=== PATIENT | male | born 1940 | race Hispanic/Latino ===

== ENCOUNTER 2018-04-16 18:17 | Observation (INO) | payer MEDICARE ==
[2018-04-16 18:17] VITALS: BMI 25.5
[2018-04-16 18:28] VITALS: BP 127/85; TEMP 98.6
--- NOTE | 2018-04-16 19:18 | ED PDOC ---
HPI: General Adult Time Seen by Provider: 04/16/18 18:31 Chief Complaint (Nursing): Shortness Of Breath Chief Complaint (Provider): Anxiety History Per: Patient, Family History/Exam Limitations: no limitations Onset/Duration Of Symptoms: Days Have you had recent travel within the past 21 days to any of the following countries: [place], [place], [place] or [place]?: No Current Symptoms Are (Timing): Still Present Additional Complaint(s): 77yo male, comes to ER accompanied by his daughter for evaluation of possible anxiety. Patient reports to having difficulty sleeping x 3 months and has not slept at all for the past 3 days. Patient states over the course of the past 3 days, he feels weak and today he felt anxious associated with intermittent palpitations, dizziness, and shortness of breath. He was evaluated by his PMD for difficulty sleeping and was prescribed Gabapentin which he takes before bed with no relief. Per daughter, patient has multiple stressors at home and "needs to get out of home environment." She states the patient's nephew lives "rent free" and comes and goes all hrs at night time, is increasingly noisy which stresses out the patient. Daughter states patient has refused to seek help for this; patient denies any suicidal or homicidal ideation. He also denies any headache, chest pain, nausea, vomiting, abdominal pain, vision changes or numbness. Patient has an appointment with Dr. Sr on 04/18/18. PMD: Dr. Sr Past Medical History Reviewed: Historical Data, Nursing Documentation, Vital Signs Vital Signs: Last Vital Signs Temp 98.6 F 04/17/18 04:27 Pulse 89 04/17/18 04:27 Resp 16 04/17/18 04:27 BP 127/85 04/17/18 04:27 Pulse Ox 97 04/19/18 14:24 - Medical History PMH: Benign Prostatic Hyperplasia, HTN - Surgical History Surgical History: Endoscopy, Hernia Repair - Family History Family History: States: Hypertension - Living Arrangements Living Arrangements: With Family - Social History Current smoker - smoking cessation education provided: No Alcohol: None Drugs: Cannabis (daily) - Home Medications Home Medications: Ambulatory Orders Medication Instructions Recorded Metoprolol Succinate XL [Toprol XL] 25 mg PO BID #0 tab 03/17/15 Tamsulosin [Flomax] 0.4 mg PO DAILY #0 cap 03/17/15 Polyethylene Glycol 3350 [Miralax] 17 gm PO DAILY #48 ml 03/21/15 - Allergies Allergies/Adverse Reactions: Allergies Allergy/AdvReac Type Severity Reaction Status Date / Time No Known Allergies Allergy Verified 03/21/15 12:26 Review of Systems ROS Statement: Except As Marked, All Systems Reviewed And Found Negative Constitutional: Negative for: Fever, Chills Eyes: Negative for: Vision Change Cardiovascular: Positive for: Palpitations. Negative for: Chest Pain Respiratory: Positive for: Shortness of Breath Neurological: Positive for: Dizziness Psych: Positive for: Anxiety, Other (trouble sleeping). Negative for: Suicidal ideation Physical Exam - Reviewed Nursing Documentation Reviewed: Yes Vital Signs Reviewed: Yes - Physical Exam Comments: GENERAL APPEARANCE: Patient is awake, alert, oriented x 3, in no acute distress. (+) agitated SKIN: Warm, dry; (-) cyanosis HEAD: (-) scalp swelling, (-) scalp tenderness. EYES: (-) conjunctival pallor, (-) scleral icterus, (-) nystagmus. ENMT: Mucous membranes moist. Airway patent: (-) stridor. NECK: Supple, FROM HEART AND CARDIOVASCULAR: (-) irregularity CHEST AND RESPIRATORY: (-) rales, (-) rhonchi, (-) wheezes; breath sounds diminished bilaterally. Respirations even and nonlabored. ABDOMEN: Soft, (-) distention, (-) tenderness, (-) guarding. NEURO AND PSYCH: Mental status as above. Affect: Emotional and tearful business lawyer: Intact. Pupils equal and reactive; EOMI; (-) facial asymmetry; tongue and uvula midline. Gait steady, speech clear. - Laboratory Results Result Diagrams: 04/16/18 19:38 04/16/18 19:38 - ECG O2 Sat by Pulse Oximetry: 97 (RA) Pulse Ox Interpretation: Normal Medical Decision Making Medical Decision Making: Impression: Fatigue, SOB, possible anxiety Plan: -- Labs -- EKG -- Chest x-ray -- Xanax 0.25mg PO -- IV access Initial triage EKG: Afib @ 92bpm, isolated ST elevation in V1 and V2 with no reciprocal changes as read by ED MD Conner 1934 Afib @ 80bpm, QTc 410, isolated ST elevation in V1 and V2 with no reciprocal changes as read by ED MD Conner [address] Izquierdo, family practice resident who is agreeable to evaluation in ED for new onset Afib. 1999 Case endorsed to Antoni Royal PA-C at 1999. Patient pending lab results, further disposition. Scribe Attestation: Documented by Griselda Mathis, acting as a scribe for HERB Redman Provider Scribe Attestation: All medical record entries made by the Scribe were at my direction and personally dictated by me. I have reviewed the chart and agree that the record accurately reflects my personal performance of the history, physical exam, medical decision making, and the department course for this patient. I have also personally directed, reviewed, and agree with the discharge instructions and disposition. Disposition - Clinical Impression Clinical Impression: New onset a-fib - Patient ED Disposition Is Patient to be Admitted: Transfer of Care (Case endorsed to Antoni Royal PA-C at 1999. Patient pending lab results, further disposition.) - Disposition Disposition: Transfer of Care (Case endorsed to Antoni Royal PA-C at 1999. Patient pending lab results, further disposition.) Disposition Time: 20:00 Condition: FAIR - POA Present On Arrival: None
[2018-04-16 19:48] LABS: PROTHROMBIN TIME 11.6 Seconds (9.8-13.1)
[2018-04-16 19:50] LABS: PARTIAL THROMBOPLASTIN TIME 32.9 Seconds (25.6-37.1)
[2018-04-16 19:55] LABS: BASO % 0.4 % (0.0-2.0); EOS # 0.2 K/uL (0.0-0.7); EOS % 2.5 % (0.0-4.0); HEMOGLOBIN 13.8 g/dL (12.0-18.0); LYMPH # 1.5 K/uL (1.0-4.3); LYMPH % 21.6 % (20.0-40.0); MEAN CELL VOLUME 86.2 fl (80.0-94.0); MEAN CORPUSCULAR HEMOGLOBIN 28.4 pg (27.0-31.0); MEAN CORPUSCULAR HGB CONC 32.9 g/dL (33.0-37.0); MEAN PLATELET VOLUME 8.3 fl (7.2-11.7); MONO # 0.7 K/uL (0.0-0.8); MONO % 10.9 % (0.0-10.0); NEUT # 4.4 K/uL (1.8-7.0); NEUT % 64.6 % (50.0-75.0); NRBC % 0.1 % (0.0-0.0); RBC 4.86 Mil/uL (4.40-5.90); RED CELL DISTRIBUTION WIDTH 13.4 % (11.5-14.5); WHITE BLOOD COUNT 6.8 K/uL (4.8-10.8)
[2018-04-16 20:09] LABS: ALB/GLOB RATIO 1.4 (1.0-2.1); ALBUMIN 4.3 g/dL (3.5-5.0); ALT/SGPT 25 U/L (21-72); AST/SGOT 23 U/L (17-59); BLOOD UREA NITROGEN 12 mg/dl (9-20); CALCIUM 9.3 mg/dL (8.4-10.2); GFR NON-AFRICAN AMERICAN > 60
[2018-04-16 20:21] LABS: B-TYPE NATRIURETIC PEPTIDE 2170 pg/ml (0-900)
--- NOTE | 2018-04-16 20:28 | ED PDOC ---
- Laboratory Results Result Diagrams: 04/16/18 19:38 04/16/18 19:38 - ECG O2 Sat by Pulse Oximetry: 97 (RA) - Radiology X-Ray: Viewed By Me X-Ray Interpretation: Cardiomegaly - Progress ED Course And Treament: Case endorsed to check writer salesperson from [facility] pending labs Patient with elevated D-Dimer; explained need to CT angio chest to r/out PE but patient refusing; states he has no chest pain, shortness of breath currently and does not want more radiation exposure. Patient made aware of risks of refusing test, including blood clot which can lead to respiratory distress, cardiac arrest. Patient demonstrates full understanding, still wishes to decline test at this time. Vitals stable Case discussed with FP resident on-call for admission Disposition - Clinical Impression Clinical Impression: New onset a-fib, CHF (congestive heart failure) - POA Present On Arrival: None - Disposition Disposition: Admitted as In-Patient Disposition Time: 21:29 Condition: FAIR
--- NOTE | 2018-04-16 22:42 | CP.PCM.PCO ---
Addendum Addendum: 04/16/18 22:38 Patient seen and examined bedside in ED. AAO x3. no delirium. Patient initially refused to be admitted and after counseling about risk of leaving from hospital patient decided to stay. When patient reevaluated in ED to get admitted he states that he wont stay in ER whole night waiting for a room in telemetry( nurse presents as witness) and he wants to go home. He states he only came to ED to get prescription meds to sleep. Patient signed AMA and will leave Patient was asking for sleep medications prescription. Patient explained that if he goes AMA no prescription will be given. Patient agree and states he will have appt in clinic this 04/18/18 Patient was ordered Xanax while in ED and refused. Cased discussed with Attending in ED Elliot Tejeda 04/16/18 22:43
[2018-04-17 04:30] VITALS: PULSE 89; RESP 16
--- NOTE | 2018-04-17 09:02 | RAD ---
Date of service: 04/16/2018 PROCEDURE: CHEST RADIOGRAPH, 1 VIEW HISTORY: SOB COMPARISON: Chest x-ray 03/16/[address] chest 02/07/2016 FINDINGS: LUNGS: Vague increased opacity right medial lung base -coalescent pulmonary edema and/or interval patchy infiltrate here are considerations. This slightly more accentuated on the current chest x-ray compared the 2015. In part this may relate to some coalescing atelectatic changes as a focal right small fat containing Bochdalek's hernia was noted on the after mentioned CT exam here. PLEURA: No pneumothorax or pleural fluid seen. CARDIOVASCULAR: Cardiomegaly. Interval increased pulmonary venous congestion. OSSEOUS STRUCTURES: No significant abnormalities. VISUALIZED UPPER ABDOMEN: Normal. OTHER FINDINGS: None. IMPRESSION: Cardiomegaly and pulmonary venous congestion -the latter increased since prior exam. Ill-defined opacity medial right lung base possible infiltrate -another consideration would be contiguous atelectatic changes bordering the focal right fat containing Bochdalek's hernia here. Nevertheless it is more conspicuous on the current study compared the chest x-ray from 03/08/2015. Correlate clinically
--- NOTE | 2018-04-17 10:14 | CARD ---
APPROVED REPORT Date of service: 04/16/2018 <Conclusion> Atrial fibrillation Abnormal ECG
[2018-04-19 14:20] VITALS: O2SAT 97
== END 2018-04-16 22:22 | disposition left against medical advice (07) ==
LOC: H.ER 18:17 → H.ERHOLD 21:40 → INTOOBSV 21:40
PROVIDERS: ADMIT Family Medicine Geriatric Medicine; ATTEND Family Medicine Geriatric Medicine
DX: I48.91 Unspecified atrial fibrillation (principal); R79.1 Abnormal coagulation profile; R53.83 Other fatigue; I11.0 Hypertensive heart disease with heart failure; I50.9 Heart failure, unspecified; F41.9 Anxiety disorder, unspecified; F12.90 Cannabis use, unspecified, uncomplicated; N40.0 Benign prostatic hyperplasia without lower urinary tract symptoms
CPT/HCPCS: 71045; 80053; 82948; 83880; 84484; 85025; 85378; 85610; 85730; 93005; 99285; G0378

== ENCOUNTER 2018-08-29 18:56 | Emergency (ER) | payer MEDICARE ==
[2018-08-29 18:56] VITALS: BMI 25.5
[2018-08-29] MEDS ORDERED: Albuterol-Ipratrop 3 mg / 0.5 (3 ml) UD INH STA (19:36)
--- NOTE | 2018-08-29 19:40 | ED PDOC ---
HPI: SOB/CHF/COPD Time Seen by Provider: 08/29/18 19:24 Chief Complaint (Nursing): Shortness Of Breath Chief Complaint (Provider): SOB History Per: Patient History/Exam Limitations: no limitations Additional Complaint(s): Pt reports SOB X "many months", cough with white sputum production. Denies fever, CP, palpitations. States compliant with Xarelto. Past Medical History Vital Signs: Last Vital Signs Temp 97.9 F 08/29/18 19:00 Pulse 74 08/29/18 19:00 Resp 18 08/29/18 19:18 BP 146/98 H 08/29/18 19:00 Pulse Ox 96 08/29/18 19:18 - Medical History PMH: Hiatal Hernia, HTN Denies: Cardia Arrhythmia, CHF, Hypercholesterolemia, Mitral Valve Prolapse, Peripheral Edema, Chronic Kidney Disease - Surgical History Surgical History: Endoscopy, Hernia Repair Denies: Appendectomy, CABG, Carotid Endarterectomy, Cholecystectomy, Coronary Stent, Pacemaker, Tonsillectomy - Family History Family History: States: Unknown Family Hx, Hypertension - Living Arrangements Living Arrangements: With Family - Social History Current smoker - smoking cessation education provided: No Drugs: Cannabis - Home Medications Home Medications: Ambulatory Orders Medication Instructions Recorded Metoprolol Succinate XL [Toprol XL] 25 mg PO BID #0 tab 03/17/15 Tamsulosin [Flomax] 0.4 mg PO DAILY #0 cap 03/17/15 Polyethylene Glycol 3350 [Miralax] 17 gm PO DAILY #48 ml 03/21/15 Albuterol 0.083% [Albuterol 0.083% 3 ml IH Q6H PRN #30 neb 08/29/18 Inhal Hawa (2.5 mg/3 ml) UD] Albuterol 0.5% [Albuterol 0.5% 3 ml IH Q6H PRN #30 neb 08/29/18 Inhal Hawa (2.5 mg/0.5 ml) UD] Albuterol HFA [Ventolin HFA 90 2 puff IH [id number] PRN #1 bottle 08/29/18 mcg/actuation (8 g)] Azithromycin [Zithromax] 500 mg PO DAILY #3 tab 08/29/18 Nebulizer [Compact Compressor 1 dev XX PRN PRN #1 dev 08/29/18 Nebulizer] - Allergies Allergies/Adverse Reactions: Allergies Allergy/AdvReac Type Severity Reaction Status Date / Time No Known Allergies Allergy Verified 03/21/15 12:26 Review of Systems Constitutional: Negative for: Fever, Chills Cardiovascular: Negative for: Chest Pain, Palpitations Respiratory: Positive for: Cough, Shortness of Breath, Sputum (White) Gastrointestinal: Negative for: Abdominal Pain Skin: Negative for: Rash Neurological: Negative for: Headache Physical Exam - Reviewed Nursing Documentation Reviewed: Yes Vital Signs Reviewed: Yes - Physical Exam Appears: Positive for: Well, No Acute Distress (Speaking full sentences) Skin: Positive for: Normal Color, Warm, Dry Eye Exam: Positive for: Normal appearance, EOMI, PERRL Cardiovascular/Chest: Positive for: Irregularly Irregular Respiratory: Positive for: Normal Breath Sounds. Negative for: Rales, Rhonchi, Wheezing Gastrointestinal/Abdominal: Positive for: Normal Exam Extremity: Positive for: Normal ROM Neurologic/Psych: Positive for: Alert, Oriented - Laboratory Results Result Diagrams: 08/29/18 19:45 08/29/18 19:45 - ECG O2 Sat by Pulse Oximetry: 96 Medical Decision Making Medical Decision Makin yo male with SOB. - labs - EKG - CXR - Albuterol/atrovent nebs 23:23 --CTA chest FINDINGS: There are scattered emphysematous blebs present. Biapical scarring is seen. There are confluent opacities present at both lung bases and lingula, compatible with pneumonia. There is bright opacification of the aorta and pulmonary arterial structures. The aorta is normal caliber and there is no dissection of the intima. No defect is seen in the pulmonary arteries to suggest pulmonary embolus. The lungs are fully expanded and there is no consolidation, mass, or pleural effusion. Heart is severely enlarged. Pulmonary venous congestive changes are present. Diffuse coronary calcifications are present. There is severe reflux of contrast into the IVC and hepatic veins consistent with right heart failure. There are calcified right hilar lymph nodes present, consistent with prior granulomatous disease. There is a 3 cm cyst present in the superior pole of the right kidney. The bony structures are free of lytic or blastic lesions. Multilevel degenerative changes are seen involving the thoracic spine. Scattered calcifications are seen involving the aorta and visualized major branches compatible with atherosclerosis. IMPRESSION: 1. CTA Chest negative for pulmonary embolus. 2. Scattered emphysematous blebs. 3. Pneumonia. 4. Severely-enlarged heart. Pulmonary venous congestive changes and diffuse coronary calcifications. 5. Evidence of right heart failure. 6. Evidence of prior granulomatous disease. 7. Right kidney cyst. Disposition - Clinical Impression Clinical Impression: Pneumonia - Disposition Disposition: Against Medical Advice Disposition Time: 23:40 Condition: UNKNOWN Prescriptions: Albuterol HFA [Ventolin HFA 90 mcg/actuation (8 g)] 2 puff IH [id number] PRN #1 bottle PRN Reason: Shortness Of Breath Albuterol 0.083% [Albuterol 0.083% Inhal Hawa (2.5 mg/3 ml) UD] 3 ml IH Q6H PRN #30 neb PRN Reason: Shortness Of Breath Albuterol 0.5% [Albuterol 0.5% Inhal Hawa (2.5 mg/0.5 ml) UD] 3 ml IH Q6H PRN #30 neb PRN Reason: Shortness Of Breath Azithromycin [Zithromax] 500 mg PO DAILY #3 tab Nebulizer [Compact Compressor Nebulizer] 1 dev XX PRN PRN #1 dev PRN Reason: Shortness Of Breath Instructions: Pneumonia in Adults Forms: [email or web address] ([place])
[2018-08-29] MEDS ORDERED: Albuterol-Ipratrop 3 mg / 0.5 (3 ml) UD ONE (19:43)
[2018-08-29 20:00] LABS: BASO % 0.8 % (0.0-2.0); EOS # 0.1 K/uL (0.0-0.7); EOS % 2.5 % (0.0-4.0); HEMOGLOBIN 13.6 g/dL (12.0-18.0); LYMPH # 1.2 K/uL (1.0-4.3); MEAN CELL VOLUME 84.8 fl (80.0-94.0); MEAN CORPUSCULAR HEMOGLOBIN 27.7 pg (27.0-31.0); MEAN CORPUSCULAR HGB CONC 32.7 g/dL (33.0-37.0); MEAN PLATELET VOLUME 8.7 fl (7.2-11.7); MONO # 0.5 K/uL (0.0-0.8); MONO % 9.6 % (0.0-10.0); NEUT # 3.1 K/uL (1.8-7.0); NEUT % 62.1 % (50.0-75.0); RBC 4.92 Mil/uL (4.40-5.90); WHITE BLOOD COUNT 4.9 K/uL (4.8-10.8)
[2018-08-29 20:16] LABS: INR 1.7; PROTHROMBIN TIME 19.7 Seconds (9.8-13.1)
[2018-08-29 20:19] LABS: PARTIAL THROMBOPLASTIN TIME 41.7 Seconds (25.6-37.1)
[2018-08-29 20:52] LABS: ALB/GLOB RATIO 1.3 (1.0-2.1); ALBUMIN 3.9 g/dL (3.5-5.0); ALT/SGPT 42 U/L (21-72); AST/SGOT 35 U/L (17-59); BLOOD UREA NITROGEN 23 mg/dl (9-20); CALCIUM 9.2 mg/dL (8.4-10.2); GFR NON-AFRICAN AMERICAN > 60
[2018-08-29] MEDS ORDERED: Sodium Chloride 0.9% 50 ML IV ONE (22:11)
[2018-08-29] MEDS ORDERED: Iodixanol 320 MG/ML 100 ML BOTTLE IV ONE (22:11)
[2018-08-29 22:52] VITALS: BP 134/87; RESP 20
[2018-08-29] MEDS ORDERED: Azithromycin 500 MG in Sodium Chloride 0.9% 250 ML IV STA (23:25)
[2018-08-29 23:26] VITALS: O2SAT 96
[2018-08-29 23:52] VITALS: PULSE 103; TEMP 97.8
--- NOTE | 2018-08-30 09:10 | RAD ---
Date of service: 08/29/2018 HISTORY: SOB COMPARISON: Frontal chest radiograph 04/08/2018. FINDINGS: LUNGS: No active pulmonary disease. PLEURA: No significant pleural effusion identified, no pneumothorax apparent. CARDIOVASCULAR: No aortic atherosclerotic calcification present. Cardiomegaly reiterated. Borderline pulmonary vascular congestion. OSSEOUS STRUCTURES: No significant abnormalities. VISUALIZED UPPER ABDOMEN: Normal. OTHER FINDINGS: None. IMPRESSION: Borderline pulmonary vascular congestion. No acute pulmonary disease appreciable.
--- NOTE | 2018-08-30 10:01 | CT ---
Date of service: 08/29/2018 PROCEDURE: CT Chest with contrast (Pulmonary Angiogram) HISTORY: SOB COMPARISON: Chest CT with contrast 02/07/2016. TECHNIQUE: Axial computed tomography images were obtained of the chest in the pulmonary arterial phase of enhancement. Coronal and sagittal reformatted images were created and reviewed. Intravenous contrast dose: Visipaque 320, 90 cc Radiation dose: Total exam DLP = 411.47 mGy-cm. This CT exam was performed using one or more of the following dose reduction techniques: Automated exposure control, adjustment of the mA and/or kV according to patient size, and/or use of iterative reconstruction technique. FINDINGS: PULMONARY ARTERIES: Unremarkable. No pulmonary embolism. AORTA: No acute findings. No thoracic aortic aneurysm. No aortic atherosclerotic calcification or mural plaque present. LUNGS: Limited ground-glass opacity is seen at the bilateral lung bases as well as dependent subsegmental atelectasis at the right greater than left bases. No nodule, mass or pulmonary consolidation. PLEURAL SPACES: Unremarkable. No effusion or pneumothorax. Minimal mammillation right hemidiaphragm versus small Bochdalek hernia noted at the right hemidiaphragm posteriorly containing only mesenteric fat. HEART: Cardiomegaly identified. No increased right:left ventricle ratio. Calcified atherosclerotic changes seen at the thoracic aorta without aneurysm development. Extensive coronary artery calcified calcifications are identified. LYMPH NODES: No lymphadenopathy. BONES, CHEST WALL: Unremarkable. No fracture or destructive lesion OTHER FINDINGS: Small hiatal hernia encountered. Upper pole right renal cyst appears stable as well as visualized lower pole left renal cyst. Left lobe hepatic lucency increased in size slightly. IMPRESSION: 1. No CT evidence of acute pulmonary embolus. 2. Limited ground-glass opacity bilateral lower lobe bases. Limited subsegmental atelectasis right greater than left lung base. No acute alveolitis. 3. Stable cardiomegaly. No definite pulmonary vascular congestion. 4. Small hiatal hernia and mammillation right hemidiaphragm again evident. 5. Incidental abdominal findings as discussed above. Preliminary report provided by Stewart, 08/29/2018, 11:23 p.m..
--- NOTE | 2018-08-30 20:50 | CARD ---
APPROVED REPORT Date of service: 08/29/2018 EKG Measurement Heart [id number] <Conclusion> Atrial fibrillation with premature ventricular or aberrantly conducted complexes Incomplete right bundle branch block Nonspecific ST abnormality Abnormal ECG
--- NOTE | 2018-08-30 20:51 | CARD ---
APPROVED REPORT Date of service: 08/29/2018 EKG Measurement Heart [id number] <Conclusion> Atrial fibrillation with rapid ventricular response with premature ventricular or aberrantly conducted complexes Minimal voltage criteria for LVH, may be normal variant Junctional ST depression, probably normal Abnormal ECG
== END 2018-08-29 23:40 | disposition left against medical advice (07) ==
LOC: H.ER 18:56
DX: J18.9 Pneumonia, unspecified organism (principal); I51.7 Cardiomegaly; I50.810 Right heart failure, unspecified; N28.1 Cyst of kidney, acquired; I11.0 Hypertensive heart disease with heart failure
CPT/HCPCS: 71045; 71275; 80053; 84484; 85025; 85378; 85610; 85730; 87040; 93005; 94640; 99285; Q9967

== ENCOUNTER 2018-12-06 05:11 | Inpatient (IN) | payer MEDICARE ==
[2018-12-06 05:27] VITALS: BMI 27.8
[2018-12-06 05:36] LABS: ABG ALLEN TEST YES; ARTERIAL BLOOD GAS HCO3 22.9 mmol/L (21-28); ARTERIAL BLOOD GAS O2 SAT 100.7 % (95-98); ARTERIAL BLOOD GAS PCO2 26 mm/Hg (35-45); ARTERIAL BLOOD GAS PH 7.48 (7.35-7.45); ARTERIAL BLOOD GAS PO2 117 mm/Hg (80-100); ARTERIAL BLOOD GAS TCO2 20.2 mmol/L (22-28)
--- NOTE | 2018-12-06 05:45 | ED PDOC ---
HPI: SOB/CHF/COPD Time Seen by Provider: 12/06/18 05:25 Chief Complaint (Nursing): Shortness Of Breath Chief Complaint (Provider): Shortness Of Breath History Per: Patient, Family (Daughter) History/Exam Limitations: no limitations Additional Complaint(s): 78 years old male presents to ER with acute onset of shortness of breath and sense of impending doom. Patient was picked up by EMS who placed him on 4' nasal cannula and gave 2 nitro. Per EMS, patient has rales at lung bases. Patient appears diaphoretic, unable to states when symptoms started but reporting worsening of symptoms and stating he cannot breath. Per daughter, patient was in the hospital 1 month ago at [facility] for a heart surgery. Daughter, Amanda ([phone]) at bedside does not have more information to give at this time. PMD: None provided Past Medical History Reviewed: Historical Data, Nursing Documentation, Vital Signs Vital Signs: Last Vital Signs Temp 95.5 F L 12/06/18 05:26 Pulse 71 12/06/18 05:26 Resp 22 12/06/18 05:26 BP 129/81 12/06/18 05:38 Pulse Ox 99 12/06/18 05:26 - Medical History PMH: Hiatal Hernia, HTN Denies: Cardia Arrhythmia, CHF, Hypercholesterolemia, Mitral Valve Prolapse, Peripheral Edema, Chronic Kidney Disease - Surgical History Surgical History: Endoscopy, Hernia Repair Denies: Appendectomy, CABG, Carotid Endarterectomy, Cholecystectomy, Coronary Stent, Pacemaker, Tonsillectomy - Family History Family History: States: Unknown Family Hx, Hypertension - Home Medications Home Medications: Ambulatory Orders Medication Instructions Recorded Metoprolol Succinate XL [Toprol XL] 25 mg PO BID #0 tab 03/17/15 Tamsulosin [Flomax] 0.4 mg PO DAILY #0 cap 03/17/15 Polyethylene Glycol 3350 [Miralax] 17 gm PO DAILY #48 ml 03/21/15 Albuterol 0.083% [Albuterol 0.083% 3 ml IH Q6H PRN #30 neb 08/29/18 Inhal Hawa (2.5 mg/3 ml) UD] Albuterol 0.5% [Albuterol 0.5% 3 ml IH Q6H PRN #30 neb 08/29/18 Inhal Hawa (2.5 mg/0.5 ml) UD] Albuterol HFA [Ventolin HFA 90 2 puff IH [id number] PRN #1 bottle 08/29/18 mcg/actuation (8 g)] Azithromycin [Zithromax] 500 mg PO DAILY #3 tab 08/29/18 Nebulizer [Compact Compressor 1 dev XX PRN PRN #1 dev 08/29/18 Nebulizer] - Allergies Allergies/Adverse Reactions: Allergies Allergy/AdvReac Type Severity Reaction Status Date / Time No Known Allergies Allergy Verified 12/06/18 05:20 Review of Systems ROS Statement: Except As Marked, All Systems Reviewed And Found Negative Respiratory: Positive for: Shortness of Breath Physical Exam - Reviewed Nursing Documentation Reviewed: Yes Vital Signs Reviewed: Yes - Physical Exam Head Exam: Positive for: ATRAUMATIC, NORMOCEPHALIC Skin: Positive for: Diaphoresis. Negative for: Normal Color (Patient is ashen in color) Eye Exam: Positive for: Normal appearance, EOMI, PERRL ENT: Positive for: Normal ENT Inspection Neck: Positive for: Normal, Painless ROM, Supple Cardiovascular/Chest: Positive for: Regular Rate, Rhythm. Negative for: Murmur Respiratory: Positive for: Accessory Muscle Use, Other (3 to 5 B lines in lower lung robles. Lung sliding throughout on bedside sonogram) Gastrointestinal/Abdominal: Positive for: Normal Exam, Soft, Other (reducible ventral hernia). Negative for: Tenderness Back: Positive for: Normal Inspection. Negative for: L CVA Tenderness, R CVA Tenderness Extremity: Positive for: Normal ROM. Negative for: Pedal Edema, Deformity Neurological/Psych: Positive for: Awake, Alert, Oriented (x3) - Laboratory Results Result Diagrams: 12/06/18 06:14 12/06/18 06:14 Lab Results: pCO2 26 mm/Hg (35-45) L 12/06/18 05:35 pO2 117 mm/Hg (80-100) H 12/06/18 05:35 HCO3 22.9 mmol/L (21-28) 12/06/18 05:35 ABG pH 7.48 (7.35-7.45) H 12/06/18 05:35 ABG Total CO2 20.2 mmol/L (22-28) L 12/06/18 05:35 ABG O2 Saturation 100.7 % (95-98) H 12/06/18 05:35 ABG Base Excess -2.5 mmol/L (-2.0-3.0) L 12/06/18 05:35 Moe Test Yes 12/06/18 05:35 ABG Potassium 3.4 mmol/L (3.6-5.2) L 12/06/18 05:35 A-a O2 Difference 107.0 mm/Hg 12/06/18 05:35 Sodium 126.0 mmol/L (132-148) L 12/06/18 05:35 Chloride 96.0 mmol/L (98-107) L 12/06/18 05:35 Glucose 222 mg/dL (75-110) H 12/06/18 05:35 Lactate 3.0 mmol/L (0.7-2.1) H 12/06/18 05:35 FiO2 36.0 % 12/06/18 05:35 - ECG O2 Sat by Pulse Oximetry: 99 (RA) Pulse Ox Interpretation: Normal - Critical Care Total Time (In Min): 60 Documented Critical Care: Time excludes all time spent performint seperately billable procedures Medical Decision Making Medical Decision Making: Time: 524 MDM: Workup for CHF exacerbation vs. other cause of acute shortness of breath --40 mg IV Lasix given now --Labs with sepsis workup --Chest x-ray --Further cardiac workup --Reassess patient [id number] --Patient no longer is vomiting, on rafal hugger. --ABG shows 7.48 with pOC2 of 26 and lactate of 3.0 --Patient is in respiratory alkalosis --Mild infiltrate on CXR, will started on bipap --Labs pending 657 Admission delayed as chemistry hemolyzed waiting on cardiac enzymes for admission. Will admits patient to Dr. Mtz to telemetry. Scribe Attestation: Documented by Caron Manning, acting as a scribe for Azalea Conner MD. Provider Scribe Attestation: All medical record entries made by the Scribe were at my direction and personally dictated by me. I have reviewed the chart and agree that the record accurately reflects my personal performance of the history, physical exam, medical decision making, and the department course for this patient. Disposition - Clinical Impression Clinical Impression: CHF exacerbation - Patient ED Disposition Is Patient to be Admitted: Yes - Disposition Disposition Time: 06:58 Condition: GUARDED Forms: [employer] ([place])
[2018-12-06 06:26] LABS: BASO % 0.4 % (0.0-2.0); EOS # 0.2 K/uL (0.0-0.7); EOS % 2.4 % (0.0-4.0); HEMOGLOBIN 13.5 g/dL (12.0-18.0); LYMPH # 1.9 K/uL (1.0-4.3); LYMPH % 28.3 % (20.0-40.0); MEAN CELL VOLUME 84.1 fl (80.0-94.0); MEAN CORPUSCULAR HEMOGLOBIN 27.7 pg (27.0-31.0); MEAN CORPUSCULAR HGB CONC 32.9 g/dL (33.0-37.0); MEAN PLATELET VOLUME 9.2 fl (7.2-11.7); MONO # 0.5 K/uL (0.0-0.8); NEUT # 4.1 K/uL (1.8-7.0); NEUT % 60.9 % (50.0-75.0); NRBC % 0.1 % (0.0-0.0); RBC 4.87 Mil/uL (4.40-5.90); WHITE BLOOD COUNT 6.7 K/uL (4.8-10.8)
[2018-12-06 06:30] LABS: INR 1.1; PROTHROMBIN TIME 12.8 Seconds (9.8-13.1)
[2018-12-06 06:33] LABS: PARTIAL THROMBOPLASTIN TIME 29.4 Seconds (25.6-37.1)
[2018-12-06 06:51] LABS: BLOOD UREA NITROGEN 17 mg/dl (9-20); CALCIUM 9.3 mg/dL (8.4-10.2); GFR NON-AFRICAN AMERICAN > 60
[2018-12-06 07:03] LABS: B-TYPE NATRIURETIC PEPTIDE 1050 pg/ml (0-900)
--- NOTE | 2018-12-06 08:20 | CP.PCM.HP ---
<Belinda Meza - Last Filed: 12/06/18 11:32> History of Present Illness - History of Present Illness History of Present Illness: Pt is a 78 yo M with hx of recent PCI 5 stents placed at [facility] 1 mo ago, A fib, BPH, HTN presented to the ED with SOB, fatigue, feeling off, weakness and blurry vision admitted for CHF exacerbation. Pt reports his symptoms have improved since arrival. Currently denies fever, chills, cough, chest pain, SOB, nausea, vomiting, diarrhea, constipation. Pt has a bhatia in place yellow urine output. PMD: [facility] Card: Dr. Moreno PMHx:PCI s/p 5 stents, A fib, BPH, HTN, hyponatremia, nephrolithiasis, colonic polyps Meds: Metoprolol 50mg QD, Xarelto 20mg QD, ASA 81mg QD, Tamsulosin 0.4mg QD, Miralax, Albuterol Allergies:NKDA Surg: Umbilical and ventral hernia repair 2013 Fam Hx: father 58 had hx of heart dz, Mom at 70 [place] Social Hx: Smoked 1-2 cigs/30yrs, denies alcohol or drug use. Code status: Full code ED course: Bhatia placed 1L output , EKG- A fib, Lasix 40mg IVP, Troponin x1 negative, BNP 1050, Lasix 40mg IVP, BiPAP, CBC and U/A-WNL, BMP, CXR- No active pulm dz- cephalization noted, PT 12.8, PTT 29.4, INR 1.1, ABG- PH 7.48 , PCO2 26, Lactate 3.0, Influenza neg, Admitted to telemetry Present on Admission - Present on Admission Any Indicators Present on Admission: No History of DVT/PE: No History of Uncontrolled Diabetes: No Urinary Catheter: No Decubitus Ulcer Present: No Review of Systems - Constitutional Constitutional: Fatigue - Respiratory Respiratory: Dyspnea - Gastrointestinal Gastrointestinal: absent: Constipation, Diarrhea, Nausea, Vomiting Past Patient History - Infectious Disease Hx of Infectious Diseases: None - Tetanus Immunizations Tetanus Immunization: Up to Date - Past Medical History & Family History Past Medical History?: Yes - Past Social History Smoking Status: Former Smoker Alcohol: None Drugs: Denies - CARDIAC Hx Cardia Arrhythmia: No Hx Congestive Heart Failure: No Hx Hypercholesterolemia: No Hx Hypertension: Yes Hx Mitral Valve Prolapse: No Hx Pacemaker: No Hx Peripheral Edema: No - PULMONARY Hx Respiratory Disorders: No - NEUROLOGICAL Hx Neurological Disorder: No - HEENT Hx HEENT Problems: No - RENAL Hx Chronic Kidney Disease: No - ENDOCRINE/METABOLIC Hx Endocrine Disorders: No - HEMATOLOGICAL/ONCOLOGICAL Hx Blood Disorders: No - INTEGUMENTARY Hx Dermatological Problems: No - MUSCULOSKELETAL/RHEUMATOLOGICAL Hx Musculoskeletal Disorders: No Hx Falls: No Hx Herniated Disk: Yes - GASTROINTESTINAL Hx Gastrointestinal Disorders: No Hx Bowel Surgery: No - GENITOURINARY/GYNECOLOGICAL Hx Genitourinary Disorders: Yes Hx Prostate Problems: Yes (BPH) - PSYCHIATRIC Hx Psychophysiologic Disorder: No Hx Emotional Abuse: No Hx Physical Abuse: No Hx Substance Use: No - SURGICAL HISTORY Hx Appendectomy: No Hx Carotid Endarterectomy: No Hx Cholecystectomy: No Hx Coronary Artery Bypass Graft: No Hx Coronary Stent: No Hx Tonsillectomy: No - ANESTHESIA Hx Anesthesia: Yes Hx Anesthesia Reactions: No Hx Malignant Hyperthermia: No Meds Allergies/Adverse Reactions: Allergies Allergy/AdvReac Type Severity Reaction Status Date / Time No Known Allergies Allergy Verified 12/06/18 05:20 Physical Exam - Constitutional Appears: Toxic, No Acute Distress - Head Exam Head Exam: ATRAUMATIC, NORMAL INSPECTION, NORMOCEPHALIC - Eye Exam Eye Exam: EOMI Additional comments: Wearing Nasal cannula - ENT Exam ENT Exam: Mucous Membranes Moist - Respiratory Exam Respiratory Exam: Clear to Auscultation Bilateral. absent: Rales, Rhonchi, Wheezes - Cardiovascular Exam Cardiovascular Exam: Irregular Rhythm, +S1, +S2 - GI/Abdominal Exam GI & Abdominal Exam: Distended, Normal Bowel Sounds, Soft. absent: Rebound, R igid, Tenderness Additional comments: laparoscopic incision scars - Neurological Exam Neurological exam: Alert, Oriented x3 (Person, place and time) Results - Vital Signs Recent Vital Signs: Last Vital Signs Temp 97.4 F L 12/06/18 07:40 Pulse 71 12/06/18 07:40 Resp 24 12/06/18 07:40 BP 119/78 12/06/18 07:40 Pulse Ox 98 12/06/18 07:40 - Labs Result Diagrams: 12/06/18 06:14 12/06/18 06:14 Labs: Laboratory Results - last 24 hr 04/19/19 04/19/19 04/19/19 05:21 05:35 06:14 WBC RBC Hgb Hct MCV MCH MCHC RDW Plt Count MPV Neut % (Auto) Lymph % (Auto) [place] % (Auto) Eos % (Auto) Baso % (Auto) Neut # (Auto) Lymph # (Auto) [place] # (Auto) Eos # (Auto) Baso # (Auto) PT INR APTT pCO2 26 L pO2 117 H HCO3 22.9 ABG pH 7.48 H ABG Total CO2 20.2 L ABG O2 Saturation 100.7 H ABG Base Excess -2.5 L Moe Test Yes ABG Potassium 3.4 L A-a O2 Difference 107.0 Sodium 126.0 L 132 Chloride 96.0 L 96 L Glucose 222 H Lactate 3.0 H FiO2 36.0 Potassium 3.6 Carbon Dioxide 21 L Anion Gap 19 BUN 17 Creatinine 0.7 L Est GFR ( Amer) > 60 Est GFR (Non-Af Amer) > 60 POC Glucose (mg/dL) 240 H Random Glucose 212 H Calcium 9.3 Troponin I < 0.0120 NT-Pro-B Natriuret Pep 1050 H Arterial Blood Potassium 3.4 L Influenza Typ A,B (EIA) 12/06/18 12/06/18 12/06/18 06:14 06:14 06:14 WBC 6.7 RBC 4.87 Hgb 13.5 Hct 40.9 MCV 84.1 MCH 27.7 MCHC 32.9 L RDW 15.0 H Plt Count 237 MPV 9.2 Neut % (Auto) 60.9 Lymph % (Auto) 28.3 [place] % (Auto) 8.0 Eos % (Auto) 2.4 Baso % (Auto) 0.4 Neut # (Auto) 4.1 Lymph # (Auto) 1.9 [place] # (Auto) 0.5 Eos # (Auto) 0.2 Baso # (Auto) 0.0 PT 12.8 INR 1.1 APTT 29.4 pCO2 pO2 HCO3 ABG pH ABG Total CO2 ABG O2 Saturation ABG Base Excess Moe Test ABG Potassium A-a O2 Difference Sodium Chloride Glucose Lactate FiO2 Potassium Carbon Dioxide Anion Gap BUN Creatinine Est GFR ( Amer) Est GFR (Non-Af Amer) POC Glucose (mg/dL) Random Glucose Calcium Troponin I NT-Pro-B Natriuret Pep Arterial Blood Potassium Influenza Typ A,B (EIA) Negative for flu a/b Assessment & Plan - Assessment and Plan (Free Text) Assessment: Pt is a 78 yo M with hx of recent PCI 5 stents placed at [facility] 1 mo ago, A fib, BPH, HTN presented to the ED with SOB, fatigue, feeling off, weakness and blurry vision admitted for CHF exacerbation. CHF exacerbation acute Admit to telemetry Bhatia placed 1L output Lasix 40mg IV Q 12h, ASA 81 QD Troponin x1 negative (trend x2 Q6h) EKG A Fib BNP 1050 Nasal cannula CBC and U/A-WNL, BMP, CXR- No active pulm dz- cephalization noted PT 12.8, PTT 29.4, INR 1.1 ABG- PH 7.48 , PCO2 26 Lactate 3.0 F/u trops, CMP, Lactate, blood cx, in AM BPH chronic bhatia placed 1L output c/w Tamsulosin 0.4mg QD Diet Heart healthy DVT PPx Heparin - Date & Time Date: 12/06/18 Time: 12:46 <Debbie Mtz - Last Filed: 12/09/18 13:10> Results - Vital Signs Recent Vital Signs: Last Vital Signs Temp 97.5 F L 12/09/18 11:50 Pulse 84 12/09/18 11:50 Resp 18 12/09/18 11:50 BP 111/67 12/09/18 11:50 Pulse Ox 98 12/09/18 11:50 - Labs Result Diagrams: 12/09/18 05:18 12/09/18 05:18 Labs: Laboratory Results - last 24 hr 12/08/18 12/09/18 12/09/18 22:00 05:18 05:18 WBC 6.8 RBC 4.87 Hgb 13.7 Hct 40.9 MCV 84.0 MCH 28.1 MCHC 33.5 RDW 14.5 Plt Count 187 MPV 8.1 Neut % (Auto) 68.3 Lymph % (Auto) 20.5 [place] % (Auto) 10.0 Eos % (Auto) 0.9 Baso % (Auto) 0.3 Neut # (Auto) 4.6 Lymph # (Auto) 1.4 [place] # (Auto) 0.7 Eos # (Auto) 0.1 Baso # (Auto) 0.0 PT 13.2 H INR 1.2 APTT 30.0 Sodium Potassium Chloride Carbon Dioxide Anion Gap BUN Creatinine Est GFR ( Amer) Est GFR (Non-Af Amer) Random Glucose Calcium Urine Osmolality 529 Ur Random Sodium 14 Ur Random Potassium 67.5 12/09/18 05:18 WBC RBC Hgb Hct MCV MCH MCHC RDW Plt Count MPV Neut % (Auto) Lymph % (Auto) [place] % (Auto) Eos % (Auto) Baso % (Auto) Neut # (Auto) Lymph # (Auto) [place] # (Auto) Eos # (Auto) Baso # (Auto) PT INR APTT Sodium 126 L Potassium 3.7 Chloride 84 L Carbon Dioxide 34 H Anion Gap 12 BUN 27 H Creatinine 0.8 Est GFR ( Amer) > 60 Est GFR (Non-Af Amer) > 60 Random Glucose 110 Calcium 9.1 Urine Osmolality Ur Random Sodium Ur Random Potassium Attending/Attestation - Attestation I have personally seen and examined this patient.: Yes I have fully participated in the care of the patient.: Yes I have reviewed all pertinent clinical information: Yes Notes (Text): agree with findings and plan as above. patient admitted for chf exacerbation. comfortable and stable during examination, in no distress. diurese, strict i/o, trend enzymes, reeval in AM
[2018-12-06 08:40] LABS: URINE BILIRUBIN NEGATIVE (NEGATIVE); URINE BLOOD MODERATE (NEGATIVE); URINE CLARITY CLEAR (Clear); URINE COLOR STRAW (YELLOW); URINE GLUCOSE (UA) NEG (NEGATIVE); URINE LEUKOCYTE ESTERASE NEG Leu/uL (Negative); URINE PROTEIN NEGATIVE (NEGATIVE); URINE UROBILINOGEN 0.2-1.0 mg/dL (0.2-1.0)
[2018-12-06] MEDS ORDERED: Albuterol 0.083% Inhal Sol (2.5 mg/3 mL) UD IH PRN (08:40)
[2018-12-06] MEDS ORDERED: Metoprolol Succinate 50 mg XL Tab PO SCH (09:00)
[2018-12-06] MEDS ORDERED: Potassium Chloride 20 mEq ER Tab PO SCH (09:00)
--- NOTE | 2018-12-06 09:39 | CARD ---
APPROVED REPORT Date of service: 12/06/2018 EKG Measurement Heart [id number] <Conclusion> Atrial fibrillation RSR' or QR pattern in V1 suggests right ventricular conduction delay ST & T wave abnormality, consider lateral ischemia Abnormal ECG
--- NOTE | 2018-12-06 10:32 | RAD ---
Date of service: 12/06/2018 HISTORY: possible admission COMPARISON: 08/29/2018 FINDINGS: LUNGS: The lungs are well inflated and clear. There is mild pulmonary venous congestion. PLEURA: No pleural effusions or pneumothorax. CARDIOVASCULAR: Persistent moderate. There are aortic atherosclerotic calcifications present. OSSEOUS STRUCTURES: Within normal limits for the patient's age. VISUALIZED UPPER ABDOMEN: Normal. OTHER FINDINGS: None. IMPRESSION: No active pulmonary disease. No significant interval change.
[2018-12-06] MEDS ORDERED: Heparin 25,000units in D5W 25,000 UNITS/250 ML BAG IV SCH (10:45)
--- NOTE | 2018-12-06 12:46 | CP.PCM.PCO ---
<Belinda Meza - Last Filed: 12/06/18 12:46> Addendum Addendum: 12/06/18 12:47 Medicine team was called at 10am after patient was found by nurses to be SOB, diaphoretic nauseous and vomiting x1. Team arrived and assessed the patient BP 155/87 HR 72, T 95.7, O2Sat 98% 3L EKG- new ST depressions noted in leads V5-V6 new since admission Accuchek 153 Troponin stat Heparin drip ASA 325mg stat Carvedilol 6.25mg PO Q12 Lasix 40mg IVP x1 Nitroglycerin 0.4mg x1 repeat CXR After intervention pt reports his SOB, diaphoretic, N/V resolved. BP: 119/72, HR: 64, O2sat 97% 3L Attending: Dr. Mtz Residents: Dr. Td Norris, Dr. Louisa Augustin, Dr. Belinda Meza <Debbie Mtz - Last Filed: 12/09/18 13:07> Attending/Attestation - Attestation I have personally seen and examined this patient.: Yes I have fully participated in the care of the patient.: Yes I have reviewed all pertinent clinical information: Yes Notes (Text): agree with findings and plan as above.
--- NOTE | 2018-12-06 16:13 | RAD ---
Date of service: 12/06/2018 PROCEDURE: CHEST RADIOGRAPH, 1 VIEW HISTORY: CHF COMPARISON: 12/06/2018 at 5:22 a.m. FINDINGS: LUNGS: The lungs are well inflated. Again seen is mild pulmonary venous congestion. There is atelectasis/scarring in the left lower lobe. There is subsegmental atelectasis in the right lower lobe. PLEURA: No pneumothorax or pleural effusion. CARDIOVASCULAR: Persistent moderate cardiomegaly. There are aortic atherosclerotic calcifications present. OSSEOUS STRUCTURES: Within normal limits for the patient's age. VISUALIZED UPPER ABDOMEN: Normal. OTHER FINDINGS: None. IMPRESSION: No active pulmonary disease. Persistent moderate cardiomegaly and mild pulmonary venous congestion
[2018-12-06] MEDS ORDERED: Pneumococcal 23-Valent Vaccine IM ONE (16:33)
[2018-12-06 16:56] LABS: INR 1.2; PROTHROMBIN TIME 13.1 Seconds (9.8-13.1)
[2018-12-06 16:58] LABS: PARTIAL THROMBOPLASTIN TIME 47.2 Seconds (25.6-37.1)
--- NOTE | 2018-12-06 23:47 | CARD ---
APPROVED REPORT Date of service: 12/06/2018 EKG Measurement Heart [id number] <Conclusion> Atrial fibrillation with premature ventricular complexes ST & T wave abnormality, consider lateral ischemia Prolonged QT Abnormal ECG
[2018-12-07 06:29] LABS: ALB/GLOB RATIO 1.5 (1.0-2.1); ALBUMIN 4.1 g/dL (3.5-5.0); ALT/SGPT 26 U/L (21-72); AST/SGOT 24 U/L (17-59); BLOOD UREA NITROGEN 20 mg/dl (9-20); CALCIUM 9.1 mg/dL (8.4-10.2); GFR NON-AFRICAN AMERICAN > 60
[2018-12-07] MEDS ORDERED: Enoxaparin 40 mg Syringe SC SCH (09:00)
--- NOTE | 2018-12-07 09:44 | CP.PCM.PN ---
<Td Norris - Last Filed: 12/07/18 09:53> Subjective - Date & Time of Evaluation Date of Evaluation: 12/07/18 Time of Evaluation: 07:55 - Subjective Subjective: Seen at bedside this morning sleeping in bed. No acute distress. No significant events overnight other than persistent mild hematuria on bhatia bag. Denies abd pain, CP, vomiting, nausea. SOB improved. VS stable but hr increases with exertion. Tolerating PO. Objective - Vital Signs/Intake and Output Vital Signs (last 24 hours): Temp Pulse Resp BP Pulse Ox 98.2 F 78 20 133/81 97 12/07/18 08:50 12/07/18 08:50 12/07/18 08:50 12/07/18 08:50 12/07/18 08:50 Intake and Output: 12/07/18 12/07/18 06:59 18:59 Intake Total 420 Output Total 1200 Balance -780 - Medications Medications: Current Medications Albuterol Sulfate (Albuterol 0.083% Inhal Hawa (2.5 Mg/3 Ml) Ud) 2.5 mg IH Q6H PRN PRN Reason: Shortness of Breath Aspirin (Aspirin Chewable) 81 mg PO DAILY [facility] Last Admin: 12/07/18 08:41 Dose: 81 mg Carvedilol (Coreg) 6.25 mg PO Q12 [facility] Last Admin: 12/07/18 08:42 Dose: 6.25 mg Clopidogrel Bisulfate (Plavix) 75 mg PO DAILY [facility] Last Admin: 12/07/18 08:43 Dose: 75 mg Furosemide (Lasix) 40 mg IVP Q12H [facility] Last Admin: 12/07/18 08:42 Dose: 40 mg Tamsulosin HCl (Flomax) 0.4 mg PO DAILY [facility] Last Admin: 12/07/18 08:42 Dose: 0.4 mg - Labs Labs: 12/06/18 06:14 12/07/18 04:25 PT 13.1 Seconds (9.8-13.1) 12/06/18 16:37 INR 1.2 12/06/18 16:37 APTT 43.1 Seconds (25.6-37.1) H 12/07/18 04:25 - Constitutional Appears: Non-toxic, Chronically Ill - Eye Exam Eye Exam: EOMI, PERRL - ENT Exam ENT Exam: Mucous Membranes Moist - Respiratory Exam Respiratory Exam: Rales (BB), NORMAL BREATHING PATTERN. absent: Decreased Breath Sounds, Respiratory Distress - Cardiovascular Exam Cardiovascular Exam: Irregular Rhythm, +S1, +S2. absent: Gallop - GI/Abdominal Exam GI & Abdominal Exam: Soft, Normal Bowel Sounds. absent: Tenderness - Extremities Exam Extremities Exam: absent: Calf Tenderness, Pedal Edema - Neurological Exam Neurological Exam: Alert, Awake, Oriented x3 - Skin Skin Exam: Warm Assessment and Plan - Assessment and Plan (Free Text) Assessment: Pt is a 78 yo M with hx of recent PCI 5 stents placed at [place] 1 mo ago, A fib, BPH, HTN presented to the ED with SOB, fatigue, feeling off, weakness and blurry vision admitted for CHF exacerbation. CHF exacerbation with suspected NSTEMI acute, severe Improved Output C/w Lasix 40mg IV Q 12h Troponin x5 negative: initially trended up but WNL today trending down again Patient had episode of severe SOB, agitation, restlessness, vomiting after admission and EKG was performed that showed A Fib and T waves, ST abnormalities yesterday. He was given extra 40 mg lasix IV, SL nitro and started on Heparin drip after initial bolus. He then started developing mild hematuria at night but with significantly improved clinical status since then. Heparin drip was continued at 10 ml/hr(dose was not increase and no extra bolus was given due to hematuria). This AM hematuria continued and mild since trops trended down, heparin drip was DCed. C/w Coreg q12h C/w Plavix and ASA Monitor VS Hematuria Mild/Acute Likely Heparin SE Heparin stpped. Asymptomatic Monitor BPH chronic bhatia status c/w Tamsulosin 0.4mg QD Diet Heart healthy DVT PPx S/P Haparin drip Restart prophylactic anticoag tomorrow if patient still in hosp <Debbie Mtz - Last Filed: 12/09/18 12:23> Objective - Vital Signs/Intake and Output Vital Signs (last 24 hours): Temp Pulse Resp BP Pulse Ox 98.8 F 96 H 18 114/76 96 12/09/18 08:03 12/09/18 09:00 12/09/18 08:03 12/09/18 09:00 12/09/18 08:03 Intake and Output: 12/09/18 12/09/18 06:59 18:59 Intake Total 1000 Output Total 800 Balance 200 - Medications Medications: Current Medications Albuterol Sulfate (Albuterol 0.083% Inhal Hawa (2.5 Mg/3 Ml) Ud) 2.5 mg IH Q6H PRN PRN Reason: Shortness of Breath Aspirin (Aspirin Chewable) 81 mg PO DAILY [facility] Last Admin: 12/09/18 08:59 Dose: Not Given Carvedilol (Coreg) 25 mg PO Q12 [facility] Last Admin: 12/09/18 09:00 Dose: 25 mg Clopidogrel Bisulfate (Plavix) 75 mg PO DAILY [facility] Last Admin: 12/09/18 09:00 Dose: 75 mg Finasteride (Proscar) 5 mg PO DAILY [facility] Last Admin: 12/09/18 09:00 Dose: 5 mg Lisinopril (Zestril) 5 mg PO DAILY [facility] Last Admin: 12/09/18 09:00 Dose: 5 mg Spironolactone (Aldactone) 25 mg PO DAILY [facility] Last Admin: 12/09/18 09:00 Dose: 25 mg Tamsulosin HCl (Flomax) 0.4 mg PO DAILY [facility] Last Admin: 12/09/18 08:59 Dose: 0.4 mg - Labs Labs: 12/09/18 05:18 12/09/18 05:18 PT 13.2 Seconds (9.8-13.1) H 12/09/18 05:18 INR 1.2 12/09/18 05:18 APTT 30.0 Seconds (25.6-37.1) 12/09/18 05:18 Attending/Attestation - Attestation I have personally seen and examined this patient.: Yes I have fully participated in the care of the patient.: Yes I have reviewed all pertinent clinical information, including history, physical exam and plan: Yes Notes (Text): 12/09/18 10:16 agree with findings and plan as above. patient continues to have elevated HR with standing, will optimize medications. hd stable, nad.
[2018-12-07 10:21] LABS: HEMOGLOBIN 13.5 g/dL (12.0-18.0); MEAN CELL VOLUME 84.7 fl (80.0-94.0); MEAN CORPUSCULAR HEMOGLOBIN 28.5 pg (27.0-31.0); MEAN CORPUSCULAR HGB CONC 33.6 g/dL (33.0-37.0); RBC 4.74 Mil/uL (4.40-5.90); WHITE BLOOD COUNT 9.2 K/uL (4.8-10.8)
[2018-12-07 10:32] LABS: BLOOD UREA NITROGEN 21 mg/dl (9-20); CALCIUM 9.3 mg/dL (8.4-10.2); GFR NON-AFRICAN AMERICAN > 60
[2018-12-08 06:35] LABS: HEMOGLOBIN 13.8 g/dL (12.0-18.0); MEAN CELL VOLUME 83.5 fl (80.0-94.0); MEAN CORPUSCULAR HEMOGLOBIN 28.5 pg (27.0-31.0); MEAN CORPUSCULAR HGB CONC 34.2 g/dL (33.0-37.0); RBC 4.84 Mil/uL (4.40-5.90); RED CELL DISTRIBUTION WIDTH 14.8 % (11.5-14.5); WHITE BLOOD COUNT 7.6 K/uL (4.8-10.8)
[2018-12-08 06:40] LABS: BLOOD UREA NITROGEN 24 mg/dl (9-20); CALCIUM 9.2 mg/dL (8.4-10.2); GFR NON-AFRICAN AMERICAN > 60
--- NOTE | 2018-12-08 07:39 | CP.PCM.PN ---
<DequanarthurBelinda - Last Filed: 12/08/18 16:17> Subjective - Date & Time of Evaluation Date of Evaluation: 12/08/18 Time of Evaluation: 16:17 - Subjective Subjective: Seen at bedside this morning. HR was elevated upon standing overnight in 180's, pts coreg was increased to 12.5mg BID. Improving hematuria in bhatia bag. Denies chest pain, SOB, N/V/D/C. Tolerating PO. Objective - Vital Signs/Intake and Output Vital Signs (last 24 hours): Temp Pulse Resp BP Pulse Ox 98.9 F 89 18 146/85 95 12/08/18 04:35 12/08/18 04:35 12/08/18 04:35 12/08/18 04:35 12/08/18 04:35 Intake and Output: 12/08/18 12/08/18 06:59 18:59 Intake Total 400 Output Total 1500 Balance -1100 - Medications Medications: Current Medications Albuterol Sulfate (Albuterol 0.083% Inhal Hawa (2.5 Mg/3 Ml) Ud) 2.5 mg IH Q6H PRN PRN Reason: Shortness of Breath Aspirin (Aspirin Chewable) 81 mg PO DAILY [facility] Last Admin: 12/07/18 08:41 Dose: 81 mg Carvedilol (Coreg) 12.5 mg PO Q12 [facility] Last Admin: 12/07/18 21:56 Dose: 12.5 mg Furosemide (Lasix) 40 mg IVP Q12H [facility] Last Admin: 12/07/18 21:57 Dose: 40 mg Tamsulosin HCl (Flomax) 0.4 mg PO DAILY [facility] Last Admin: 12/07/18 08:42 Dose: 0.4 mg - Labs Labs: 12/08/18 04:30 12/08/18 04:30 PT 13.1 Seconds (9.8-13.1) 12/06/18 16:37 INR 1.2 12/06/18 16:37 APTT 43.1 Seconds (25.6-37.1) H 12/07/18 04:25 - Constitutional Appears: Non-toxic, No Acute Distress - Head Exam Head Exam: NORMAL INSPECTION - Eye Exam Eye Exam: EOMI - ENT Exam ENT Exam: Mucous Membranes Moist - Respiratory Exam Respiratory Exam: Clear to Ausculation Bilateral. absent: Rales, Rhonchi, Wheezes - Cardiovascular Exam Cardiovascular Exam: Tachycardia, +S1, +S2 - GI/Abdominal Exam GI & Abdominal Exam: Soft, Normal Bowel Sounds. absent: Tenderness - Extremities Exam Extremities Exam: absent: Pedal Edema - Neurological Exam Neurological Exam: Alert, Awake, Oriented x3 Assessment and Plan - Assessment and Plan (Free Text) Assessment: Pt is a 78 yo M with hx of recent PCI 5 stents placed at [place] 1 mo ago, A fib, BPH, HTN presented to the ED with SOB, fatigue, feeling off, weakness and blurry vision admitted for CHF exacerbation. CHF exacerbation with suspected NSTEMI acute, improved C/w Lasix 40mg IV Q 12h, Spironolactone 15mg Daily Troponin x5 negative: initially trended up but WNL today trending down again Patient had episode of severe SOB, agitation, restlessness, vomiting after admission and EKG was performed that showed A Fib and T waves, ST abnormalities 2 days ago. He was given extra 40 mg lasix IV, SL nitro and started on Heparin drip after initial bolus. He then started developing mild hematuria at night but with significantly improved clinical status since then. Heparin drip was continued at 10 ml/hr(dose was not increase and no extra bolus was given due to hematuria).heparin drip was then DCed. This AM hematuria continued but improved Cardiology consulted- Dr. Moreno will see pt in AM C/w Coreg q12h C/w Plavix and ASA Monitor VS Hematuria Mild/Acute Likely Heparin SE Heparin stopped. Asymptomatic bladder training today Monitor coags in AM Hyponatremia acute on chronic Na 128 F/u urine electrolytes, osmolality and BMP in AM BPH chronic bladder training today c/w Finasteride and Tamsulosin 0.4mg QD Diet Heart healthy DVT PPx S/P Heparin drip plavix <Monse Miller - Last Filed: 12/08/18 17:47> Objective - Vital Signs/Intake and Output Vital Signs (last 24 hours): Temp Pulse Resp BP Pulse Ox 98.2 F 90 18 97/60 L 98 12/08/18 16:44 12/08/18 16:44 12/08/18 16:44 12/08/18 16:44 12/08/18 16:44 Intake and Output: 04/21/19 04/21/19 06:59 18:59 Intake Total 400 Output Total 1500 Balance -1100 - Medications Medications: Current Medications Albuterol Sulfate (Albuterol 0.083% Inhal Hawa (2.5 Mg/3 Ml) Ud) 2.5 mg IH Q6H PRN PRN Reason: Shortness of Breath Aspirin (Aspirin Chewable) 81 mg PO DAILY [facility] Last Admin: 12/07/18 08:41 Dose: 81 mg Carvedilol (Coreg) 25 mg PO Q12 [facility] Clopidogrel Bisulfate (Plavix) 75 mg PO DAILY [facility] Last Admin: 12/08/18 08:51 Dose: 75 mg Finasteride (Proscar) 5 mg PO DAILY [facility] Last Admin: 12/08/18 10:13 Dose: 5 mg Furosemide (Lasix) 40 mg IVP DAILY [facility] Last Admin: 12/08/18 08:47 Dose: 40 mg Lisinopril (Zestril) 5 mg PO DAILY [facility] Last Admin: 12/08/18 10:13 Dose: 5 mg Spironolactone (Aldactone) 25 mg PO DAILY [facility] Last Admin: 12/08/18 10:13 Dose: 25 mg Tamsulosin HCl (Flomax) 0.4 mg PO DAILY [facility] Last Admin: 12/08/18 08:47 Dose: 0.4 mg - Labs Labs: 12/08/18 04:30 12/08/18 04:30 PT 13.1 Seconds (9.8-13.1) 12/06/18 16:37 INR 1.2 12/06/18 16:37 APTT 43.1 Seconds (25.6-37.1) H 12/07/18 04:25 Attending/Attestation - Attestation I have personally seen and examined this patient.: Yes I have fully participated in the care of the patient.: Yes I have reviewed all pertinent clinical information, including history, physical exam and plan: Yes Notes (Text): CAD ? 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
[2018-12-09 05:34] LABS: INR 1.2; PROTHROMBIN TIME 13.2 Seconds (9.8-13.1)
[2018-12-09 05:41] LABS: BASO % 0.3 % (0.0-2.0); EOS # 0.1 K/uL (0.0-0.7); EOS % 0.9 % (0.0-4.0); HEMOGLOBIN 13.7 g/dL (12.0-18.0); LYMPH # 1.4 K/uL (1.0-4.3); LYMPH % 20.5 % (20.0-40.0); MEAN CORPUSCULAR HEMOGLOBIN 28.1 pg (27.0-31.0); MEAN CORPUSCULAR HGB CONC 33.5 g/dL (33.0-37.0); MEAN PLATELET VOLUME 8.1 fl (7.2-11.7); MONO # 0.7 K/uL (0.0-0.8); NEUT # 4.6 K/uL (1.8-7.0); NEUT % 68.3 % (50.0-75.0); NRBC % 0.1 % (0.0-0.0); RBC 4.87 Mil/uL (4.40-5.90); RED CELL DISTRIBUTION WIDTH 14.5 % (11.5-14.5); WHITE BLOOD COUNT 6.8 K/uL (4.8-10.8)
[2018-12-09 06:03] LABS: BLOOD UREA NITROGEN 27 mg/dl (9-20); CALCIUM 9.1 mg/dL (8.4-10.2); GFR NON-AFRICAN AMERICAN > 60
--- NOTE | 2018-12-09 08:17 | CP.PCM.PN ---
<Belinda Meza - Last Filed: 12/09/18 11:01> Subjective - Date & Time of Evaluation Date of Evaluation: 12/09/18 Time of Evaluation: 11:01 - Subjective Subjective: Pt seen at bedside this AM. HR in 90's overnight, pts coreg was increased to 25mg BID. Improving hematuria in bhatia bag 150cc light red urine. Denies chest pain, SOB, N/V/D/C. Tolerating PO intake. Objective - Vital Signs/Intake and Output Vital Signs (last 24 hours): Temp Pulse Resp BP Pulse Ox 98.8 F 89 18 114/76 96 12/09/18 08:03 12/09/18 08:03 12/09/18 08:03 12/09/18 08:03 12/09/18 08:03 Intake and Output: 12/09/18 12/09/18 06:59 18:59 Intake Total 1000 Output Total 800 Balance 200 - Medications Medications: Current Medications Albuterol Sulfate (Albuterol 0.083% Inhal Hawa (2.5 Mg/3 Ml) Ud) 2.5 mg IH Q6H PRN PRN Reason: Shortness of Breath Aspirin (Aspirin Chewable) 81 mg PO DAILY [facility] Last Admin: 12/07/18 08:41 Dose: 81 mg Carvedilol (Coreg) 25 mg PO Q12 [facility] Last Admin: 12/08/18 21:34 Dose: 25 mg Clopidogrel Bisulfate (Plavix) 75 mg PO DAILY [facility] Last Admin: 12/08/18 08:51 Dose: 75 mg Finasteride (Proscar) 5 mg PO DAILY [facility] Last Admin: 12/08/18 10:13 Dose: 5 mg Lisinopril (Zestril) 5 mg PO DAILY [facility] Last Admin: 12/08/18 10:13 Dose: 5 mg Spironolactone (Aldactone) 25 mg PO DAILY [facility] Last Admin: 12/08/18 10:13 Dose: 25 mg Tamsulosin HCl (Flomax) 0.4 mg PO DAILY [facility] Last Admin: 12/08/18 08:47 Dose: 0.4 mg - Labs Labs: 12/09/18 05:18 12/09/18 05:18 PT 13.2 Seconds (9.8-13.1) H 12/09/18 05:18 INR 1.2 12/09/18 05:18 APTT 30.0 Seconds (25.6-37.1) 12/09/18 05:18 - Constitutional Appears: Non-toxic, No Acute Distress - Eye Exam Eye Exam: EOMI - ENT Exam ENT Exam: Mucous Membranes Moist - Respiratory Exam Respiratory Exam: Clear to Ausculation Bilateral. absent: Rales, Rhonchi, Wheezes - Cardiovascular Exam Cardiovascular Exam: Irregular Rhythm, +S1, +S2 - GI/Abdominal Exam GI & Abdominal Exam: Soft, Normal Bowel Sounds. absent: Tenderness - Extremities Exam Extremities Exam: absent: Pedal Edema Assessment and Plan - Assessment and Plan (Free Text) Assessment: Pt is a 78 yo M with hx of recent PCI 5 stents placed at [place] 1 mo ago, A fib, BPH, HTN presented to the ED with SOB, fatigue, feeling off, weakness and blurry vision admitted for CHF exacerbation. CHF exacerbation with suspected NSTEMI acute, improved C/w Spironolactone 15mg Daily Troponin x5 negative Patient had episode of severe SOB, agitation, restlessness, vomiting after admission and EKG was performed that showed A Fib and T waves, ST abnormalities 3 days ago. He was given extra 40 mg lasix IV, SL nitro and started on Heparin drip after initial bolus.He then started developing mild hematuria at night but with significantly improved clinical status since then. Heparin drip was continued at 10 ml/hr(dose was not increase and no extra bolus was given due to hematuria).heparin drip was then DCed.This AM hematuria continueds to improve. Cardiology consulted- Dr. Moreno will see pt today- f/u reccs C/w Coreg 25mg q12h, Lisinopril 5mg QD C/w Plavix and ASA Monitor VS Hematuria Mild/Acute Likely Heparin SE Heparin stopped. Asymptomatic bladder training today Hold Xarelto until hematuria resolves then restart Monitor coags in AM Hyponatremia acute on chronic, worsening Na 126 D/C lasix today F/u BMP in AM BPH chronic bladder training today c/w Finasteride and Tamsulosin 0.4mg QD Diet Heart healthy DVT PPx S/P Heparin drip plavix <Debbie Mtz - Last Filed: 12/09/18 11:45> Objective - Vital Signs/Intake and Output Vital Signs (last 24 hours): Temp Pulse Resp BP Pulse Ox 98.8 F 73 18 116/72 98 12/09/18 08:03 12/09/18 10:58 12/09/18 08:03 12/09/18 10:58 12/09/18 10:58 Intake and Output: 12/09/18 12/09/18 06:59 18:59 Intake Total 1000 Output Total 800 Balance 200 - Medications Medications: Current Medications Albuterol Sulfate (Albuterol 0.083% Inhal Hawa (2.5 Mg/3 Ml) Ud) 2.5 mg IH Q6H PRN PRN Reason: Shortness of Breath Aspirin (Aspirin Chewable) 81 mg PO DAILY [facility] Last Admin: 12/09/18 08:59 Dose: Not Given Carvedilol (Coreg) 25 mg PO Q12 [facility] Last Admin: 12/09/18 09:00 Dose: 25 mg Clopidogrel Bisulfate (Plavix) 75 mg PO DAILY [facility] Last Admin: 12/09/18 09:00 Dose: 75 mg Finasteride (Proscar) 5 mg PO DAILY [facility] Last Admin: 12/09/18 09:00 Dose: 5 mg Lisinopril (Zestril) 5 mg PO DAILY [facility] Last Admin: 12/09/18 09:00 Dose: 5 mg Spironolactone (Aldactone) 25 mg PO DAILY [facility] Last Admin: 12/09/18 09:00 Dose: 25 mg Tamsulosin HCl (Flomax) 0.4 mg PO DAILY [facility] Last Admin: 12/09/18 08:59 Dose: 0.4 mg - Labs Labs: 12/09/18 05:18 12/09/18 05:18 PT 13.2 Seconds (9.8-13.1) H 12/09/18 05:18 INR 1.2 12/09/18 05:18 APTT 30.0 Seconds (25.6-37.1) 12/09/18 05:18 Attending/Attestation - Attestation I have personally seen and examined this patient.: Yes I have fully participated in the care of the patient.: Yes I have reviewed all pertinent clinical information, including history, physical exam and plan: Yes Notes (Text): 12/09/18 11:44 agree with findings and plan as above +hematuria, resume xarelto when hematuria resolves bladder training needs better HR control, continues to get tachycardic with exertion
--- NOTE | 2018-12-09 09:53 | CP.PCM.CON ---
History of Present Illness - History of Present Illness History of Present Illness: Palliative Care Consult requested by Dr. Miller Patient is a 78 year old male who presented to the ED on 12/06 with complaints of SOB and fatigue. When evaluated by EMS , he was place on 4L nasal cannula and given nitro. Patient unsure when symptoms started. As per daughter, patient had heart surgery at [place] 1 month ago. Patient was admitted for CHF exacerbation PMH: Afib, BPH, HtN, PCI, nephrolithiasis, colonic polyps Soc hx: former smoker, denies etoh or drug abuse Family hx: Father had Heart disease, Mother from [place] Review of Systems - Review of Systems Review of Systems: ROS obtained from patient in bed - Constitutional Constitutional: Fatigue, Weakness - Respiratory Respiratory: Dyspnea on Exertion - Genitourinary Genitourinary: Hematuria Past Patient History - Infectious Disease Hx of Infectious Diseases: None - Tetanus Immunizations Tetanus Immunization: Up to Date - Past Medical History & Family History Past Medical History?: Yes - Past Social History Smoking Status: Never Smoked - CARDIAC Hx Angina: No Hx Atrial Fibrillation: Yes Hx Cardia Arrhythmia: No Hx Circulatory Problems: No Hx Congestive Heart Failure: No Hx Heart Attack: No Hx Heart Murmur: No Hx Heart Transplant: No Hx Hypercholesterolemia: No Hx Hypertension: Yes Hx Hypotension: No Hx Internal Defibrillator: No Hx Mitral Valve Prolapse: No Hx Pacemaker: No Hx Peripheral Edema: No Hx Peripheral Vascular Disease: No - PULMONARY Hx Respiratory Disorders: No - NEUROLOGICAL Hx Neurological Disorder: No - HEENT Hx HEENT Problems: No - RENAL Hx Chronic Kidney Disease: No - ENDOCRINE/METABOLIC Hx Endocrine Disorders: No - HEMATOLOGICAL/ONCOLOGICAL Hx Blood Disorders: No Hx AIDS: No Hx Human Immunodeficiency Virus (HIV): No - INTEGUMENTARY Hx Dermatological Problems: No - MUSCULOSKELETAL/RHEUMATOLOGICAL Hx Musculoskeletal Disorders: No Hx Arthritis: No Hx Back Pain: No Hx Degenerative Joint Disease: No Hx Falls: No Hx Fractures: No Hx Gout: No Hx Herniated Disk: Yes Hx Myasthenia Gravis: No Hx Osteoarthritis: No Hx Osteomyelitis: No Hx Osteoporosis: No Hx Rhabdomyolysis: No Hx Rheumatoid Arthritis: No Hx Spinal Stenosis: No Hx Unsteady Gait: No - GASTROINTESTINAL Hx Gastrointestinal Disorders: No Hx Bowel Surgery: No - GENITOURINARY/GYNECOLOGICAL Hx Genitourinary Disorders: Yes Hx Bladder Cancer: No Hx Bladder Stone: Yes (kidney stones) Hx Hematuria: No Hx Incontinence: No Hx Prostate Cancer: No Hx Prostate Problems: Yes (BPH) Hx Reproductive Disorders: No Hx Sexually Transmitted Disorders: No Hx Urinary Tract Infection: No - PSYCHIATRIC Hx Psychophysiologic Disorder: No Hx Emotional Abuse: No Hx Physical Abuse: No Hx Substance Use: No - SURGICAL HISTORY Hx Abdominal Aortic Aneurysm Repair: No Hx Amputation: No Hx Angiogram: No Hx Angioplasty: No Hx Appendectomy: No Hx Arteriovenous Shunt: No Hx Arthroscopy: No Hx Bile Duct Stent: No Hx Breast Biopsy: No Hx Cataract Extraction: No Hx Cardiac Catheterization: No Hx Carotid Endarterectomy: No Hx Section: No Hx Cholecystectomy: No Hx Coronary Artery Bypass Graft: No Hx Coronary Stent: No Hx Dilation and Curettage: No Hx Eye Surgery: No Hx Femoral-Popliteal Bypass Graft: No Hx Gastric Bypass Surgery: No Hx Herniorrhaphy: Yes Hx Hysterectomy: No Hx Joint Replacement: No Hx Kidney Transplant: No Hx Liver Transplant: No Hx Tonsillectomy: No - ANESTHESIA Hx Anesthesia: Yes Hx Anesthesia Reactions: No Hx Malignant Hyperthermia: No Meds Allergies/Adverse Reactions: Allergies Allergy/AdvReac Type Severity Reaction Status Date / Time No Known Allergies Allergy Verified 12/06/18 05:20 - Medications Medications: Current Medications Albuterol Sulfate (Albuterol 0.083% Inhal Hawa (2.5 Mg/3 Ml) Ud) 2.5 mg IH Q6H PRN PRN Reason: Shortness of Breath Aspirin (Aspirin Chewable) 81 mg PO DAILY [facility] Last Admin: 12/09/18 08:59 Dose: Not Given Carvedilol (Coreg) 25 mg PO Q12 [facility] Last Admin: 12/09/18 09:00 Dose: 25 mg Clopidogrel Bisulfate (Plavix) 75 mg PO DAILY [facility] Last Admin: 12/09/18 09:00 Dose: 75 mg Finasteride (Proscar) 5 mg PO DAILY [facility] Last Admin: 12/09/18 09:00 Dose: 5 mg Lisinopril (Zestril) 5 mg PO DAILY [facility] Last Admin: 12/09/18 09:00 Dose: 5 mg Spironolactone (Aldactone) 25 mg PO DAILY [facility] Last Admin: 12/09/18 09:00 Dose: 25 mg Tamsulosin HCl (Flomax) 0.4 mg PO DAILY [facility] Last Admin: 12/09/18 08:59 Dose: 0.4 mg Physical Exam - Constitutional Appears: No Acute Distress - Head Exam Head Exam: ATRAUMATIC, NORMAL INSPECTION, NORMOCEPHALIC - Eye Exam Eye Exam: Normal appearance, PERRL - ENT Exam ENT Exam: Mucous Membranes Moist - Neck Exam Neck exam: Positive for: Normal Inspection - Respiratory Exam Respiratory Exam: Decreased Breath Sounds Additional comments: currently on Room air - GI/Abdominal Exam GI & Abdominal Exam: Normal Bowel Sounds - Rectal Exam Rectal Exam: Deferred - Exam Additional comments: Has bhatia catheter, hematuria in bhatia bag - Extremities Exam Extremities exam: Positive for: pedal pulses present - Neurological Exam Neurological exam: Alert, Oriented x3 - Psychiatric Exam Psychiatric exam: Anxious - Skin Skin Exam: Pallor, Warm Results - Vital Signs Recent Vital Signs: Last Vital Signs Temp 98.8 F 12/09/18 08:03 Pulse 96 H 12/09/18 09:00 Resp 18 12/09/18 08:03 BP 114/76 12/09/18 09:00 Pulse Ox 96 12/09/18 08:03 - Labs Result Diagrams: 12/09/18 05:18 12/09/18 05:18 Labs: Laboratory Results - last 24 hr 12/08/18 12/09/18 12/09/18 22:00 05:18 05:18 WBC 6.8 RBC 4.87 Hgb 13.7 Hct 40.9 MCV 84.0 MCH 28.1 MCHC 33.5 RDW 14.5 Plt Count 187 MPV 8.1 Neut % (Auto) 68.3 Lymph % (Auto) 20.5 [place] % (Auto) 10.0 Eos % (Auto) 0.9 Baso % (Auto) 0.3 Neut # (Auto) 4.6 Lymph # (Auto) 1.4 [place] # (Auto) 0.7 Eos # (Auto) 0.1 Baso # (Auto) 0.0 PT 13.2 H INR 1.2 APTT 30.0 Sodium Potassium Chloride Carbon Dioxide Anion Gap BUN Creatinine Est GFR ( Amer) Est GFR (Non-Af Amer) Random Glucose Calcium Urine Osmolality 529 Ur Random Sodium 14 Ur Random Potassium 67.5 12/09/18 05:18 WBC RBC Hgb Hct MCV MCH MCHC RDW Plt Count MPV Neut % (Auto) Lymph % (Auto) [place] % (Auto) Eos % (Auto) Baso % (Auto) Neut # (Auto) Lymph # (Auto) [place] # (Auto) Eos # (Auto) Baso # (Auto) PT INR APTT Sodium 126 L Potassium 3.7 Chloride 84 L Carbon Dioxide 34 H Anion Gap 12 BUN 27 H Creatinine 0.8 Est GFR ( Amer) > 60 Est GFR (Non-Af Amer) > 60 Random Glucose 110 Calcium 9.1 Urine Osmolality Ur Random Sodium Ur Random Potassium Assessment & Plan - Assessment and Plan (Free Text) Assessment: Full Code, patient does not have advanced directive in the chart Palliative Performance Scale 60% I reviewed Medical records, diagnostic tests, examined and interviewed patient at the bed side Examined patient in bed, he is aaox3, no acute distress, no complaints of pain at this time. He states that he is anxious about being in the hospital and wants to get better to go home Goals of Care: discussed with the patient. Conversation regarding his Goals of care in managing his illnesses including the use of life sustaining measures discussed with the patient. He states that he has an advanced directive at home and is ok with the language on that document and will bring it next time he is hospitalized. He states that he understands the signs of symptoms of CHF exacerbation and when to call his doctor or call for an ambulance. He says that he lives alone and is able to care for himself with no help. He states that he would like to get stronger so he can go home. He would like symptoms to be managed well enough so that he can continue to live independently. He states that he has a lot of things to take care of at home and hopes to be discharged soon. Code Status: Discussed with patient. He would like to continue being full code. He states that only if his situation is terminal or irreversible he would not want to be kept alive on vent. Impression CHF exacerbation Decreased Mobility Dyspnea Suggestion Physical Therapy Eval Assist when ambulating,with ADLs and repositioning Keep head of bed elevated, O2 via nc as ordered Thank You for this consult Advance care planning 40 min
[2018-12-10 06:05] LABS: BLOOD UREA NITROGEN 24 mg/dl (9-20); CALCIUM 8.6 mg/dL (8.4-10.2); GFR NON-AFRICAN AMERICAN > 60
[2018-12-10 06:07] LABS: INR 1.2; PROTHROMBIN TIME 13.5 Seconds (9.8-13.1)
[2018-12-10 06:09] LABS: PARTIAL THROMBOPLASTIN TIME 29.1 Seconds (25.6-37.1)
--- NOTE | 2018-12-10 11:10 | CP.PCM.PN ---
<Radha Mezaekah - Last Filed: 12/10/18 14:21> Subjective - Date & Time of Evaluation Date of Evaluation: 12/10/18 Time of Evaluation: 14:21 - Subjective Subjective: Pt seen at bedside this AM. Feeling well, reports headache. Urinating xander colored urine. HR in 80-90's overnight. Tolerating PO intake. Ambulating with PT. Denies chest pain, SOB, N/V/D/C. Objective - Vital Signs/Intake and Output Vital Signs (last 24 hours): Temp Pulse Resp BP Pulse Ox 98.6 F 67 18 116/60 95 12/10/18 08:05 12/10/18 09:31 12/10/18 08:05 12/10/18 09:31 12/10/18 08:05 Intake and Output: 12/10/18 12/10/18 06:59 18:59 Intake Total 600 Output Total 900 Balance -300 - Medications Medications: Current Medications Albuterol Sulfate (Albuterol 0.083% Inhal Hawa (2.5 Mg/3 Ml) Ud) 2.5 mg IH Q6H PRN PRN Reason: Shortness of Breath Aspirin (Aspirin Chewable) 81 mg PO DAILY [facility] Last Admin: 12/10/18 09:29 Dose: 81 mg Carvedilol (Coreg) 25 mg PO Q12 [facility] Last Admin: 12/10/18 09:30 Dose: 25 mg Clopidogrel Bisulfate (Plavix) 75 mg PO DAILY [facility] Last Admin: 12/10/18 09:30 Dose: 75 mg Finasteride (Proscar) 5 mg PO DAILY [facility] Last Admin: 12/10/18 09:30 Dose: 5 mg Lisinopril (Zestril) 5 mg PO DAILY [facility] Last Admin: 12/10/18 09:31 Dose: 5 mg Spironolactone (Aldactone) 12.5 mg PO DAILY [facility] Last Admin: 12/10/18 09:29 Dose: 12.5 mg Tamsulosin HCl (Flomax) 0.4 mg PO DAILY [facility] Last Admin: 12/10/18 09:30 Dose: 0.4 mg - Labs Labs: 12/09/18 05:18 12/10/18 05:00 PT 13.5 Seconds (9.8-13.1) H 12/10/18 05:00 INR 1.2 12/10/18 05:00 APTT 29.1 Seconds (25.6-37.1) 12/10/18 05:00 - Constitutional Appears: Non-toxic, No Acute Distress - ENT Exam ENT Exam: Mucous Membranes Moist - Respiratory Exam Respiratory Exam: Clear to Ausculation Bilateral. absent: Rales, Rhonchi, Wheezes - Cardiovascular Exam Cardiovascular Exam: RRR, +S1, +S2 - GI/Abdominal Exam GI & Abdominal Exam: Soft, Normal Bowel Sounds. absent: Tenderness - Extremities Exam Extremities Exam: Normal Inspection. absent: Pedal Edema - Neurological Exam Neurological Exam: Alert, Awake, Oriented x3 Assessment and Plan - Assessment and Plan (Free Text) Assessment: Pt is a 78 yo M with hx of recent PCI 5 stents placed at [place] 1 mo ago, A fib, BPH, HTN presented to the ED with SOB, fatigue, feeling off, weakness and blurry vision admitted for CHF exacerbation. CHF exacerbation with suspected NSTEMI acute, improved Troponin x5 negative Patient had episode of severe SOB, agitation, restlessness, vomiting after admission and EKG was performed that showed A Fib and T waves, ST abnormalities 3 days ago. He was given extra 40 mg lasix IV, SL nitro and started on Heparin drip after initial bolus.He then started developing mild hematuria at night but with significantly improved clinical status since then. Heparin drip was continued at 10 ml/hr(dose was not increase and no extra bolus was given due to hematuria).heparin drip was then DCed. hematuria continues to improve. Cardiology consulted- Dr. Moreno will see pt today- f/u reccs C/w Coreg 25mg q12h, Lisinopril 5mg QD C/w Plavix and ASA Blood cx no growth @4days PT/OT reccs- home PT with services Monitor VS, I/O's daily weights Hyponatremia acute on chronic, worsening Na 123 today D/C Lasix and Spironolactone Nephrology consulted- Dr. Spaulding-reccs appreciated Started Sodium tablet x1 dose, gentle IVF @30ml/hr Fluid restriction @800ml per day F/u BMP in AM Hematuria Mild, resolving, Likely Heparin SE Heparin stopped. Asymptomatic bladder training, xander urine today Hold Xarelto until hematuria resolves Monitor coags in AM BPH chronic bladder training today c/w Finasteride 5mg QD and Tamsulosin 0.4mg QD Diet Heart healthy DVT PPx S/P Heparin drip Plavix <Monse Miller - Last Filed: 12/10/18 15:15> Objective - Vital Signs/Intake and Output Vital Signs (last 24 hours): Temp Pulse Resp BP Pulse Ox 98.2 F 86 18 109/66 95 12/10/18 13:00 12/10/18 13:00 12/10/18 13:00 12/10/18 13:00 12/10/18 13:00 Intake and Output: 12/10/18 12/10/18 06:59 18:59 Intake Total 600 160 Output Total 900 475 Balance -300 -315 - Medications Medications: Current Medications Albuterol Sulfate (Albuterol 0.083% Inhal Hawa (2.5 Mg/3 Ml) Ud) 2.5 mg IH Q6H PRN PRN Reason: Shortness of Breath Aspirin (Aspirin Chewable) 81 mg PO DAILY [facility] Last Admin: 12/10/18 09:29 Dose: 81 mg Carvedilol (Coreg) 25 mg PO Q12 [facility] Last Admin: 12/10/18 09:30 Dose: 25 mg Clopidogrel Bisulfate (Plavix) 75 mg PO DAILY [facility] Last Admin: 12/10/18 09:30 Dose: 75 mg Finasteride (Proscar) 5 mg PO DAILY [facility] Last Admin: 12/10/18 09:30 Dose: 5 mg Sodium Chloride (Sodium Chloride 0.9%) 1,000 mls @ 30 mls/hr IV .Q24H [facility] Stop: 12/11/18 11:42 Last Admin: 12/10/18 12:43 Dose: 30 mls/hr Lisinopril (Zestril) 5 mg PO DAILY [facility] Last Admin: 12/10/18 09:31 Dose: 5 mg Tamsulosin HCl (Flomax) 0.4 mg PO DAILY [facility] Last Admin: 12/10/18 09:30 Dose: 0.4 mg - Labs Labs: 12/09/18 05:18 12/10/18 05:00 PT 13.5 Seconds (9.8-13.1) H 12/10/18 05:00 INR 1.2 12/10/18 05:00 APTT 29.1 Seconds (25.6-37.1) 12/10/18 05:00 Attending/Attestation - Attestation I have personally seen and examined this patient.: Yes I have fully participated in the care of the patient.: Yes I have reviewed all pertinent clinical information, including history, physical exam and plan: Yes Notes (Text): CAD, Suspected NSTEMI Acute 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% Hyponatremia likely due to the diuretics A Fib, chronic with RVR Hematuria prob due to antiplatelets and Heparin Urinary Retention likely due to Prostatic Enlargement - Troponin negative - d/c Lasix IV, and decrease Aldactone 12.5 mg daily - cont low dose Lisinopril 5 mg daily and Coreg 25 mg q 12 - cont Plavix, cont ASA as hematuria is resolving ( pt has stent in place) - may need to restart Xarelto if hematuria resolves -cont Flomax and Proscar, Urinary retention resolved - Cardio consult- Dr Moreno -Sodium dropped to 123 - Fluid restriction to 800ml - Nephrology consult- discuss with Dr Spaulding need for Vaptan
--- NOTE | 2018-12-10 12:05 | CP.PCM.CON ---
History of Present Illness - History of Present Illness History of Present Illness: This patient who is 78 years of age male I was called to see him for hyponatremia. Patient was admitted with mild shortness of breath initially and the history from the medical record as follow: Patient who was treated with diuretics and Lasix which has been stopped . Pt is a 78 yo M with hx of recent PCI 5 stents placed at [place] 1 mo ago, A fib, BPH, HTN presented to the ED with SOB, fatigue, feeling off, weakness and blurry vision admitted for CHF exacerbation. Pt reports his symptoms have improved since arrival. Currently denies fever, chills, cough, chest pain, SOB, nausea, vomiting, diarrhea, constipation. Pt has a bhatia in place yellow urine output. PMD: [facility] Card: Dr. Moreno PMHx:PCI s/p 5 stents, A fib, BPH, HTN, hyponatremia, nephrolithiasis, colonic polyps Meds: Metoprolol 50mg QD, Xarelto 20mg QD, ASA 81mg QD, Tamsulosin 0.4mg QD, Miralax, Albuterol Allergies:NKDA Surg: Umbilical and ventral hernia repair 2013 Fam Hx: father 58 had hx of heart dz, Mom at 70 [place] Social Hx: Smoked 1-2 cigs/30yrs, denies alcohol or drug use. Review of Systems - Constitutional Constitutional: absent: As Per HPI, Anorexia, Chills, Daytime Sleepiness, Excessive Sweating, Fatigue, Fever, Frequent Falls, Headache, Increased Appetite, Lethargy, Malaise, Night Sweats, Snoring, Sleep Apnea, Weight Gain, Weight Loss, Weakness, Other - EENT Eyes: absent: Exophthalmos, Pain Ears: absent: Tinnitus Nose/Mouth/Throat: absent: Epistaxis, Post Nasal Drip - Cardiovascular Cardiovascular: absent: Chest Pain, Dyspnea, Edema, Leg Edema, Orthopnea, Pedal Edema - Respiratory Respiratory: absent: Cough, Dyspnea, Hemoptysis, Chest Congestion - Gastrointestinal Gastrointestinal: absent: Coffee Ground Emesis - Genitourinary Genitourinary: absent: As Per HPI, Dysuria, Nocturia - Musculoskeletal Musculoskeletal: absent: As Per HPI, Atrophy - Integumentary Integumentary: absent: Acne - Neurological Neurological: absent: Confusion, Memory Loss, Paresthesias - Psychiatric Psychiatric: absent: Anxiety - Endocrine Endocrine: absent: Fatigue, Heat Intolorance - Hematologic/Lymphatic Hematologic: absent: Easy Bleeding Past Patient History - Infectious Disease Hx of Infectious Diseases: None - Tetanus Immunizations Tetanus Immunization: Up to Date - Past Medical History & Family History Past Medical History?: Yes - Past Social History Smoking Status: Never Smoked - CARDIAC Hx Angina: No Hx Atrial Fibrillation: Yes Hx Cardia Arrhythmia: No Hx Circulatory Problems: No Hx Congestive Heart Failure: No Hx Heart Attack: No Hx Heart Murmur: No Hx Heart Transplant: No Hx Hypercholesterolemia: No Hx Hypertension: Yes Hx Hypotension: No Hx Internal Defibrillator: No Hx Mitral Valve Prolapse: No Hx Pacemaker: No Hx Peripheral Edema: No Hx Peripheral Vascular Disease: No - PULMONARY Hx Respiratory Disorders: No - NEUROLOGICAL Hx Neurological Disorder: No - HEENT Hx HEENT Problems: No - RENAL Hx Chronic Kidney Disease: No - ENDOCRINE/METABOLIC Hx Endocrine Disorders: No - HEMATOLOGICAL/ONCOLOGICAL Hx Blood Disorders: No Hx AIDS: No Hx Human Immunodeficiency Virus (HIV): No - INTEGUMENTARY Hx Dermatological Problems: No - MUSCULOSKELETAL/RHEUMATOLOGICAL Hx Musculoskeletal Disorders: No Hx Arthritis: No Hx Back Pain: No Hx Degenerative Joint Disease: No Hx Falls: No Hx Fractures: No Hx Gout: No Hx Herniated Disk: Yes Hx Myasthenia Gravis: No Hx Osteoarthritis: No Hx Osteomyelitis: No Hx Osteoporosis: No Hx Rhabdomyolysis: No Hx Rheumatoid Arthritis: No Hx Spinal Stenosis: No Hx Unsteady Gait: No - GASTROINTESTINAL Hx Gastrointestinal Disorders: No Hx Bowel Surgery: No - GENITOURINARY/GYNECOLOGICAL Hx Genitourinary Disorders: Yes Hx Bladder Cancer: No Hx Bladder Stone: Yes (kidney stones) Hx Hematuria: No Hx Incontinence: No Hx Prostate Cancer: No Hx Prostate Problems: Yes (BPH) Hx Reproductive Disorders: No Hx Sexually Transmitted Disorders: No Hx Urinary Tract Infection: No - PSYCHIATRIC Hx Psychophysiologic Disorder: No Hx Emotional Abuse: No Hx Physical Abuse: No Hx Substance Use: No - SURGICAL HISTORY Hx Abdominal Aortic Aneurysm Repair: No Hx Amputation: No Hx Angiogram: No Hx Angioplasty: No Hx Appendectomy: No Hx Arteriovenous Shunt: No Hx Arthroscopy: No Hx Bile Duct Stent: No Hx Breast Biopsy: No Hx Cataract Extraction: No Hx Cardiac Catheterization: No Hx Carotid Endarterectomy: No Hx Section: No Hx Cholecystectomy: No Hx Coronary Artery Bypass Graft: No Hx Coronary Stent: No Hx Dilation and Curettage: No Hx Eye Surgery: No Hx Femoral-Popliteal Bypass Graft: No Hx Gastric Bypass Surgery: No Hx Herniorrhaphy: Yes Hx Hysterectomy: No Hx Joint Replacement: No Hx Kidney Transplant: No Hx Liver Transplant: No Hx Tonsillectomy: No - ANESTHESIA Hx Anesthesia: Yes Hx Anesthesia Reactions: No Hx Malignant Hyperthermia: No Meds Allergies/Adverse Reactions: Allergies Allergy/AdvReac Type Severity Reaction Status Date / Time No Known Allergies Allergy Verified 12/06/18 05:20 - Medications Medications: Current Medications Albuterol Sulfate (Albuterol 0.083% Inhal Hawa (2.5 Mg/3 Ml) Ud) 2.5 mg IH Q6H PRN PRN Reason: Shortness of Breath Aspirin (Aspirin Chewable) 81 mg PO DAILY [facility] Last Admin: 12/10/18 09:29 Dose: 81 mg Carvedilol (Coreg) 25 mg PO Q12 [facility] Last Admin: 12/10/18 09:30 Dose: 25 mg Clopidogrel Bisulfate (Plavix) 75 mg PO DAILY [facility] Last Admin: 12/10/18 09:30 Dose: 75 mg Finasteride (Proscar) 5 mg PO DAILY [facility] Last Admin: 12/10/18 09:30 Dose: 5 mg Sodium Chloride (Sodium Chloride 0.9%) 1,000 mls @ 60 mls/hr IV .[id number] [facility] Stop: 12/11/18 11:42 Lisinopril (Zestril) 5 mg PO DAILY [facility] Last Admin: 12/10/18 09:31 Dose: 5 mg Spironolactone (Aldactone) 12.5 mg PO DAILY [facility] Last Admin: 12/10/18 09:29 Dose: 12.5 mg Tamsulosin HCl (Flomax) 0.4 mg PO DAILY [facility] Last Admin: 12/10/18 09:30 Dose: 0.4 mg Physical Exam - Constitutional Appears: No Acute Distress - Eye Exam Eye Exam: Conjunctival injection - ENT Exam ENT Exam: Mucous Membranes Dry - Neck Exam Neck exam: Negative for: Lymphadenopathy - Respiratory Exam Respiratory Exam: NORMAL BREATHING PATTERN. absent: Chest Wall Tenderness, Rales, Rhonchi - Cardiovascular Exam Cardiovascular Exam: absent: Clicks, Gallop, JVD, Rubs - GI/Abdominal Exam GI & Abdominal Exam: Normal Bowel Sounds. absent: Guarding - Extremities Exam Extremities exam: Negative for: calf tenderness, pedal edema - Back Exam Back exam: absent: CVA tenderness (L), CVA tenderness (R) - Neurological Exam Neurological exam: Alert - Psychiatric Exam Psychiatric exam: Normal Affect Results - Vital Signs Recent Vital Signs: Last Vital Signs Temp 98.2 F 12/10/18 11:48 Pulse 86 12/10/18 11:48 Resp 18 12/10/18 11:48 BP 109/66 12/10/18 11:48 Pulse Ox 95 12/10/18 11:48 - Labs Result Diagrams: 12/09/18 05:18 12/10/18 05:00 Labs: Laboratory Results - last 24 hr 12/10/18 12/10/18 12/10/18 05:00 05:00 05:00 PT 13.5 H INR 1.2 APTT 29.1 Sodium 123 L Potassium 3.9 Chloride 83 L Carbon Dioxide 31 H Anion Gap 13 BUN 24 H Creatinine 0.7 L Est GFR ( Amer) > 60 Est GFR (Non-Af Amer) > 60 Random Glucose 114 H Lactic Acid 0.9 Calcium 8.6 Assessment & Plan (1) CHF exacerbation Status: Acute (2) Chronic hyponatremia Assessment and Plan: Hyponatremia Hypochloremia CO2 was as high as 34 consistent with slight metabolic alkalosis Above finding consistent with diuretics induced above electrolyte imbalance Recommendation Clinically patient appears to be dry therefore we will give some normal saline carefully about 30 cc/h knowing that he was admitted with CHF patient perhaps over diuresed? Repeat BMP tomorrow morning Monitor the patient clinically Patient may need oral salt temporarily for 2 days perhaps Status: Acute
[2018-12-10] MEDS: Sodium Chloride 0.9% 1,000 ML IV SCH ×2 (12:15→12:38)
[2018-12-10] MEDS ORDERED: Sodium Chloride 0.9% 1,000 ML IV SCH (12:15)
[2018-12-10 13:11] LABS: CREATININE, RANDOM URINE 74.1 mg/dL
--- NOTE | 2018-12-10 16:29 | CP.PCM.CON ---
History of Present Illness - History of Present Illness History of Present Illness: Consultation for evaluation of CHF exacerbation HPI: 78-year-old male with past medical history significant for chronic atrial fibri llation ischemic cardiomyopathy ejection fraction of 20-25% severe triple-vessel CAD who underwent revascularization of triple-vessel disease with high risk angioplasty with Impala support last month at [place] who presented on the with complaints an episode of diaphoresis and near syncope . Initial NT proBNP was 1050 was ruled out for ACS with serial troponin x3 during hospitalization and was noted be hypocholermic and hyponatremic. Had TRUSS MAKER for an episode of Cp with some ST changes noted in lateral leads Review of Systems - Review of Systems Systems not reviewed;Unavailable: Acuity of Condition - Constitutional Constitutional: As Per HPI - EENT Eyes: As Per HPI Ears: As Per HPI Nose/Mouth/Throat: As Per HPI - Cardiovascular Cardiovascular: As Per HPI - Respiratory Respiratory: As Per HPI - Gastrointestinal Gastrointestinal: As Per HPI - Genitourinary Genitourinary: As Per HPI - Reproductive: Male Reproductive:Male: As Per HPI - Musculoskeletal Musculoskeletal: As Per HPI - Integumentary Integumentary: As Per HPI - Neurological Neurological: As Per HPI - Psychiatric Psychiatric: As Per HPI - Endocrine Endocrine: As Per HPI - Hematologic/Lymphatic Hematologic: As Per HPI Past Patient History - Infectious Disease Hx of Infectious Diseases: None - Tetanus Immunizations Tetanus Immunization: Up to Date - Past Medical History & Family History Past Medical History?: Yes - Past Social History Smoking Status: Never Smoked - CARDIAC Hx Angina: No Hx Atrial Fibrillation: Yes Hx Cardia Arrhythmia: No Hx Circulatory Problems: No Hx Congestive Heart Failure: No Hx Heart Attack: No Hx Heart Murmur: No Hx Heart Transplant: No Hx Hypercholesterolemia: No Hx Hypertension: Yes Hx Hypotension: No Hx Internal Defibrillator: No Hx Mitral Valve Prolapse: No Hx Pacemaker: No Hx Peripheral Edema: No Hx Peripheral Vascular Disease: No - PULMONARY Hx Respiratory Disorders: No - NEUROLOGICAL Hx Neurological Disorder: No - HEENT Hx HEENT Problems: No - RENAL Hx Chronic Kidney Disease: No - ENDOCRINE/METABOLIC Hx Endocrine Disorders: No - HEMATOLOGICAL/ONCOLOGICAL Hx Blood Disorders: No Hx AIDS: No Hx Human Immunodeficiency Virus (HIV): No - INTEGUMENTARY Hx Dermatological Problems: No - MUSCULOSKELETAL/RHEUMATOLOGICAL Hx Musculoskeletal Disorders: No Hx Arthritis: No Hx Back Pain: No Hx Degenerative Joint Disease: No Hx Falls: No Hx Fractures: No Hx Gout: No Hx Herniated Disk: Yes Hx Myasthenia Gravis: No Hx Osteoarthritis: No Hx Osteomyelitis: No Hx Osteoporosis: No Hx Rhabdomyolysis: No Hx Rheumatoid Arthritis: No Hx Spinal Stenosis: No Hx Unsteady Gait: No - GASTROINTESTINAL Hx Gastrointestinal Disorders: No Hx Bowel Surgery: No - GENITOURINARY/GYNECOLOGICAL Hx Genitourinary Disorders: Yes Hx Bladder Cancer: No Hx Bladder Stone: Yes (kidney stones) Hx Hematuria: No Hx Incontinence: No Hx Prostate Cancer: No Hx Prostate Problems: Yes (BPH) Hx Reproductive Disorders: No Hx Sexually Transmitted Disorders: No Hx Urinary Tract Infection: No - PSYCHIATRIC Hx Psychophysiologic Disorder: No Hx Emotional Abuse: No Hx Physical Abuse: No Hx Substance Use: No - SURGICAL HISTORY Hx Abdominal Aortic Aneurysm Repair: No Hx Amputation: No Hx Angiogram: No Hx Angioplasty: No Hx Appendectomy: No Hx Arteriovenous Shunt: No Hx Arthroscopy: No Hx Bile Duct Stent: No Hx Breast Biopsy: No Hx Cataract Extraction: No Hx Cardiac Catheterization: No Hx Carotid Endarterectomy: No Hx Section: No Hx Cholecystectomy: No Hx Coronary Artery Bypass Graft: No Hx Coronary Stent: No Hx Dilation and Curettage: No Hx Eye Surgery: No Hx Femoral-Popliteal Bypass Graft: No Hx Gastric Bypass Surgery: No Hx Herniorrhaphy: Yes Hx Hysterectomy: No Hx Joint Replacement: No Hx Kidney Transplant: No Hx Liver Transplant: No Hx Tonsillectomy: No - ANESTHESIA Hx Anesthesia: Yes Hx Anesthesia Reactions: No Hx Malignant Hyperthermia: No Meds Allergies/Adverse Reactions: Allergies Allergy/AdvReac Type Severity Reaction Status Date / Time No Known Allergies Allergy Verified 12/06/18 05:20 - Medications Medications: Current Medications Albuterol Sulfate (Albuterol 0.083% Inhal Hawa (2.5 Mg/3 Ml) Ud) 2.5 mg IH Q6H PRN PRN Reason: Shortness of Breath Aspirin (Aspirin Chewable) 81 mg PO DAILY [facility] Last Admin: 12/10/18 09:29 Dose: 81 mg Carvedilol (Coreg) 25 mg PO Q12 [facility] Last Admin: 12/10/18 09:30 Dose: 25 mg Clopidogrel Bisulfate (Plavix) 75 mg PO DAILY [facility] Last Admin: 12/10/18 09:30 Dose: 75 mg Finasteride (Proscar) 5 mg PO DAILY [facility] Last Admin: 12/10/18 09:30 Dose: 5 mg Sodium Chloride (Sodium Chloride 0.9%) 1,000 mls @ 30 mls/hr IV .Q24H [facility] Stop: 12/11/18 11:42 Last Admin: 12/10/18 12:43 Dose: 30 mls/hr Lisinopril (Zestril) 5 mg PO DAILY [facility] Last Admin: 12/10/18 09:31 Dose: 5 mg Tamsulosin HCl (Flomax) 0.4 mg PO DAILY [facility] Last Admin: 12/10/18 09:30 Dose: 0.4 mg Physical Exam - Constitutional Appears: Well - Head Exam Head Exam: ATRAUMATIC, NORMAL INSPECTION, NORMOCEPHALIC - Eye Exam Eye Exam: EOMI, Normal appearance, PERRL Pupil Exam: NORMAL ACCOMODATION, PERRL - ENT Exam ENT Exam: Mucous Membranes Moist, Normal Exam - Neck Exam Neck exam: Positive for: Normal Inspection - Respiratory Exam Respiratory Exam: Clear to Auscultation Bilateral, NORMAL BREATHING PATTERN - Cardiovascular Exam Cardiovascular Exam: Irregular Rhythm, +S1, +S2, Systolic Murmur - GI/Abdominal Exam GI & Abdominal Exam: Normal Bowel Sounds, Soft. absent: Tenderness - Extremities Exam Extremities exam: Positive for: normal inspection - Back Exam Back exam: NORMAL INSPECTION - Neurological Exam Neurological exam: Alert, CN II-XII Intact, Normal Gait, Oriented x3, Reflexes Normal - Psychiatric Exam Psychiatric exam: Normal Affect, Normal Mood - Skin Skin Exam: Dry, Intact, Normal Color, Warm Results - Vital Signs Recent Vital Signs: Last Vital Signs Temp 98.2 F 12/10/18 13:00 Pulse 86 12/10/18 13:00 Resp 18 12/10/18 13:00 BP 109/66 12/10/18 13:00 Pulse Ox 95 12/10/18 13:00 - Labs Result Diagrams: 12/09/18 05:18 12/11/18 05:00 Labs: Laboratory Results - last 24 hr 12/10/18 12/10/18 12/10/18 05:00 05:00 05:00 PT 13.5 H INR 1.2 APTT 29.1 Sodium 123 L Potassium 3.9 Chloride 83 L Carbon Dioxide 31 H Anion Gap 13 BUN 24 H Creatinine 0.7 L Est GFR ( Amer) > 60 Est GFR (Non-Af Amer) > 60 Random Glucose 114 H Lactic Acid 0.9 Calcium 8.6 Urine Osmolality Ur Random Creatinine Ur Random Sodium 12/10/18 12:44 PT INR APTT Sodium Potassium Chloride Carbon Dioxide Anion Gap BUN Creatinine Est GFR ( Amer) Est GFR (Non-Af Amer) Random Glucose Lactic Acid Calcium Urine Osmolality 431 Ur Random Creatinine 74.1 Ur Random Sodium 8 Assessment & Plan (1) Hypovolemia Assessment and Plan: 2' to aggressive diuresis IVF hydration Status: Acute (2) CHF exacerbation Assessment and Plan: 2' to above cont bb and acei hold diuretics Status: Acute (3) Afib Assessment and Plan: cont xarelto and bb Status: Acute (4) Chronic hyponatremia Assessment and Plan: IVF hydration Status: Acute (5) HTN (hypertension) Status: Acute (6) CAD (coronary artery disease) Assessment and Plan: cont asa and plavix Status: Acute
[2018-12-11 05:52] LABS: BLOOD UREA NITROGEN 24 mg/dl (9-20); CALCIUM 8.5 mg/dL (8.4-10.2); GFR NON-AFRICAN AMERICAN > 60
[2018-12-11] MEDS ORDERED: Tolvaptan 15 MG TAB PO ONE (10:40)
--- NOTE | 2018-12-11 11:28 | CP.PCM.PN ---
<Belinda Meza - Last Filed: 12/11/18 11:52> Subjective - Date & Time of Evaluation Date of Evaluation: 12/11/18 Time of Evaluation: 08:00 - Subjective Subjective: Pt seen at bedside this morning. Feeling well, urinating xander colored urine, no hematuria, no difficulty urinating. Tolerating PO intake. Pt fluid restricted to 800cc. Ambulating with PT. Denies fever, chills, chest pain, SOB, N/V/D/C. Objective - Vital Signs/Intake and Output Vital Signs (last 24 hours): Temp Pulse Resp BP Pulse Ox 98.7 F 81 18 131/78 97 12/11/18 07:50 12/11/18 08:09 12/11/18 07:50 12/11/18 08:09 12/11/18 07:50 - Medications Medications: Current Medications Albuterol Sulfate (Albuterol 0.083% Inhal Hawa (2.5 Mg/3 Ml) Ud) 2.5 mg IH Q6H PRN PRN Reason: Shortness of Breath Aspirin (Aspirin Chewable) 81 mg PO DAILY [facility] Last Admin: 12/11/18 08:09 Dose: 81 mg Carvedilol (Coreg) 25 mg PO Q12 [facility] Last Admin: 12/11/18 08:09 Dose: 25 mg Clopidogrel Bisulfate (Plavix) 75 mg PO DAILY [facility] Last Admin: 12/11/18 08:09 Dose: 75 mg Finasteride (Proscar) 5 mg PO DAILY [facility] Last Admin: 12/11/18 08:09 Dose: 5 mg Lisinopril (Zestril) 5 mg PO DAILY [facility] Last Admin: 12/11/18 08:09 Dose: 5 mg Rivaroxaban (Xarelto) 20 mg PO DAILY@1700 [facility]; Protocol Last Admin: 12/11/18 09:15 Dose: 20 mg Tamsulosin HCl (Flomax) 0.4 mg PO DAILY [facility] Last Admin: 12/11/18 08:10 Dose: 0.4 mg - Labs Labs: 12/09/18 05:18 12/11/18 05:00 PT 13.5 Seconds (9.8-13.1) H 12/10/18 05:00 INR 1.2 12/10/18 05:00 APTT 29.1 Seconds (25.6-37.1) 12/10/18 05:00 - Constitutional Appears: Non-toxic - Eye Exam Eye Exam: EOMI - ENT Exam ENT Exam: Mucous Membranes Moist - Respiratory Exam Respiratory Exam: absent: Clear to Ausculation Bilateral, Rales, Rhonchi, Wheezes - Cardiovascular Exam Cardiovascular Exam: RRR, +S1, +S2 - GI/Abdominal Exam GI & Abdominal Exam: Soft. absent: Tenderness - Extremities Exam Extremities Exam: Normal Inspection. absent: Pedal Edema - Neurological Exam Neurological Exam: Alert, Awake, Oriented x3 Assessment and Plan - Assessment and Plan (Free Text) Assessment: Pt is a 78 yo M with hx of recent PCI 5 stents placed at [place] 1 mo ago, A fib, BPH, HTN presented to the ED with SOB, fatigue, feeling off, weakness and blurry vision admitted for CHF exacerbation. 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 He was given extra 40 mg lasix IV, SL nitro and started on Heparin drip after initial bolus.He then started developing mild hematuria at night but with significantly improved clinical status since then. Heparin drip was continued at 10 ml/hr(dose was not increase and no extra bolus was given due to hematuria).heparin drip was then DCed. hematuria resolved Cardiology consulted- Dr. Moreno- f/u reccs C/w Coreg 25mg q12h, Lisinopril 5mg QD C/w Plavix and ASA, restarted Xarelto 20mg QD today Blood cx no growth @5days PT/OT reccs- home PT with services, Home Nurse services Monitor VS, I/O's daily weights Hyponatremia likely due to the diuretics acute on chronic Na 124 today D/C Lasix and Spironolactone Nephrology consulted- Dr. Spaulding-reccs appreciated Sodium tablet x2 dose Tolvaptan 15mg once Serum sodium at 8pm today, then serum sodium tomorrow morning Fluid restriction @800ml per day F/u BMP, in AM Hematuria prob due to antiplatelets and Heparin acute, resolved Heparin stopped. Asymptomatic bladder training, xander urine today Restarted Xarelto 20mg QD Monitor coags Urinary Retention likely due to Prostatic Enlargement chronic BPH c/w Finasteride 5mg QD and Tamsulosin 0.4mg QD A Fib, chronic with RVR Restarted Xarelto 20mg QD Diet Heart healthy DVT PPx S/P Heparin drip Plavix 75mg QD <Monse Miller Nargis - Last Filed: 12/11/18 14:39> Objective - Vital Signs/Intake and Output Vital Signs (last 24 hours): Temp Pulse Resp BP Pulse Ox 98.9 F 74 18 107/68 95 12/11/18 11:49 12/11/18 11:49 12/11/18 11:49 12/11/18 11:49 12/11/18 11:49 - Medications Medications: Current Medications Albuterol Sulfate (Albuterol 0.083% Inhal Hawa (2.5 Mg/3 Ml) Ud) 2.5 mg IH Q6H PRN PRN Reason: Shortness of Breath Aspirin (Aspirin Chewable) 81 mg PO DAILY [facility] Last Admin: 12/11/18 08:09 Dose: 81 mg Carvedilol (Coreg) 25 mg PO Q12 [facility] Last Admin: 12/11/18 08:09 Dose: 25 mg Clopidogrel Bisulfate (Plavix) 75 mg PO DAILY [facility] Last Admin: 12/11/18 08:09 Dose: 75 mg Finasteride (Proscar) 5 mg PO DAILY [facility] Last Admin: 12/11/18 08:09 Dose: 5 mg Lisinopril (Zestril) 5 mg PO DAILY [facility] Last Admin: 12/11/18 08:09 Dose: 5 mg Rivaroxaban (Xarelto) 20 mg PO DAILY@1700 [place]; Protocol Last Admin: 12/11/18 09:15 Dose: 20 mg Tamsulosin HCl (Flomax) 0.4 mg PO DAILY [facility] Last Admin: 12/11/18 08:10 Dose: 0.4 mg - Labs Labs: 12/09/18 05:18 12/11/18 05:00 PT 13.5 Seconds (9.8-13.1) H 12/10/18 05:00 INR 1.2 12/10/18 05:00 APTT 29.1 Seconds (25.6-37.1) 12/10/18 05:00 Attending/Attestation - Attestation I have personally seen and examined this patient.: Yes I have fully participated in the care of the patient.: Yes I have reviewed all pertinent clinical information, including history, physical exam and plan: Yes Notes (Text): CAD, Suspected NSTEMI Acute 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% Ischemic Cardiomyopathy Hyponatremia likely due to the diuretics A Fib, chronic with RVR Hematuria prob due to antiplatelets and Heparin Urinary Retention likely due to Prostatic Enlargement - Troponin negative - d/c Lasix IV, and Aldactone due to hyponatremia - cont low dose Lisinopril 5 mg daily and Coreg 25 mg q 12 - cont Plavix, cont ASA as hematuria is resolving ( pt has stent in place) -restart Xarelto ( hematuria cleared up) -cont Flomax and Proscar, Urinary retention resolved - Cardio consult- Dr Moreno -Sodium dropped to 123, 124 today - Fluid restriction to 800ml - Nephrology consult- discussed with Dr Spaulding , will start Vaptan
--- NOTE | 2018-12-11 11:40 | CP.PCM.PN ---
Subjective - Date & Time of Evaluation Date of Evaluation: 12/11/18 Time of Evaluation: 11:44 - Subjective Subjective: Patient awake and conscious not in acute distress. Vital signs stable No nausea no vomiting Objective - Vital Signs/Intake and Output Vital Signs (last 24 hours): Temp Pulse Resp BP Pulse Ox 98.7 F 81 18 131/78 97 12/11/18 07:50 12/11/18 08:09 12/11/18 07:50 12/11/18 08:09 12/11/18 07:50 - Medications Medications: Current Medications Albuterol Sulfate (Albuterol 0.083% Inhal Hawa (2.5 Mg/3 Ml) Ud) 2.5 mg IH Q6H PRN PRN Reason: Shortness of Breath Aspirin (Aspirin Chewable) 81 mg PO DAILY [facility] Last Admin: 12/11/18 08:09 Dose: 81 mg Carvedilol (Coreg) 25 mg PO Q12 [facility] Last Admin: 12/11/18 08:09 Dose: 25 mg Clopidogrel Bisulfate (Plavix) 75 mg PO DAILY [facility] Last Admin: 12/11/18 08:09 Dose: 75 mg Finasteride (Proscar) 5 mg PO DAILY [facility] Last Admin: 12/11/18 08:09 Dose: 5 mg Lisinopril (Zestril) 5 mg PO DAILY [facility] Last Admin: 12/11/18 08:09 Dose: 5 mg Rivaroxaban (Xarelto) 20 mg PO DAILY@1700 [place]; Protocol Last Admin: 12/11/18 09:15 Dose: 20 mg Tamsulosin HCl (Flomax) 0.4 mg PO DAILY [facility] Last Admin: 12/11/18 08:10 Dose: 0.4 mg - Labs Labs: 12/09/18 05:18 12/11/18 05:00 PT 13.5 Seconds (9.8-13.1) H 12/10/18 05:00 INR 1.2 12/10/18 05:00 APTT 29.1 Seconds (25.6-37.1) 12/10/18 05:00 - Constitutional Appears: No Acute Distress - Eye Exam Eye Exam: Conjunctival injection - ENT Exam ENT Exam: Mucous Membranes Moist - Neck Exam Neck Exam: absent: Lymphadenopathy - Respiratory Exam Respiratory Exam: NORMAL BREATHING PATTERN. absent: Chest Wall Tenderness - Cardiovascular Exam Cardiovascular Exam: absent: Gallop, JVD, Rubs - GI/Abdominal Exam GI & Abdominal Exam: Soft, Normal Bowel Sounds - Extremities Exam Extremities Exam: absent: Calf Tenderness - Back Exam Back Exam: absent: CVA tenderness (L), CVA tenderness (R) - Neurological Exam Neurological Exam: Alert - Psychiatric Exam Psychiatric exam: Normal Affect - Skin Skin Exam: absent: Cyanosis Assessment and Plan (1) CHF exacerbation Status: Acute (2) Chronic hyponatremia Assessment & Plan: Congestive cardiomyopathy with ejection fraction 20-25% reported by the cardiology Persistent hyponatremia Atrial fibrillation H/O post CABG Recommendation Hyponatremia did not response to gentle IV normal saline serum sodium is still around 124 Stat Samsca 15 mg Monitor serum sodium not to rise more than 8-9 mEq or so in the next 24 hours Therefore suggest to do serum sodium at around 8 PM today and serum sodium tomorrow morning Status: Acute
--- NOTE | 2018-12-11 14:32 | CP.PCM.PN ---
Subjective - Date & Time of Evaluation Date of Evaluation: 12/11/18 Time of Evaluation: 12:30 - Subjective Subjective: examine patient in bed, no acute distress Objective - Vital Signs/Intake and Output Vital Signs (last 24 hours): Temp Pulse Resp BP Pulse Ox 98.9 F 74 18 107/68 95 12/11/18 11:49 12/11/18 11:49 12/11/18 11:49 12/11/18 11:49 12/11/18 11:49 - Medications Medications: Current Medications Albuterol Sulfate (Albuterol 0.083% Inhal Hawa (2.5 Mg/3 Ml) Ud) 2.5 mg IH Q6H PRN PRN Reason: Shortness of Breath Aspirin (Aspirin Chewable) 81 mg PO DAILY [facility] Last Admin: 12/11/18 08:09 Dose: 81 mg Carvedilol (Coreg) 25 mg PO Q12 [facility] Last Admin: 12/11/18 08:09 Dose: 25 mg Clopidogrel Bisulfate (Plavix) 75 mg PO DAILY [facility] Last Admin: 12/11/18 08:09 Dose: 75 mg Finasteride (Proscar) 5 mg PO DAILY [facility] Last Admin: 12/11/18 08:09 Dose: 5 mg Lisinopril (Zestril) 5 mg PO DAILY [facility] Last Admin: 12/11/18 08:09 Dose: 5 mg Rivaroxaban (Xarelto) 20 mg PO DAILY@1700 [place]; Protocol Last Admin: 12/11/18 09:15 Dose: 20 mg Tamsulosin HCl (Flomax) 0.4 mg PO DAILY [facility] Last Admin: 12/11/18 08:10 Dose: 0.4 mg - Labs Labs: 12/09/18 05:18 12/11/18 05:00 PT 13.5 Seconds (9.8-13.1) H 12/10/18 05:00 INR 1.2 12/10/18 05:00 APTT 29.1 Seconds (25.6-37.1) 12/10/18 05:00 - Constitutional Appears: No Acute Distress, Chronically Ill - Head Exam Head Exam: ATRAUMATIC, NORMAL INSPECTION, NORMOCEPHALIC - Eye Exam Eye Exam: Normal appearance, PERRL - ENT Exam ENT Exam: Mucous Membranes Moist - Respiratory Exam Respiratory Exam: Decreased Breath Sounds - Cardiovascular Exam Cardiovascular Exam: REGULAR RHYTHM - GI/Abdominal Exam GI & Abdominal Exam: Soft, Normal Bowel Sounds - Neurological Exam Neurological Exam: Alert, Awake, Oriented x3 - Psychiatric Exam Psychiatric exam: Normal Affect, Normal Mood - Skin Skin Exam: Dry, Pallor, Warm Assessment and Plan - Assessment and Plan (Free Text) Assessment: Palliative Care Examined patient in bed, no acute distress, complains of mild headache As per patient son, Lois Corley who lives in [place], is the designated decision maker if he is ever unable to make decisions for himself. Lois Gamma can be reached at [phone] Impression CHF exacerbation Decreased Mobility (patient lives alone) Suggestion Continue PT, assist with ambulation Time spent with patient 30 min
--- NOTE | 2018-12-11 14:58 | CP.PCM.PN ---
Subjective - Date & Time of Evaluation Date of Evaluation: 12/11/18 Time of Evaluation: 14:57 - Subjective Subjective: urine dark Na low Objective - Vital Signs/Intake and Output Vital Signs (last 24 hours): Temp Pulse Resp BP Pulse Ox 98.9 F 74 18 107/68 95 12/11/18 11:49 12/11/18 11:49 12/11/18 11:49 12/11/18 11:49 12/11/18 11:49 - Medications Medications: Current Medications Albuterol Sulfate (Albuterol 0.083% Inhal Hawa (2.5 Mg/3 Ml) Ud) 2.5 mg IH Q6H PRN PRN Reason: Shortness of Breath Aspirin (Aspirin Chewable) 81 mg PO DAILY [facility] Last Admin: 12/11/18 08:09 Dose: 81 mg Carvedilol (Coreg) 25 mg PO Q12 [facility] Last Admin: 12/11/18 08:09 Dose: 25 mg Clopidogrel Bisulfate (Plavix) 75 mg PO DAILY [facility] Last Admin: 12/11/18 08:09 Dose: 75 mg Finasteride (Proscar) 5 mg PO DAILY [facility] Last Admin: 12/11/18 08:09 Dose: 5 mg Lisinopril (Zestril) 5 mg PO DAILY [facility] Last Admin: 12/11/18 08:09 Dose: 5 mg Rivaroxaban (Xarelto) 20 mg PO DAILY@1700 [place]; Protocol Last Admin: 12/11/18 09:15 Dose: 20 mg Tamsulosin HCl (Flomax) 0.4 mg PO DAILY [facility] Last Admin: 12/11/18 08:10 Dose: 0.4 mg - Labs Labs: 12/09/18 05:18 12/11/18 05:00 PT 13.5 Seconds (9.8-13.1) H 12/10/18 05:00 INR 1.2 12/10/18 05:00 APTT 29.1 Seconds (25.6-37.1) 12/10/18 05:00 - Constitutional Appears: Well - Head Exam Head Exam: ATRAUMATIC, NORMAL INSPECTION, NORMOCEPHALIC - Eye Exam Eye Exam: EOMI, Normal appearance, PERRL Pupil Exam: NORMAL ACCOMODATION, PERRL - ENT Exam ENT Exam: Mucous Membranes Moist, Normal Exam - Neck Exam Neck Exam: Full ROM, Normal Inspection. absent: Lymphadenopathy - Respiratory Exam Respiratory Exam: Clear to Ausculation Bilateral, NORMAL BREATHING PATTERN - Cardiovascular Exam Cardiovascular Exam: Irregular Rhythm, +S1, +S2. absent: Murmur - GI/Abdominal Exam GI & Abdominal Exam: Soft, Normal Bowel Sounds. absent: Tenderness - Extremities Exam Extremities Exam: Full ROM, Normal Capillary Refill, Normal Inspection. absent: Joint Swelling, Pedal Edema - Back Exam Back Exam: NORMAL INSPECTION - Neurological Exam Neurological Exam: Alert, Awake, CN II-XII Intact, Normal Gait, Oriented x3 - Psychiatric Exam Psychiatric exam: Normal Affect, Normal Mood - Skin Skin Exam: Dry, Intact, Normal Color, Warm Assessment and Plan (1) Hypovolemia Assessment & Plan: IVF hydration with NS @ 75 cc/hr Status: Acute (2) CHF exacerbation Status: Acute (3) Afib Status: Acute (4) Chronic hyponatremia Status: Acute (5) HTN (hypertension) Status: Acute (6) CAD (coronary artery disease) Status: Acute
[2018-12-11] MEDS: Sodium Chloride 0.9% 1,000 ML IV SCH (15:28)
[2018-12-11 21:05] LABS: BLOOD UREA NITROGEN 21 mg/dl (9-20); CALCIUM 8.8 mg/dL (8.4-10.2); GFR NON-AFRICAN AMERICAN > 60
[2018-12-12] MEDS: Sodium Chloride 0.9% 1,000 ML IV SCH (04:54)
[2018-12-12 06:09] LABS: HEMOGLOBIN 12.7 g/dL (12.0-18.0); MEAN CELL VOLUME 84.2 fl (80.0-94.0); MEAN CORPUSCULAR HEMOGLOBIN 28.1 pg (27.0-31.0); MEAN CORPUSCULAR HGB CONC 33.3 g/dL (33.0-37.0); RBC 4.54 Mil/uL (4.40-5.90); RED CELL DISTRIBUTION WIDTH 14.2 % (11.5-14.5); WHITE BLOOD COUNT 5.2 K/uL (4.8-10.8)
[2018-12-12 06:27] LABS: BLOOD UREA NITROGEN 16 mg/dl (9-20); CALCIUM 8.8 mg/dL (8.4-10.2); GFR NON-AFRICAN AMERICAN > 60
--- NOTE | 2018-12-12 07:59 | CP.PCM.PN ---
<Belinda Meza - Last Filed: 12/12/18 11:02> Subjective - Date & Time of Evaluation Date of Evaluation: 12/12/18 Time of Evaluation: 10:43 - Subjective Subjective: Pt seen at bedside this morning. Feeling well, pt began to have bright red hematuria again and mild nose bleed after resuming Xarelto, therefore ASA and Xaretlo were held. No difficulty urinating. Pt reports constipation, last bowel movement was before being in the hospital. Tolerating PO intake. Pt fluid restricted to 800cc. Ambulating with PT. Denies fever, chills, chest pain, SOB, N/V. Objective - Vital Signs/Intake and Output Vital Signs (last 24 hours): Temp Pulse Resp BP Pulse Ox 98.9 F 78 16 119/73 95 12/12/18 05:00 12/12/18 05:00 12/12/18 05:00 12/12/18 05:00 12/12/18 05:00 Intake and Output: 12/12/18 12/12/18 06:59 18:59 Intake Total 1700 Output Total 1200 Balance 500 - Medications Medications: Current Medications Albuterol Sulfate (Albuterol 0.083% Inhal Hawa (2.5 Mg/3 Ml) Ud) 2.5 mg IH Q6H PRN PRN Reason: Shortness of Breath Carvedilol (Coreg) [address] [facility] Last Admin: 12/11/18 21:20 Dose: 25 mg Clopidogrel Bisulfate (Plavix) [address] [facility] Last Admin: 12/11/18 08:09 Dose: 75 mg Finasteride (Proscar) [address] [facility] Last Admin: 12/11/18 08:09 Dose: 5 mg Sodium Chloride (Sodium Chloride 0.9%) 1,000 mls @ 75 mls/hr IV .[id number] [facility] Stop: 12/12/18 15:20 Last Admin: 12/12/18 04:54 Dose: 75 mls/hr Lisinopril (Zestril) [address] [facility] Last Admin: 12/11/18 08:09 Dose: 5 mg Tamsulosin HCl (Flomax) 0.[address] [facility] Last Admin: 12/11/18 08:10 Dose: 0.4 mg - Labs Labs: 12/12/18 05:35 12/12/18 05:35 PT 13.5 Seconds (9.8-13.1) H 12/10/18 05:00 INR 1.2 12/10/18 05:00 APTT 29.1 Seconds (25.6-37.1) 12/10/18 05:00 - Constitutional Appears: Non-toxic, No Acute Distress - Head Exam Head Exam: NORMAL INSPECTION, NORMOCEPHALIC - Eye Exam Eye Exam: EOMI - ENT Exam ENT Exam: Mucous Membranes Moist - Respiratory Exam Respiratory Exam: Clear to Ausculation Bilateral. absent: Rales, Rhonchi, Whe ezes - Cardiovascular Exam Cardiovascular Exam: RRR, +S1, +S2 - GI/Abdominal Exam GI & Abdominal Exam: Soft, Normal Bowel Sounds. absent: Tenderness - Extremities Exam Extremities Exam: Pedal Edema. absent: Normal Inspection - Neurological Exam Neurological Exam: Alert, Awake, Oriented x3 Assessment and Plan - Assessment and Plan (Free Text) Assessment: Pt is a 78 yo M with hx of recent PCI 5 stents placed at [place] 1 mo ago, A fib, BPH, HTN presented to the ED with SOB, fatigue, feeling off, weakness and blurry vision admitted for CHF exacerbation. 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 He was given extra 40 mg lasix IV, SL nitro and started on Heparin drip after initial bolus.He then started developing mild hematuria at night but with significantly improved clinical status since then. Heparin drip was continued at 10 ml/hr(dose was not increase and no extra bolus was given due to hematuria).heparin drip was then DCed. hematuria resolved Cardiology consulted- Dr. Moreno- reccs appreciated C/w Coreg 25mg q12h, Lisinopril 5mg QD C/w Plavix Held ASA and Xarelto due to hematuria Blood cx no growth @5days PT/OT reccs- home PT with services, Home Nurse services Monitor VS, I/O's daily weights Hyponatremia likely due to the diuretics acute on chronic, improving Na 129 today D/C Lasix and Spironolactone Nephrology consulted- Dr. Spaulding-reccs appreciated s/p Sodium tablet x2 dose Tolvaptan 15mg once Nephro reccs- Fluid restriction @1000ml per day F/u BMP in AM Hematuria prob due to antiplatelets and Heparin acute, bright red urine Began after resuming Xarelto 20mg QD Stopped Xarelto and ASA, c/w plavix Heparin stopped. Asymptomatic Monitor coags Urinary Retention likely due to Prostatic Enlargement chronic BPH c/w Finasteride 5mg QD and Tamsulosin 0.4mg QD A Fib, chronic with RVR Held Xarelto due to hematuria Diet Heart healthy DVT PPx S/P Heparin drip Plavix 75mg QD <Debbie Mtz - Last Filed: 12/13/18 21:28> Objective - Vital Signs/Intake and Output Vital Signs (last 24 hours): Temp Pulse Resp BP Pulse Ox 98.9 F 95 H 18 120/83 99 12/13/18 20:06 12/13/18 20:06 12/13/18 20:06 12/13/18 20:06 12/13/18 20:06 Intake and Output: 12/13/18 12/14/18 18:59 06:59 Intake Total 240 Output Total 900 Balance -660 - Medications Medications: Current Medications Albuterol Sulfate (Albuterol 0.083% Inhal Hawa (2.5 Mg/3 Ml) Ud) 2.5 mg IH Q6H PRN PRN Reason: Shortness of Breath Carvedilol (Coreg) [address] [facility] Last Admin: 12/13/18 09:48 Dose: 25 mg Clopidogrel Bisulfate (Plavix) [address] [facility] Last Admin: 12/13/18 09:49 Dose: 75 mg Docusate Sodium (Colace) [address] [facility] Last Admin: 12/13/18 09:48 Dose: 100 mg Finasteride (Proscar) [address] [facility] Last Admin: 12/13/18 09:49 Dose: 5 mg Lisinopril (Zestril) [address] [facility] Last Admin: 12/13/18 09:49 Dose: 5 mg Rivaroxaban (Xarelto) [address] [facility]; Protocol Tamsulosin HCl (Flomax) 0.[address] [facility] Last Admin: 12/13/18 09:49 Dose: 0.4 mg - Labs Labs: 04/26/19 04:35 12/13/18 04:35 PT 13.6 Seconds (9.8-13.1) H 12/13/18 04:35 INR 1.2 12/13/18 04:35 APTT 30.4 Seconds (25.6-37.1) 12/13/18 04:35 Attending/Attestation - Attestation I have personally seen and examined this patient.: Yes I have fully participated in the care of the patient.: Yes I have reviewed all pertinent clinical information, including history, physical exam and plan: Yes Notes (Text): agree with findings and plan as above.
--- NOTE | 2018-12-12 10:43 | CP.PCM.PN ---
Subjective - Date & Time of Evaluation Date of Evaluation: 12/12/18 Time of Evaluation: 10:43 - Subjective Subjective: Patient awake and conscious not in acute distress. Vital signs stable. Objective - Vital Signs/Intake and Output Vital Signs (last 24 hours): Temp Pulse Resp BP Pulse Ox 98.8 F 65 18 129/76 97 12/12/18 09:00 12/12/18 09:00 12/12/18 09:00 12/12/18 09:00 12/12/18 09:00 Intake and Output: 12/12/18 12/12/18 06:59 18:59 Intake Total 1700 Output Total 1200 Balance 500 - Medications Medications: Current Medications Albuterol Sulfate (Albuterol 0.083% Inhal Hawa (2.5 Mg/3 Ml) Ud) 2.5 mg IH Q6H PRN PRN Reason: Shortness of Breath Carvedilol (Coreg) 25 mg PO Q12 [facility] Last Admin: 12/12/18 08:54 Dose: 25 mg Clopidogrel Bisulfate (Plavix) 75 mg PO DAILY [facility] Last Admin: 12/12/18 08:54 Dose: 75 mg Finasteride (Proscar) 5 mg PO DAILY [facility] Last Admin: 12/12/18 08:54 Dose: 5 mg Sodium Chloride (Sodium Chloride 0.9%) 1,000 mls @ 75 mls/hr IV .[id number] [facility] Stop: 12/12/18 15:20 Last Admin: 12/12/18 04:54 Dose: 75 mls/hr Lisinopril (Zestril) 5 mg PO DAILY [facility] Last Admin: 12/12/18 08:53 Dose: 5 mg Tamsulosin HCl (Flomax) 0.4 mg PO DAILY [facility] Last Admin: 12/12/18 08:54 Dose: 0.4 mg - Labs Labs: 12/12/18 05:35 12/12/18 05:35 PT 13.5 Seconds (9.8-13.1) H 12/10/18 05:00 INR 1.2 12/10/18 05:00 APTT 29.1 Seconds (25.6-37.1) 12/10/18 05:00 - Constitutional Appears: No Acute Distress - Eye Exam Eye Exam: Conjunctival injection - ENT Exam ENT Exam: Mucous Membranes Moist - Neck Exam Neck Exam: absent: Lymphadenopathy - Respiratory Exam Respiratory Exam: NORMAL BREATHING PATTERN. absent: Chest Wall Tenderness - Cardiovascular Exam Cardiovascular Exam: absent: Gallop, JVD, Rubs - GI/Abdominal Exam GI & Abdominal Exam: Soft, Normal Bowel Sounds - Extremities Exam Extremities Exam: absent: Calf Tenderness - Back Exam Back Exam: absent: CVA tenderness (L), CVA tenderness (R) - Neurological Exam Neurological Exam: Alert - Psychiatric Exam Psychiatric exam: Normal Affect - Skin Skin Exam: absent: Cyanosis Assessment and Plan (1) CHF exacerbation Status: Acute (2) Chronic hyponatremia Assessment & Plan: Congestive cardiomyopathy with ejection fraction 20-25% reported by the cardiology Persistent hyponatremia Atrial fibrillation H/O post CABG Recommendation Serum sodium came up to 129 after 1 dose of Samsca 15 mg Patient need to have the fluid restriction about 1000 cc in 24 hours Status: Acute
--- NOTE | 2018-12-12 18:05 | CP.PCM.PN ---
Subjective - Date & Time of Evaluation Date of Evaluation: 12/12/18 Time of Evaluation: 18:04 - Subjective Subjective: hematuria noted - xarelto / asa held na 129 Objective - Vital Signs/Intake and Output Vital Signs (last 24 hours): Temp Pulse Resp BP Pulse Ox 99.6 F 92 H 18 144/66 94 L 12/12/18 16:05 12/12/18 16:05 12/12/18 16:05 12/12/18 16:05 12/12/18 16:05 Intake and Output: 12/12/18 12/12/18 06:59 18:59 Intake Total 1700 Output Total 1200 Balance 500 - Medications Medications: Current Medications Albuterol Sulfate (Albuterol 0.083% Inhal Hawa (2.5 Mg/3 Ml) Ud) 2.5 mg IH Q6H PRN PRN Reason: Shortness of Breath Carvedilol (Coreg) 25 mg PO Q12 [facility] Last Admin: 12/12/18 08:54 Dose: 25 mg Clopidogrel Bisulfate (Plavix) 75 mg PO DAILY [facility] Last Admin: 12/12/18 08:54 Dose: 75 mg Docusate Sodium (Colace) 100 mg PO DAILY [facility] Last Admin: 12/12/18 11:28 Dose: 100 mg Finasteride (Proscar) 5 mg PO DAILY [facility] Last Admin: 12/12/18 08:54 Dose: 5 mg Lisinopril (Zestril) 5 mg PO DAILY [facility] Last Admin: 12/12/18 08:53 Dose: 5 mg Rivaroxaban (Xarelto) 10 mg PO DAILY [facility]; Protocol Tamsulosin HCl (Flomax) 0.4 mg PO DAILY [facility] Last Admin: 12/12/18 08:54 Dose: 0.4 mg - Labs Labs: 12/12/18 05:35 12/12/18 05:35 PT 13.5 Seconds (9.8-13.1) H 12/10/18 05:00 INR 1.2 12/10/18 05:00 APTT 29.1 Seconds (25.6-37.1) 12/10/18 05:00 - Constitutional Appears: Well - Head Exam Head Exam: ATRAUMATIC, NORMAL INSPECTION, NORMOCEPHALIC - Eye Exam Eye Exam: EOMI, Normal appearance, PERRL Pupil Exam: NORMAL ACCOMODATION, PERRL - ENT Exam ENT Exam: Mucous Membranes Moist, Normal Exam - Neck Exam Neck Exam: Full ROM, Normal Inspection. absent: Lymphadenopathy - Respiratory Exam Respiratory Exam: Clear to Ausculation Bilateral, NORMAL BREATHING PATTERN - Cardiovascular Exam Cardiovascular Exam: REGULAR RHYTHM, +S1, +S2. absent: Murmur - GI/Abdominal Exam GI & Abdominal Exam: Soft, Normal Bowel Sounds. absent: Tenderness - Extremities Exam Extremities Exam: Full ROM, Normal Capillary Refill, Normal Inspection. absent: Joint Swelling, Pedal Edema - Back Exam Back Exam: NORMAL INSPECTION - Neurological Exam Neurological Exam: Alert, Awake, CN II-XII Intact, Normal Gait, Oriented x3 - Psychiatric Exam Psychiatric exam: Normal Affect, Normal Mood - Skin Skin Exam: Dry, Intact, Normal Color, Warm Assessment and Plan (1) Hematuria Assessment & Plan: xarelto and asa held Status: Acute (2) Hypovolemia Assessment & Plan: cont NS @ 75 c/hr Status: Acute (3) CHF exacerbation Assessment & Plan: cont bb and acei Status: Acute (4) Afib Status: Acute (5) Chronic hyponatremia Status: Acute (6) HTN (hypertension) Status: Acute (7) CAD (coronary artery disease) Status: Acute
[2018-12-13 05:39] LABS: BASO % 0.6 % (0.0-2.0); EOS # 0.1 K/uL (0.0-0.7); EOS % 2.4 % (0.0-4.0); HEMOGLOBIN 12.1 g/dL (12.0-18.0); LYMPH # 1.1 K/uL (1.0-4.3); LYMPH % 19.2 % (20.0-40.0); MEAN CORPUSCULAR HEMOGLOBIN 28.3 pg (27.0-31.0); MEAN CORPUSCULAR HGB CONC 33.3 g/dL (33.0-37.0); MEAN PLATELET VOLUME 8.2 fl (7.2-11.7); MONO # 0.7 K/uL (0.0-0.8); MONO % 12.4 % (0.0-10.0); NEUT # 3.7 K/uL (1.8-7.0); NEUT % 65.4 % (50.0-75.0); NRBC % 0.1 % (0.0-0.0); RBC 4.29 Mil/uL (4.40-5.90); RED CELL DISTRIBUTION WIDTH 14.1 % (11.5-14.5); WHITE BLOOD COUNT 5.6 K/uL (4.8-10.8)
[2018-12-13 05:41] LABS: INR 1.2; PROTHROMBIN TIME 13.6 Seconds (9.8-13.1)
[2018-12-13 05:43] LABS: PARTIAL THROMBOPLASTIN TIME 30.4 Seconds (25.6-37.1)
[2018-12-13 05:50] LABS: BLOOD UREA NITROGEN 18 mg/dl (9-20)
[2018-12-13 05:51] LABS: CALCIUM 8.7 mg/dL (8.4-10.2); GFR NON-AFRICAN AMERICAN > 60
--- NOTE | 2018-12-13 09:26 | CP.PCM.PN ---
<Belinda Meza - Last Filed: 12/13/18 13:24> Subjective - Date & Time of Evaluation Date of Evaluation: 12/13/18 Time of Evaluation: 12:55 - Subjective Subjective: Pt seen at bedside this morning. Feeling well, pt continues to have hematuria, xarelto and ASA still held. No difficulty urinating. Tolerating PO intake. Pt fluid restricted to 1000cc. Ambulating with PT. Denies fever, chills, chest pain, SOB, N/V,D/C. Objective - Vital Signs/Intake and Output Vital Signs (last 24 hours): Temp Pulse Resp BP Pulse Ox 98.1 F 64 18 135/71 97 12/13/18 08:06 12/13/18 08:25 12/13/18 08:06 12/13/18 08:06 12/13/18 08:06 Intake and Output: 12/13/18 12/13/18 06:59 18:59 Intake Total 1300 Output Total 1400 Balance -100 - Medications Medications: Current Medications Albuterol Sulfate (Albuterol 0.083% Inhal Hawa (2.5 Mg/3 Ml) Ud) 2.5 mg IH Q6H PRN PRN Reason: Shortness of Breath Carvedilol (Coreg) 25 mg PO Q12 [facility] Last Admin: 12/12/18 21:19 Dose: 25 mg Clopidogrel Bisulfate (Plavix) 75 mg PO DAILY [facility] Last Admin: 12/12/18 08:54 Dose: 75 mg Docusate Sodium (Colace) 100 mg PO DAILY [facility] Last Admin: 12/12/18 11:28 Dose: 100 mg Finasteride (Proscar) 5 mg PO DAILY [facility] Last Admin: 12/12/18 08:54 Dose: 5 mg Lisinopril (Zestril) 5 mg PO DAILY [facility] Last Admin: 12/12/18 08:53 Dose: 5 mg Rivaroxaban (Xarelto) 10 mg PO DAILY [facility]; Protocol Tamsulosin HCl (Flomax) 0.4 mg PO DAILY [facility] Last Admin: 12/12/18 08:54 Dose: 0.4 mg - Labs Labs: 12/13/18 04:35 12/13/18 04:35 PT 13.6 Seconds (9.8-13.1) H 12/13/18 04:35 INR 1.2 12/13/18 04:35 APTT 30.4 Seconds (25.6-37.1) 12/13/18 04:35 - Constitutional Appears: Non-toxic, No Acute Distress - Head Exam Head Exam: NORMAL INSPECTION - Eye Exam Eye Exam: EOMI - ENT Exam ENT Exam: Mucous Membranes Moist - Respiratory Exam Respiratory Exam: Clear to Ausculation Bilateral. absent: Rales, Rhonchi, Wheezes - Cardiovascular Exam Cardiovascular Exam: RRR, +S1, +S2 - GI/Abdominal Exam GI & Abdominal Exam: Soft, Normal Bowel Sounds. absent: Tenderness - Extremities Exam Extremities Exam: absent: Pedal Edema - Neurological Exam Neurological Exam: Alert, Awake, Oriented x3 Assessment and Plan - Assessment and Plan (Free Text) Assessment: Pt is a 78 yo M with hx of recent PCI 5 stents placed at [place] 1 mo ago, A fib, BPH, HTN presented to the ED with SOB, fatigue, feeling off, weakness and blurry vision admitted for CHF exacerbation. CAD, Suspected NSTEMI Acute 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% acute, improved Troponin x5 negative, repeat BNP 739 Patient had episode of severe SOB, agitation, restlessness, vomiting after admission and EKG was performed that showed A Fib and T waves, ST abnormalities. He was given extra 40 mg lasix IV, SL nitro and started on Heparin drip after initial bolus.He then started developing mild hematuria at night but with significantly improved clinical status since then. Heparin drip was continued at 10 ml/hr(dose was not increase and no extra bolus was given due to hematuria).heparin drip was then DCed. hematuria continues. Cardiology consulted- Dr. Moreno- [facility] appreciated C/w Coreg 25mg q12h, Lisinopril 5mg QD C/w Plavix Held ASA and Xarelto due to hematuria Blood cx no growth @5days PT/OT reccs- home PT with services, Home Nurse services Monitor VS, I/O's daily weights Hyponatremia likely due to the diuretics acute on chronic, improving Na 129 today D/C Lasix and Spironolactone Nephrology consulted- Dr. Spaulding-[facility] appreciated s/p Sodium tablet x2 dose Tolvaptan 15mg once Nephro reccs- Fluid restriction @1000ml per day F/u BMP in AM Hematuria prob due to antiplatelets and Heparin acute, bright red urine Began after resuming Xarelto 20mg QD Stopped Xarelto and ASA, c/w plavix Heparin stopped. Asymptomatic Monitor coags Urology consulted-Dr. Huff f/u reccs Urinary Retention likely due to Prostatic Enlargement chronic BPH c/w Finasteride 5mg QD and Tamsulosin 0.4mg QD A Fib, chronic with RVR Held Xarelto due to hematuria Diet Heart healthy DVT PPx S/P Heparin drip Plavix 75mg QD <eDbbie Mtz - Last Filed: 12/13/18 21:16> Objective - Vital Signs/Intake and Output Vital Signs (last 24 hours): Temp Pulse Resp BP Pulse Ox 98.9 F 95 H 18 120/83 99 12/13/18 20:06 12/13/18 20:06 12/13/18 20:06 12/13/18 20:06 12/13/18 20:06 Intake and Output: 12/13/18 12/14/18 18:59 06:59 Intake Total 240 Output Total 900 Balance -660 - Medications Medications: Current Medications Albuterol Sulfate (Albuterol 0.083% Inhal Hawa (2.5 Mg/3 Ml) Ud) 2.5 mg IH Q6H PRN PRN Reason: Shortness of Breath Carvedilol (Coreg) 25 mg PO Q12 [facility] Last Admin: 12/13/18 09:48 Dose: 25 mg Clopidogrel Bisulfate (Plavix) 75 mg PO DAILY [facility] Last Admin: 12/13/18 09:49 Dose: 75 mg Docusate Sodium (Colace) 100 mg PO DAILY [facility] Last Admin: 12/13/18 09:48 Dose: 100 mg Finasteride (Proscar) 5 mg PO DAILY [facility] Last Admin: 12/13/18 09:49 Dose: 5 mg Lisinopril (Zestril) 5 mg PO DAILY [facility] Last Admin: 12/13/18 09:49 Dose: 5 mg Rivaroxaban (Xarelto) 10 mg PO DAILY [facility]; Protocol Tamsulosin HCl (Flomax) 0.4 mg PO DAILY [facility] Last Admin: 12/13/18 09:49 Dose: 0.4 mg - Labs Labs: 12/13/18 04:35 12/13/18 04:35 PT 13.6 Seconds (9.8-13.1) H 12/13/18 04:35 INR 1.2 12/13/18 04:35 APTT 30.4 Seconds (25.6-37.1) 12/13/18 04:35 Attending/Attestation - Attestation I have personally seen and examined this patient.: Yes I have fully participated in the care of the patient.: Yes I have reviewed all pertinent clinical information, including history, physical exam and plan: Yes Notes (Text): agree with findings and plan as above.
--- NOTE | 2018-12-13 13:16 | CP.PCM.PN ---
Subjective - Date & Time of Evaluation Date of Evaluation: 12/13/18 Time of Evaluation: 13:14 - Subjective Subjective: gained 4 lbs in last 2 days na stable cl 95 clinically compensated still mild hematuria Objective - Vital Signs/Intake and Output Vital Signs (last 24 hours): Temp Pulse Resp BP Pulse Ox 98.7 F 68 18 114/77 98 12/13/18 12:13 12/13/18 12:13 12/13/18 12:13 12/13/18 12:13 12/13/18 12:13 Intake and Output: 12/13/18 12/13/18 06:59 18:59 Intake Total 1300 Output Total 1400 Balance -100 - Medications Medications: Current Medications Albuterol Sulfate (Albuterol 0.083% Inhal Hawa (2.5 Mg/3 Ml) Ud) 2.5 mg IH Q6H PRN PRN Reason: Shortness of Breath Carvedilol (Coreg) 25 mg PO Q12 [facility] Last Admin: 12/13/18 09:48 Dose: 25 mg Clopidogrel Bisulfate (Plavix) 75 mg PO DAILY [facility] Last Admin: 12/13/18 09:49 Dose: 75 mg Docusate Sodium (Colace) 100 mg PO DAILY [facility] Last Admin: 12/13/18 09:48 Dose: 100 mg Finasteride (Proscar) 5 mg PO DAILY [facility] Last Admin: 12/13/18 09:49 Dose: 5 mg Lisinopril (Zestril) 5 mg PO DAILY [facility] Last Admin: 12/13/18 09:49 Dose: 5 mg Rivaroxaban (Xarelto) 10 mg PO DAILY [facility]; Protocol Tamsulosin HCl (Flomax) 0.4 mg PO DAILY [facility] Last Admin: 12/13/18 09:49 Dose: 0.4 mg - Labs Labs: 12/13/18 04:35 12/13/18 04:35 PT 13.6 Seconds (9.8-13.1) H 12/13/18 04:35 INR 1.2 12/13/18 04:35 APTT 30.4 Seconds (25.6-37.1) 12/13/18 04:35 - Constitutional Appears: Well - Head Exam Head Exam: ATRAUMATIC, NORMAL INSPECTION, NORMOCEPHALIC - Eye Exam Eye Exam: EOMI, Normal appearance, PERRL Pupil Exam: NORMAL ACCOMODATION, PERRL - ENT Exam ENT Exam: Mucous Membranes Moist, Normal Exam - Neck Exam Neck Exam: Full ROM, Normal Inspection. absent: Lymphadenopathy - Respiratory Exam Respiratory Exam: Clear to Ausculation Bilateral, NORMAL BREATHING PATTERN - Cardiovascular Exam Cardiovascular Exam: REGULAR RHYTHM, +S1, +S2. absent: Murmur - GI/Abdominal Exam GI & Abdominal Exam: Soft, Normal Bowel Sounds. absent: Tenderness - Extremities Exam Extremities Exam: Full ROM, Normal Capillary Refill, Normal Inspection. absent: Joint Swelling, Pedal Edema - Back Exam Back Exam: NORMAL INSPECTION - Neurological Exam Neurological Exam: Alert, Awake, CN II-XII Intact, Normal Gait, Oriented x3 - Psychiatric Exam Psychiatric exam: Normal Affect, Normal Mood - Skin Skin Exam: Dry, Intact, Normal Color, Warm Assessment and Plan (1) Hematuria Assessment & Plan: urology eval asa / xarelto on hold Status: Acute (2) Hypovolemia Assessment & Plan: normovolemic now Status: Acute (3) CHF exacerbation Assessment & Plan: stable cont bb, acei Status: Acute (4) Afib Status: Acute (5) Chronic hyponatremia Status: Acute (6) HTN (hypertension) Status: Acute (7) CAD (coronary artery disease) Status: Acute
[2018-12-13] MEDS ORDERED: Tolvaptan 15 MG TAB PO ONE (14:43)
--- NOTE | 2018-12-13 14:47 | CP.PCM.PN ---
Subjective - Date & Time of Evaluation Date of Evaluation: 12/13/18 Time of Evaluation: 14:46 - Subjective Subjective: Patient feeling good Vital signs noted to be stable Serum sodium trending down. DC all IV fluid Objective - Vital Signs/Intake and Output Vital Signs (last 24 hours): Temp Pulse Resp BP Pulse Ox 98.7 F 68 18 114/77 98 12/13/18 12:13 12/13/18 12:13 12/13/18 12:13 12/13/18 12:13 12/13/18 12:13 Intake and Output: 12/13/18 12/13/18 06:59 18:59 Intake Total 1300 Output Total 1400 Balance -100 - Medications Medications: Current Medications Albuterol Sulfate (Albuterol 0.083% Inhal Hawa (2.5 Mg/3 Ml) Ud) 2.5 mg IH Q6H PRN PRN Reason: Shortness of Breath Carvedilol (Coreg) 25 mg PO Q12 [facility] Last Admin: 12/13/18 09:48 Dose: 25 mg Clopidogrel Bisulfate (Plavix) 75 mg PO DAILY [facility] Last Admin: 12/13/18 09:49 Dose: 75 mg Docusate Sodium (Colace) 100 mg PO DAILY [facility] Last Admin: 12/13/18 09:48 Dose: 100 mg Finasteride (Proscar) 5 mg PO DAILY [facility] Last Admin: 12/13/18 09:49 Dose: 5 mg Lisinopril (Zestril) 5 mg PO DAILY [facility] Last Admin: 12/13/18 09:49 Dose: 5 mg Rivaroxaban (Xarelto) 10 mg PO DAILY [facility]; Protocol Tamsulosin HCl (Flomax) 0.4 mg PO DAILY [facility] Last Admin: 12/13/18 09:49 Dose: 0.4 mg Tolvaptan (Samsca) 15 mg PO ONCE ONE Stop: 12/13/18 14:44 - Labs Labs: 12/13/18 04:35 12/13/18 04:35 PT 13.6 Seconds (9.8-13.1) H 12/13/18 04:35 INR 1.2 12/13/18 04:35 APTT 30.4 Seconds (25.6-37.1) 12/13/18 04:35 - Constitutional Appears: No Acute Distress - Eye Exam Eye Exam: Conjunctival injection - ENT Exam ENT Exam: Mucous Membranes Moist - Neck Exam Neck Exam: absent: Lymphadenopathy - Respiratory Exam Respiratory Exam: NORMAL BREATHING PATTERN. absent: Chest Wall Tenderness - Cardiovascular Exam Cardiovascular Exam: absent: Gallop, JVD, Rubs - GI/Abdominal Exam GI & Abdominal Exam: Soft, Normal Bowel Sounds - Extremities Exam Extremities Exam: absent: Calf Tenderness - Back Exam Back Exam: absent: CVA tenderness (L), CVA tenderness (R) - Neurological Exam Neurological Exam: Alert - Psychiatric Exam Psychiatric exam: Normal Affect - Skin Skin Exam: absent: Cyanosis Assessment and Plan (1) CHF exacerbation Assessment & Plan: Congestive cardiomyopathy with ejection fraction 20-25% reported by the cardiology Persistent hyponatremia Atrial fibrillation H/O post CABG Recommendation Serum sodium trending down again 128 Give Samsca 15 mg Monitor serum sodium not to rise more than a milliequivalent or so in the next 24 hours to repeat BMP later on in about 8 hours from now and tomorrow morning Status: Acute (2) Chronic hyponatremia Status: Acute
[2018-12-14 09:32] LABS: BASO % 0.7 % (0.0-2.0); EOS # 0.1 K/uL (0.0-0.7); EOS % 1.7 % (0.0-4.0); HEMOGLOBIN 12.8 g/dL (12.0-18.0); LYMPH # 1.1 K/uL (1.0-4.3); LYMPH % 19.4 % (20.0-40.0); MEAN CELL VOLUME 85.2 fl (80.0-94.0); MEAN CORPUSCULAR HEMOGLOBIN 28.1 pg (27.0-31.0); MEAN PLATELET VOLUME 8.4 fl (7.2-11.7); MONO # 0.7 K/uL (0.0-0.8); MONO % 12.1 % (0.0-10.0); NEUT # 3.8 K/uL (1.8-7.0); NEUT % 66.1 % (50.0-75.0); RBC 4.55 Mil/uL (4.40-5.90); RED CELL DISTRIBUTION WIDTH 14.3 % (11.5-14.5); WHITE BLOOD COUNT 5.8 K/uL (4.8-10.8)
[2018-12-14 09:53] LABS: BLOOD UREA NITROGEN 17 mg/dl (9-20); CALCIUM 8.9 mg/dL (8.4-10.2); GFR NON-AFRICAN AMERICAN > 60
--- NOTE | 2018-12-14 12:10 | CP.PCM.PN ---
<Belinda Meza - Last Filed: 12/14/18 12:29> Subjective - Date & Time of Evaluation Date of Evaluation: 12/14/18 Time of Evaluation: 12:30 - Subjective Subjective: Pt seen at bedside this morning. Feeling well, pt's hematuria has resolved today, urine tea colored, No difficulty urinating. Tolerating PO intake. Pt fluid restricted to 1000cc. Had 6lb weight loss since yesterday. Has not been participating with PT will today. Denies fever, chills, chest pain, SOB, N/V,D/C. Objective - Vital Signs/Intake and Output Vital Signs (last 24 hours): Temp Pulse Resp BP Pulse Ox 98.1 F 90 18 114/78 95 12/14/18 11:50 12/14/18 11:50 12/14/18 11:50 12/14/18 11:50 12/14/18 11:50 Intake and Output: 12/14/18 12/14/18 06:59 18:59 Intake Total 240 120 Output Total 900 300 Balance -660 -180 - Medications Medications: Current Medications Albuterol Sulfate (Albuterol 0.083% Inhal Hawa (2.5 Mg/3 Ml) Ud) 2.5 mg IH Q6H PRN PRN Reason: Shortness of Breath Carvedilol (Coreg) 25 mg PO Q12 [facility] Last Admin: 12/14/18 10:00 Dose: 25 mg Clopidogrel Bisulfate (Plavix) 75 mg PO DAILY [facility] Last Admin: 12/14/18 10:00 Dose: 75 mg Docusate Sodium (Colace) 100 mg PO DAILY [facility] Last Admin: 12/14/18 09:59 Dose: 100 mg Finasteride (Proscar) 5 mg PO DAILY [facility] Last Admin: 12/14/18 10:00 Dose: 5 mg Lisinopril (Zestril) 5 mg PO DAILY [facility] Last Admin: 12/14/18 10:01 Dose: 5 mg Rivaroxaban (Xarelto) 10 mg PO DAILY [facility]; Protocol Tamsulosin HCl (Flomax) 0.4 mg PO DAILY [facility] Last Admin: 12/14/18 10:00 Dose: 0.4 mg - Labs Labs: 12/14/18 08:05 12/14/18 08:05 PT 13.6 Seconds (9.8-13.1) H 12/13/18 04:35 INR 1.2 12/13/18 04:35 APTT 30.4 Seconds (25.6-37.1) 12/13/18 04:35 - Constitutional Appears: Non-toxic, No Acute Distress - Head Exam Head Exam: ATRAUMATIC, NORMAL INSPECTION - Eye Exam Eye Exam: EOMI - ENT Exam ENT Exam: Mucous Membranes Moist - Respiratory Exam Respiratory Exam: Clear to Ausculation Bilateral - Cardiovascular Exam Cardiovascular Exam: RRR, +S1, +S2 - GI/Abdominal Exam GI & Abdominal Exam: Soft. absent: Tenderness - Extremities Exam Extremities Exam: Normal Inspection. absent: Pedal Edema - Neurological Exam Neurological Exam: Alert, Awake, Oriented x3 Assessment and Plan - Assessment and Plan (Free Text) Assessment: Pt is a 78 yo M with hx of recent PCI 5 stents placed at [place] 1 mo ago, A fib, BPH, HTN presented to the ED with SOB, fatigue, feeling off, weakness and blurry vision admitted for CHF exacerbation. CAD, Suspected NSTEMI Acute 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% acute, improved Troponin x5 negative, repeat BNP 739 Patient had episode of severe SOB, agitation, restlessness, vomiting after admission and EKG was performed that showed A Fib and T waves, ST abnormalities. He was given extra 40 mg lasix IV, SL nitro and started on Heparin drip after initial bolus.He then started developing mild hematuria at night but with significantly improved clinical status since then. Heparin drip was continued at 10 ml/hr(dose was not increase and no extra bolus was given due to hematuria).heparin drip was then DCed. hematuria resolved Cardiology consulted- Dr. Moreno- [facility] appreciated C/w Coreg 25mg q12h, Lisinopril 5mg QD C/w Plavix Held ASA and Xarelto due to hematuria Blood cx no growth @5days PT/OT reccs- home PT with services, Home Nurse services Psych consulted-Maurice Anjel- lives alone, possible depression/anxiety Monitor VS, I/O's daily weights (lost 6lbs since yesterday) Hyponatremia likely due to the diuretics acute on chronic, improving Na 130 today D/C Lasix and Spironolactone Nephrology consulted- Dr. Spaulding-[facility] appreciated s/p Sodium tablet x2 dose s/p Tolvaptan 15mg x2 dose Nephro reccs- Fluid restriction @1000ml per day, monitor sodium without rise of more than a MEQ in next 24hs F/u BMP in AM Hematuria prob due to antiplatelets and Heparin acute, resolving, tea colored Began after Xarelto started 1 month ago Held Xarelto and ASA still on plavix Heparin stopped. Asymptomatic Monitor coags Urology consulted-Dr. Quinones f/u reccs Urinary Retention likely due to Prostatic Enlargement chronic BPH c/w Finasteride 5mg QD and Tamsulosin 0.4mg QD A Fib, chronic with RVR Held Xarelto due to hematuria Diet Heart healthy DVT PPx S/P Heparin drip Plavix 75mg QD <Monse Miller - Last Filed: 12/14/18 15:43> Objective - Vital Signs/Intake and Output Vital Signs (last 24 hours): Temp Pulse Resp BP Pulse Ox 98.1 F 88 18 114/78 98 12/14/18 11:50 12/14/18 14:38 12/14/18 11:50 12/14/18 11:50 12/14/18 14:38 Intake and Output: 12/14/18 12/14/18 06:59 18:59 Intake Total 240 120 Output Total 900 300 Balance -660 -180 - Medications Medications: Current Medications Albuterol Sulfate (Albuterol 0.083% Inhal Hawa (2.5 Mg/3 Ml) Ud) 2.5 mg IH Q6H PRN PRN Reason: Shortness of Breath Carvedilol (Coreg) 25 mg PO Q12 [facility] Last Admin: 12/14/18 10:00 Dose: 25 mg Clopidogrel Bisulfate (Plavix) 75 mg PO DAILY [facility] Last Admin: 12/14/18 10:00 Dose: 75 mg Docusate Sodium (Colace) 100 mg PO DAILY [facility] Last Admin: 12/14/18 09:59 Dose: 100 mg Finasteride (Proscar) 5 mg PO DAILY [facility] Last Admin: 12/14/18 10:00 Dose: 5 mg Lisinopril (Zestril) 5 mg PO DAILY [facility] Last Admin: 12/14/18 10:01 Dose: 5 mg Rivaroxaban (Xarelto) 10 mg PO DAILY [facility]; Protocol Tamsulosin HCl (Flomax) 0.4 mg PO DAILY [facility] Last Admin: 12/14/18 10:00 Dose: 0.4 mg - Labs Labs: 12/14/18 08:05 12/14/18 08:05 PT 13.6 Seconds (9.8-13.1) H 12/13/18 04:35 INR 1.2 12/13/18 04:35 APTT 30.4 Seconds (25.6-37.1) 12/13/18 04:35 Attending/Attestation - Attestation I have personally seen and examined this patient.: Yes I have fully participated in the care of the patient.: Yes I have reviewed all pertinent clinical information, including history, physical exam and plan: Yes Notes (Text): 12/14/18 15:41 CAD, ACS ruled out Acute 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% Ischemic Cardiomyopathy Hyponatremia likely due to the diuretics A Fib, chronic with RVR Hematuria prob due to antiplatelets and Heparin Urinary Retention likely due to Prostatic Enlargement - Troponin negative - d/c Lasix IV, and Aldactone due to hyponatremia - cont low dose Lisinopril 5 mg daily and Coreg 25 mg q 12 - cont Plavix ( pt has stent in place) -d/c ASA and Xarelto due to Hematuria - Urology consult -cont Flomax and Proscar, Urinary retention resolved - Cardio consult- Dr Moreno -Sodium dropped to 123, improved to 130 after Samsca and holdning of diuretics - Fluid restriction to 800ml - Nephrology consult- discussed with Dr Spaulding
--- NOTE | 2018-12-14 22:57 | CP.PCM.PN ---
Subjective - Date & Time of Evaluation Date of Evaluation: 12/14/18 Time of Evaluation: 22:55 - Subjective Subjective: renal follow up note no events overnight vitals stable heent normal op moist no jvd s1s2 present b/l air entry equal abd soft skin normal ao times 3 A&P: Congestive cardiomyopathy with ejection fraction 20-25% reported by the car diology Persistent hyponatremia Atrial fibrillation H/O post CABG -sodium is better, no samsca today diuretics per cards monitor intake check bmp tomorrow Objective - Vital Signs/Intake and Output Vital Signs (last 24 hours): Temp Pulse Resp BP Pulse Ox 98.3 F 70 18 124/73 96 12/14/18 19:57 12/14/18 21:09 12/14/18 19:57 12/14/18 21:09 12/14/18 19:57 Intake and Output: 12/14/18 12/15/18 18:59 06:59 Intake Total 120 Output Total 300 Balance -180 - Medications Medications: Current Medications Albuterol Sulfate (Albuterol 0.083% Inhal Hawa (2.5 Mg/3 Ml) Ud) 2.5 mg IH Q6H PRN PRN Reason: Shortness of Breath Carvedilol (Coreg) 25 mg PO Q12 [facility] Last Admin: 12/14/18 21:09 Dose: 25 mg Clopidogrel Bisulfate (Plavix) 75 mg PO DAILY [facility] Last Admin: 12/14/18 10:00 Dose: 75 mg Docusate Sodium (Colace) 100 mg PO DAILY [facility] Last Admin: 12/14/18 09:59 Dose: 100 mg Finasteride (Proscar) 5 mg PO DAILY [facility] Last Admin: 12/14/18 10:00 Dose: 5 mg Lisinopril (Zestril) 5 mg PO DAILY [facility] Last Admin: 12/14/18 10:01 Dose: 5 mg Tamsulosin HCl (Flomax) 0.4 mg PO DAILY [facility] Last Admin: 12/14/18 10:00 Dose: 0.4 mg - Labs Labs: 12/14/18 08:05 12/14/18 08:05 PT 13.6 Seconds (9.8-13.1) H 12/13/18 04:35 INR 1.2 12/13/18 04:35 APTT 30.4 Seconds (25.6-37.1) 12/13/18 04:35
[2018-12-15 06:27] LABS: BASO % 0.3 % (0.0-2.0); EOS # 0.2 K/uL (0.0-0.7); EOS % 2.6 % (0.0-4.0); HEMOGLOBIN 12.5 g/dL (12.0-18.0); LYMPH # 1.4 K/uL (1.0-4.3); LYMPH % 18.5 % (20.0-40.0); MEAN CELL VOLUME 84.3 fl (80.0-94.0); MEAN CORPUSCULAR HEMOGLOBIN 28.2 pg (27.0-31.0); MEAN CORPUSCULAR HGB CONC 33.5 g/dL (33.0-37.0); MEAN PLATELET VOLUME 8.4 fl (7.2-11.7); MONO # 0.7 K/uL (0.0-0.8); NEUT # 5.1 K/uL (1.8-7.0); NEUT % 68.6 % (50.0-75.0); RBC 4.41 Mil/uL (4.40-5.90); RED CELL DISTRIBUTION WIDTH 14.3 % (11.5-14.5); WHITE BLOOD COUNT 7.4 K/uL (4.8-10.8)
[2018-12-15 06:43] LABS: BLOOD UREA NITROGEN 24 mg/dl (9-20); CALCIUM 8.7 mg/dL (8.4-10.2); GFR NON-AFRICAN AMERICAN > 60
[2018-12-15] MEDS ORDERED: Tolvaptan 15 MG TAB PO ONE (09:46)
--- NOTE | 2018-12-15 13:24 | CP.PCM.PN ---
Subjective - Date & Time of Evaluation Date of Evaluation: 12/15/18 Time of Evaluation: 11:00 - Subjective Subjective: Denies CP no SOB tachycardia on exertion no abd pain hematuria cleared up no abd pain voiding freely was not able to sleep last night discussed PT recommendation for TCU - pt prefers to go home -oscarjeanie arrange for Home PT and RN as pt lives alone Objective - Vital Signs/Intake and Output Vital Signs (last 24 hours): Temp Pulse Resp BP Pulse Ox 98.2 F 71 18 138/87 99 12/15/18 08:00 12/15/18 09:02 12/15/18 08:00 12/15/18 09:02 12/15/18 08:00 Intake and Output: 12/15/18 12/15/18 06:59 18:59 Intake Total 1000 Output Total 700 Balance 300 - Medications Medications: Current Medications Albuterol Sulfate (Albuterol 0.083% Inhal Hawa (2.5 Mg/3 Ml) Ud) 2.5 mg IH Q6H PRN PRN Reason: Shortness of Breath Carvedilol (Coreg) 25 mg PO Q12 [facility] Last Admin: 12/15/18 09:01 Dose: 25 mg Clopidogrel Bisulfate (Plavix) 75 mg PO DAILY [facility] Last Admin: 12/15/18 09:02 Dose: 75 mg Docusate Sodium (Colace) 100 mg PO DAILY [facility] Last Admin: 12/15/18 09:01 Dose: 100 mg Finasteride (Proscar) 5 mg PO DAILY [facility] Last Admin: 12/15/18 09:02 Dose: 5 mg Lisinopril (Zestril) 5 mg PO DAILY [facility] Last Admin: 12/15/18 09:02 Dose: 5 mg Tamsulosin HCl (Flomax) 0.4 mg PO DAILY [facility] Last Admin: 12/15/18 09:01 Dose: 0.4 mg - Labs Labs: 12/15/18 05:36 12/15/18 05:36 PT 13.6 Seconds (9.8-13.1) H 12/13/18 04:35 INR 1.2 12/13/18 04:35 APTT 30.4 Seconds (25.6-37.1) 12/13/18 04:35 - Constitutional Appears: Chronically Ill - Head Exam Head Exam: NORMAL INSPECTION, NORMOCEPHALIC - Eye Exam Eye Exam: EOMI, Normal appearance Pupil Exam: NORMAL ACCOMODATION - ENT Exam ENT Exam: Mucous Membranes Moist, Normal External Ear Exam - Neck Exam Neck Exam: Full ROM. absent: Meningismus - Respiratory Exam Respiratory Exam: NORMAL BREATHING PATTERN. absent: Respiratory Distress - Cardiovascular Exam Cardiovascular Exam: Irregular Rhythm, +S1, +S2 - GI/Abdominal Exam GI & Abdominal Exam: Soft, Normal Bowel Sounds. absent: Tenderness - Extremities Exam Extremities Exam: Full ROM, Normal Capillary Refill. absent: Calf Tenderness - Back Exam Back Exam: Full ROM. absent: CVA tenderness (L), CVA tenderness (R) - Neurological Exam Neurological Exam: Alert, Awake, CN II-XII Intact, Oriented x3 Neuro motor strength exam: Left Upper Extremity: 5, Right Upper Extremity: 5, Left Lower Extremity: 5, Right Lower Extremity: 5 - Psychiatric Exam Psychiatric exam: Flat Affect, Normal Mood - Skin Skin Exam: Dry, Normal Color, Warm Assessment and Plan - Assessment and Plan (Free Text) Plan: CAD, ACS ruled out - Troponin x 3negative - Pt has hx of Stent placement - 2 mos ago - cont Plavix - hold ASA and Xarelto due to hematuria - cont Coreg, and Lisinopril -Cardio consulted - rec to cont medical mgt Acute 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%, now improved - cont Coreg and LIsinopril - water restriction - of Lasix and Aldactone due to hyponatremia Ischemic Cardiomyopathy cont Coreg and DIDIER Hyponatremia likely due to the diuretics - received Samsca - Na now 129 - Nephro consulted - off diuretics - restrict free water A Fib, chronic with RVR cont Coreg , hold Xarelto due to hematuria Hematuria prob due to antiplatelets and Heparin - hold ASA and Xarelto - hematuria cleared up - Urology consulted- plan for Cystoscopy in am -NPO from [place], hold Plavix in am Urinary Retention likely due to Prostatic Enlargement resolved -cont Proscar and Flomax Deconditioning - PT rec TCU , pt refused -wants to 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
[2018-12-16 05:39] LABS: BLOOD UREA NITROGEN 19 mg/dl (9-20); CALCIUM 8.6 mg/dL (8.4-10.2); GFR NON-AFRICAN AMERICAN > 60
--- NOTE | 2018-12-16 09:39 | CP.PCM.PN ---
Subjective - Date & Time of Evaluation Date of Evaluation: 12/16/18 Time of Evaluation: 09:42 - Subjective Subjective: Patient awake and conscious feeling much better Patient sleeping flat in the bed Vital signs stable Objective - Vital Signs/Intake and Output Vital Signs (last 24 hours): Temp Pulse Resp BP Pulse Ox 98.4 F 68 18 150/99 H 98 12/16/18 08:02 12/16/18 09:14 12/16/18 08:02 12/16/18 09:14 12/16/18 08:02 Intake and Output: 12/16/18 12/16/18 06:59 18:59 Intake Total 500 Output Total 700 Balance -200 - Medications Medications: Current Medications Albuterol Sulfate (Albuterol 0.083% Inhal Hawa (2.5 Mg/3 Ml) Ud) 2.5 mg IH Q6H PRN PRN Reason: Shortness of Breath Carvedilol (Coreg) 25 mg PO Q12 [facility] Last Admin: 12/16/18 09:13 Dose: 25 mg Clopidogrel Bisulfate (Plavix) 75 mg PO DAILY [facility] Last Admin: 12/15/18 09:02 Dose: 75 mg Docusate Sodium (Colace) 100 mg PO DAILY [facility] Last Admin: 12/15/18 09:01 Dose: 100 mg Finasteride (Proscar) 5 mg PO DAILY [facility] Last Admin: 12/16/18 09:12 Dose: 5 mg Lisinopril (Zestril) 5 mg PO DAILY [facility] Last Admin: 12/16/18 09:14 Dose: 5 mg Tamsulosin HCl (Flomax) 0.4 mg PO DAILY [facility] Last Admin: 12/15/18 09:01 Dose: 0.4 mg - Labs Labs: 12/15/18 05:36 12/16/18 04:30 PT 13.6 Seconds (9.8-13.1) H 12/13/18 04:35 INR 1.2 12/13/18 04:35 APTT 30.4 Seconds (25.6-37.1) 12/13/18 04:35 - Constitutional Appears: No Acute Distress - Eye Exam Eye Exam: Conjunctival injection - ENT Exam ENT Exam: Mucous Membranes Moist - Neck Exam Neck Exam: absent: Lymphadenopathy - Respiratory Exam Respiratory Exam: NORMAL BREATHING PATTERN. absent: Chest Wall Tenderness - Cardiovascular Exam Cardiovascular Exam: absent: Gallop, JVD, Rubs - GI/Abdominal Exam GI & Abdominal Exam: Soft, Normal Bowel Sounds - Extremities Exam Extremities Exam: absent: Calf Tenderness - Back Exam Back Exam: absent: CVA tenderness (L), CVA tenderness (R) - Neurological Exam Neurological Exam: Alert - Skin Skin Exam: absent: Cyanosis Assessment and Plan (1) CHF exacerbation Assessment & Plan: Assessment & Plan: Congestive cardiomyopathy with ejection fraction 20-25% reported by the cardiology Persistent hyponatremia Atrial fibrillation H/O post CABG Recommendation Sodium around 131 , patient needs strict fluid restriction 900 cc in 24 hours Status: Acute (2) Chronic hyponatremia Status: Acute
--- NOTE | 2018-12-16 09:41 | CP.PCM.PN ---
Subjective - Date & Time of Evaluation Date of Evaluation: 12/16/18 Time of Evaluation: 09:39 - Subjective Subjective: cystoscopy today antiplatelet and xarelto on hold urine cleared up tachycardic on exertion Objective - Vital Signs/Intake and Output Vital Signs (last 24 hours): Temp Pulse Resp BP Pulse Ox 98.4 F 68 18 150/99 H 98 12/16/18 08:02 12/16/18 09:14 12/16/18 08:02 12/16/18 09:14 12/16/18 08:02 Intake and Output: 12/16/18 12/16/18 06:59 18:59 Intake Total 500 Output Total 700 Balance -200 - Medications Medications: Current Medications Albuterol Sulfate (Albuterol 0.083% Inhal Hawa (2.5 Mg/3 Ml) Ud) 2.5 mg IH Q6H PRN PRN Reason: Shortness of Breath Carvedilol (Coreg) 25 mg PO Q12 [facility] Last Admin: 12/16/18 09:13 Dose: 25 mg Clopidogrel Bisulfate (Plavix) 75 mg PO DAILY [facility] Last Admin: 12/15/18 09:02 Dose: 75 mg Docusate Sodium (Colace) 100 mg PO DAILY [facility] Last Admin: 12/15/18 09:01 Dose: 100 mg Finasteride (Proscar) 5 mg PO DAILY [facility] Last Admin: 12/16/18 09:12 Dose: 5 mg Lisinopril (Zestril) 5 mg PO DAILY [facility] Last Admin: 12/16/18 09:14 Dose: 5 mg Tamsulosin HCl (Flomax) 0.4 mg PO DAILY [facility] Last Admin: 12/15/18 09:01 Dose: 0.4 mg - Labs Labs: 12/15/18 05:36 12/16/18 04:30 PT 13.6 Seconds (9.8-13.1) H 12/13/18 04:35 INR 1.2 12/13/18 04:35 APTT 30.4 Seconds (25.6-37.1) 12/13/18 04:35 - Constitutional Appears: Well - Head Exam Head Exam: ATRAUMATIC, NORMAL INSPECTION, NORMOCEPHALIC - Eye Exam Eye Exam: EOMI, Normal appearance, PERRL Pupil Exam: NORMAL ACCOMODATION, PERRL - ENT Exam ENT Exam: Mucous Membranes Moist, Normal Exam - Neck Exam Neck Exam: Full ROM, Normal Inspection. absent: Lymphadenopathy - Respiratory Exam Respiratory Exam: Clear to Ausculation Bilateral, NORMAL BREATHING PATTERN - Cardiovascular Exam Cardiovascular Exam: REGULAR RHYTHM, +S1, +S2. absent: Murmur - GI/Abdominal Exam GI & Abdominal Exam: Soft, Normal Bowel Sounds. absent: Tenderness - Extremities Exam Extremities Exam: Full ROM, Normal Capillary Refill, Normal Inspection. absent: Joint Swelling, Pedal Edema - Back Exam Back Exam: NORMAL INSPECTION - Neurological Exam Neurological Exam: Alert, Awake, CN II-XII Intact, Normal Gait, Oriented x3 - Psychiatric Exam Psychiatric exam: Normal Affect, Normal Mood - Skin Skin Exam: Dry, Intact, Normal Color, Warm Assessment and Plan (1) Hematuria Status: Acute (2) Hypovolemia Assessment & Plan: diuretics on hold Status: Acute (3) CHF exacerbation Assessment & Plan: stable cont coreg and lisinopril Status: Acute (4) Afib Status: Acute (5) Chronic hyponatremia Status: Acute (6) HTN (hypertension) Status: Acute (7) CAD (coronary artery disease) Status: Acute
--- NOTE | 2018-12-16 09:56 | CP.PCM.PN ---
Objective - Vital Signs/Intake and Output Vital Signs (last 24 hours): Temp Pulse Resp BP Pulse Ox 98.4 F 68 18 150/99 H 98 12/16/18 08:02 12/16/18 09:14 12/16/18 08:02 12/16/18 09:14 12/16/18 08:02 Intake and Output: 12/16/18 12/16/18 06:59 18:59 Intake Total 500 Output Total 700 Balance -200 - Medications Medications: Current Medications Albuterol Sulfate (Albuterol 0.083% Inhal Hawa (2.5 Mg/3 Ml) Ud) 2.5 mg IH Q6H PRN PRN Reason: Shortness of Breath Carvedilol (Coreg) 25 mg PO Q12 [facility] Last Admin: 12/16/18 09:13 Dose: 25 mg Clopidogrel Bisulfate (Plavix) 75 mg PO DAILY [facility] Last Admin: 12/15/18 09:02 Dose: 75 mg Docusate Sodium (Colace) 100 mg PO DAILY [facility] Last Admin: 12/15/18 09:01 Dose: 100 mg Finasteride (Proscar) 5 mg PO DAILY [facility] Last Admin: 12/16/18 09:12 Dose: 5 mg Lisinopril (Zestril) 5 mg PO DAILY [facility] Last Admin: 12/16/18 09:14 Dose: 5 mg Tamsulosin HCl (Flomax) 0.4 mg PO DAILY [facility] Last Admin: 12/15/18 09:01 Dose: 0.4 mg - Labs Labs: 12/15/18 05:36 12/16/18 04:30 PT 13.6 Seconds (9.8-13.1) H 12/13/18 04:35 INR 1.2 12/13/18 04:35 APTT 30.4 Seconds (25.6-37.1) 12/13/18 04:35
--- NOTE | 2018-12-16 14:12 | CP.PCM.DIS ---
<Belinda Meza - Last Filed: 12/16/18 17:13> Provider - Provider Date of Admission: 12/06/18 06:57 Attending physician: Debbie Mtz DO Primary care physician: [facility] Cardio: Josh Consults: 12/06/18 16:33 Case Management Referral Routine Comment: Physician Instructions: Reason For Exam: lives alone at home Reason for Referral: Discharge Planning Social Work Referral Routine Comment: Lives alone Physician Instructions: Reason For Exam: Lives alone at home 12/08/18 14:21 Cardiology Consult Routine Comment: Consulting Provider: Joey Moreno Consulting Physician: Joey Moreno Reason for Consult: CAD, CHF exacerb, A Fib 12/08/18 18:33 Palliative Care Consult Routine Comment: Consulting Provider: Nusrat Maynard Physician Instructions: no surrogate decision maker , no advance directive Reason For Exam: CAD, CHF, A Fib 12/10/18 08:21 Nephrology Consult Routine Comment: Consulting Provider: Darnell Spaulding Consulting Physician: Darnell Spaulding Reason for Consult: Hyponatremia 12/13/18 13:21 Urology Consult Routine Comment: Consulting Provider: Tr Quinones Consulting Physician: Tr Quinones Reason for Consult: Hematuria 12/14/18 12:43 Psychiatry Consult Routine Comment: Consulting Provider: Maurice Hobbs Consulting Physician: Maurice Hobbs Reason for Consult: Lives alone, evaluate for depression/anxiety Time Spent in preparation of Discharge (in minutes): 10 Diagnosis - Discharge Diagnosis (1) Afib Status: Acute Comment: Chronic. c/w plavix. Hold Xarelto and ASA (2) CAD (coronary artery disease) Status: Acute Comment: Chronic. c/w plavix. Hold Xarelto and ASA (3) CHF exacerbation Status: Acute Comment: Acute, resolved (4) Hematuria Status: Acute Comment: Acute, resolved (5) BPH (benign prostatic hyperplasia) Status: Acute Comment: Chronic. c/w BPH meds (6) Chronic hyponatremia Status: Acute Comment: Chronic. resolved NA 131 (7) HTN (hypertension) Status: Acute Comment: chronic. c/w home meds Hospital Course - Lab Results Lab Results: Micro Results 12/06/18 06:11 Blood Blood Culture - Final NO GROWTH AFTER 5 DAYS 12/06/18 06:11 Blood Gram Stain - Final TEST NOT PERFORMED 12/06/18 05:41 Blood Blood Culture - Final NO GROWTH AFTER 5 DAYS 12/06/18 05:41 Blood Gram Stain - Final TEST NOT PERFORMED Most Recent Lab Values WBC 7.4 K/uL (4.8-10.8) 12/15/18 05:36 RBC 4.41 Mil/uL (4.40-5.90) 12/15/18 05:36 Hgb 12.5 g/dL (12.0-18.0) 12/15/18 05:36 Hct 37.2 % (35.0-51.0) 12/15/18 05:36 MCV 84.3 fl (80.0-94.0) 12/15/18 05:36 MCH 28.2 pg (27.0-31.0) 12/15/18 05:36 MCHC 33.5 g/dL (33.0-37.0) 12/15/18 05:36 RDW 14.3 % (11.5-14.5) 12/15/18 05:36 Plt Count 199 K/uL (130-400) 12/15/18 05:36 MPV 8.4 fl (7.2-11.7) 12/15/18 05:36 Neut % (Auto) 68.6 % (50.0-75.0) 12/15/18 05:36 Lymph % (Auto) 18.5 % (20.0-40.0) L 12/15/18 05:36 Adams % (Auto) 10.0 % (0.0-10.0) 12/15/18 05:36 Eos % (Auto) 2.6 % (0.0-4.0) 12/15/18 05:36 Baso % (Auto) 0.3 % (0.0-2.0) 12/15/18 05:36 Neut # (Auto) 5.1 K/uL (1.8-7.0) 12/15/18 05:36 Lymph # (Auto) 1.4 K/uL (1.0-4.3) 12/15/18 05:36 Adams # (Auto) 0.7 K/uL (0.0-0.8) 12/15/18 05:36 Eos # (Auto) 0.2 K/uL (0.0-0.7) 12/15/18 05:36 Baso # (Auto) 0.0 K/uL (0.0-0.2) 12/15/18 05:36 PT 13.6 Seconds (9.8-13.1) H 12/13/18 04:35 INR 1.2 12/13/18 04:35 APTT 30.4 Seconds (25.6-37.1) 12/13/18 04:35 pCO2 26 mm/Hg (35-45) L 12/06/18 05:35 pO2 117 mm/Hg (80-100) H 12/06/18 05:35 HCO3 22.9 mmol/L (21-28) 12/06/18 05:35 ABG pH 7.48 (7.35-7.45) H 12/06/18 05:35 ABG Total CO2 20.2 mmol/L (22-28) L 12/06/18 05:35 ABG O2 Saturation 100.7 % (95-98) H 12/06/18 05:35 ABG Base Excess -2.5 mmol/L (-2.0-3.0) L 12/06/18 05:35 Moe Test Yes 12/06/18 05:35 ABG Potassium 3.4 mmol/L (3.6-5.2) L 12/06/18 05:35 A-a O2 Difference 107.0 mm/Hg 12/06/18 05:35 Sodium 126.0 mmol/L (132-148) L 12/06/18 05:35 Chloride 96.0 mmol/L (98-107) L 12/06/18 05:35 Glucose 222 mg/dL (75-110) H 12/06/18 05:35 Lactate 3.0 mmol/L (0.7-2.1) H 12/06/18 05:35 FiO2 36.0 % 12/06/18 05:35 Sodium 131 mmol/l (132-148) L 12/16/18 04:30 Potassium 3.9 MMOL/L (3.6-5.0) 12/16/18 04:30 Chloride 95 mmol/L (98-107) L 12/16/18 04:30 Carbon Dioxide 26 mmol/L (22-30) 12/16/18 04:30 Anion Gap 14 (10-20) 12/16/18 04:30 BUN 19 mg/dl (9-20) 12/16/18 04:30 Creatinine 0.7 mg/dl (0.8-1.5) L 12/16/18 04:30 Est GFR ( Amer) > 60 12/16/18 04:30 Est GFR (Non-Af Amer) > 60 12/16/18 04:30 POC Glucose (mg/dL) 153 mg/dL (65-110) H 12/06/18 10:12 Random Glucose 110 mg/dL (75-110) 12/16/18 04:30 Serum Osmolality 275 mosm/kg (272-300) 12/08/18 08:15 Lactic Acid 0.9 mmol/L (0.7-2.1) 12/10/18 05:00 Calcium 8.6 mg/dL (8.4-10.2) 12/16/18 04:30 Total Bilirubin 0.9 mg/dl (0.2-1.3) 12/07/18 04:25 AST 24 U/L (17-59) 12/07/18 04:25 ALT 26 U/L (21-72) 12/07/18 04:25 Alkaline Phosphatase 75 U/L (38-126) 12/07/18 04:25 CK-MB (Mass) 0.32 ng/mL (0.0-3.38) 12/11/18 16:20 Troponin I 0.0160 ng/mL (0.00-0.120) 12/07/18 04:25 NT-Pro-B Natriuret Pep 739 pg/ml (0-900) 12/10/18 17:55 Total Protein 6.9 G/DL (6.3-8.2) 12/07/18 04:25 Albumin 4.1 g/dL (3.5-5.0) 12/07/18 04:25 Globulin 2.7 gm/dL (2.2-3.9) 12/07/18 04:25 Albumin/Globulin Ratio 1.5 (1.0-2.1) 12/07/18 04:25 Arterial Blood Potassium 3.4 mmol/L (3.6-5.2) L 12/06/18 05:35 Urine Color Straw (YELLOW) 12/06/18 07:50 Urine Clarity Clear (Clear) 12/06/18 07:50 Urine pH 7.0 (5.0-8.0) 12/06/18 07:50 Ur Specific [place] 1.009 (1.003-1.030) 12/06/18 07:50 Urine Protein Negative mg/dL (NEGATIVE) 12/06/18 07:50 Urine Glucose (UA) Neg mg/dL (NEGATIVE) 12/06/18 07:50 Urine Ketones Negative mg/dL (NEGATIVE) 12/06/18 07:50 Urine Blood Moderate (NEGATIVE) 12/06/18 07:50 Urine Nitrate Negative (NEGATIVE) 12/06/18 07:50 Urine Bilirubin Negative (NEGATIVE) 12/06/18 07:50 Urine Urobilinogen 0.2-1.0 mg/dL (0.2-1.0) 12/06/18 07:50 Ur Leukocyte Esterase Neg Veto/uL (Negative) 12/06/18 07:50 Urine RBC (Auto) 1 /hpf (0-3) 12/06/18 07:50 Urine Microscopic WBC < 1 /hpf (0-5) 12/06/18 07:50 Urine Osmolality 431 mosm/kg (300-1000) 12/10/18 12:44 Ur Random Creatinine 74.1 mg/dL 12/10/18 12:44 Ur Random Sodium 8 mmol/L 12/10/18 12:44 Ur Random Potassium 67.5 mmol/L 12/08/18 22:00 Influenza Typ A,B (EIA) Negative for flu a/b (NEGATIVE) 12/06/18 06:14 - Hospital Course Hospital Course: Pt is a 78 yo M with a hx of recent PCI 5 stents placed at [facility] [address] Moreno, A fib, BPH, HTN presented to the ED with SOB, fatigue, feeling off, weakness and blurry vision admitted for CHF exacerbation. In ED EKG- A fib, Lasix, Troponin x5 negative, BNP 1050, Lasix 40mg IVP, BiPAP, CBC and U/A-WNL, BMP, CXR- No active pulm dz- cephalization noted, PT 12.8, PTT 29.4, INR 1.1, ABG- PH 7.48 , PCO2 26, Lactate 3.0, Influenza neg, Admitted to telemetry. Pt had an episode of SOB, Diaphoresis where EKG showed NSTEMI pt was started on heparin drip and it was noted that he had hematuria, reports he had hematuria for 1 mo prior to admission as well, Xarelto and ASA were held and hematuria resolved. Pt was still on plavix for stent. Pt also has chronic hyponatremia which responded to Samsca and fluid restriction. Pt denies SOB or chest pain, hematuria and hyponatremia resolved, stable for discharge to TCU. Discharge Exam - Head Exam Head Exam: ATRAUMATIC, NORMAL INSPECTION, NORMOCEPHALIC - Eye Exam Eye Exam: EOMI - ENT Exam ENT Exam: Mucous Membranes Moist - Respiratory Exam Respiratory Exam: Clear to PA & Lateral. absent: Rales, Rhonchi, Wheezes - Cardiovascular Exam Cardiovascular Exam: RRR, +S1, +S2 - GI/Abdominal Exam GI & Abdominal Exam: Normal Bowel Sounds, Soft. absent: Tenderness - Extremities Exam Extremities exam: normal inspection Discharge Plan - Follow Up Plan Condition: GUARDED Disposition: HOME/ ROUTINE Instructions: Heart Failure, Adult (DC) Additional Instructions: follow up appt with on 12/19/18 9:45am Referrals: [facility] [Outside] Joey Moreno MD [Staff Provider] - Azalea Garland MD [Family Provider] - <Monse Miller - Last Filed: 12/16/18 17:21> Provider - Provider Date of Admission: 12/06/18 06:57 Attending physician: Debbie Mtz DO Consults: 12/06/18 16:33 Case Management Referral Routine Comment: Physician Instructions: Reason For Exam: lives alone at home Reason for Referral: Discharge Planning Social Work Referral Routine Comment: Lives alone Physician Instructions: Reason For Exam: Lives alone at home 12/08/18 14:21 Cardiology Consult Routine Comment: Consulting Provider: Joey Moreno Consulting Physician: Joey Moreno Reason for Consult: CAD, CHF exacerb, A Fib 12/08/18 18:33 Palliative Care Consult Routine Comment: Consulting Provider: Nusrat Maynard Physician Instructions: no surrogate decision maker , no advance directive Reason For Exam: CAD, CHF, A Fib 12/10/18 08:21 Nephrology Consult Routine Comment: Consulting Provider: Darnell Spaulding Consulting Physician: Darnell Spaulding Reason for Consult: Hyponatremia 12/13/18 13:21 Urology Consult Routine Comment: Consulting Provider: Tr Quinones Consulting Physician: Tr Quinones Reason for Consult: Hematuria 12/14/18 12:43 Psychiatry Consult Routine Comment: Consulting Provider: Maurice Hobbs Consulting Physician: Maurice Hobbs Reason for Consult: Lives alone, evaluate for depression/anxiety Hospital Course - Lab Results Lab Results: Micro Results 12/06/18 06:11 Blood Blood Culture - Final NO GROWTH AFTER 5 DAYS 12/06/18 06:11 Blood Gram Stain - Final TEST NOT PERFORMED 12/06/18 05:41 Blood Blood Culture - Final NO GROWTH AFTER 5 DAYS 12/06/18 05:41 Blood Gram Stain - Final TEST NOT PERFORMED Most Recent Lab Values WBC 7.4 K/uL (4.8-10.8) 12/15/18 05:36 RBC 4.41 Mil/uL (4.40-5.90) 12/15/18 05:36 Hgb 12.5 g/dL (12.0-18.0) 12/15/18 05:36 Hct 37.2 % (35.0-51.0) 12/15/18 05:36 MCV 84.3 fl (80.0-94.0) 12/15/18 05:36 MCH 28.2 pg (27.0-31.0) 12/15/18 05:36 MCHC 33.5 g/dL (33.0-37.0) 12/15/18 05:36 RDW 14.3 % (11.5-14.5) 12/15/18 05:36 Plt Count 199 K/uL (130-400) 12/15/18 05:36 MPV 8.4 fl (7.2-11.7) 12/15/18 05:36 Neut % (Auto) 68.6 % (50.0-75.0) 12/15/18 05:36 Lymph % (Auto) 18.5 % (20.0-40.0) L 12/15/18 05:36 Adams % (Auto) 10.0 % (0.0-10.0) 12/15/18 05:36 Eos % (Auto) 2.6 % (0.0-4.0) 12/15/18 05:36 Baso % (Auto) 0.3 % (0.0-2.0) 12/15/18 05:36 Neut # (Auto) 5.1 K/uL (1.8-7.0) 12/15/18 05:36 Lymph # (Auto) 1.4 K/uL (1.0-4.3) 12/15/18 05:36 Adams # (Auto) 0.7 K/uL (0.0-0.8) 12/15/18 05:36 Eos # (Auto) 0.2 K/uL (0.0-0.7) 12/15/18 05:36 Baso # (Auto) 0.0 K/uL (0.0-0.2) 12/15/18 05:36 PT 13.6 Seconds (9.8-13.1) H 12/13/18 04:35 INR 1.2 12/13/18 04:35 APTT 30.4 Seconds (25.6-37.1) 12/13/18 04:35 pCO2 26 mm/Hg (35-45) L 12/06/18 05:35 pO2 117 mm/Hg (80-100) H 12/06/18 05:35 HCO3 22.9 mmol/L (21-28) 12/06/18 05:35 ABG pH 7.48 (7.35-7.45) H 12/06/18 05:35 ABG Total CO2 20.2 mmol/L (22-28) L 12/06/18 05:35 ABG O2 Saturation 100.7 % (95-98) H 12/06/18 05:35 ABG Base Excess -2.5 mmol/L (-2.0-3.0) L 12/06/18 05:35 Moe Test Yes 12/06/18 05:35 ABG Potassium 3.4 mmol/L (3.6-5.2) L 12/06/18 05:35 A-a O2 Difference 107.0 mm/Hg 12/06/18 05:35 Sodium 126.0 mmol/L (132-148) L 12/06/18 05:35 Chloride 96.0 mmol/L (98-107) L 12/06/18 05:35 Glucose 222 mg/dL (75-110) H 12/06/18 05:35 Lactate 3.0 mmol/L (0.7-2.1) H 12/06/18 05:35 FiO2 36.0 % 12/06/18 05:35 Sodium 131 mmol/l (132-148) L 12/16/18 04:30 Potassium 3.9 MMOL/L (3.6-5.0) 12/16/18 04:30 Chloride 95 mmol/L (98-107) L 12/16/18 04:30 Carbon Dioxide 26 mmol/L (22-30) 12/16/18 04:30 Anion Gap 14 (10-20) 12/16/18 04:30 BUN 19 mg/dl (9-20) 12/16/18 04:30 Creatinine 0.7 mg/dl (0.8-1.5) L 12/16/18 04:30 Est GFR ( Amer) > 60 12/16/18 04:30 Est GFR (Non-Af Amer) > 60 12/16/18 04:30 POC Glucose (mg/dL) 153 mg/dL (65-110) H 12/06/18 10:12 Random Glucose 110 mg/dL (75-110) 12/16/18 04:30 Serum Osmolality 275 mosm/kg (272-300) 12/08/18 08:15 Lactic Acid 0.9 mmol/L (0.7-2.1) 12/10/18 05:00 Calcium 8.6 mg/dL (8.4-10.2) 12/16/18 04:30 Total Bilirubin 0.9 mg/dl (0.2-1.3) 12/07/18 04:25 AST 24 U/L (17-59) 12/07/18 04:25 ALT 26 U/L (21-72) 12/07/18 04:25 Alkaline Phosphatase 75 U/L (38-126) 12/07/18 04:25 CK-MB (Mass) 0.32 ng/mL (0.0-3.38) 12/11/18 16:20 Troponin I 0.0160 ng/mL (0.00-0.120) 12/07/18 04:25 NT-Pro-B Natriuret Pep 739 pg/ml (0-900) 12/10/18 17:55 Total Protein 6.9 G/DL (6.3-8.2) 12/07/18 04:25 Albumin 4.1 g/dL (3.5-5.0) 12/07/18 04:25 Globulin 2.7 gm/dL (2.2-3.9) 12/07/18 04:25 Albumin/Globulin Ratio 1.5 (1.0-2.1) 12/07/18 04:25 Arterial Blood Potassium 3.4 mmol/L (3.6-5.2) L 12/06/18 05:35 Urine Color Straw (YELLOW) 12/06/18 07:50 Urine Clarity Clear (Clear) 12/06/18 07:50 Urine pH 7.0 (5.0-8.0) 12/06/18 07:50 Ur Specific [place] 1.009 (1.003-1.030) 12/06/18 07:50 Urine Protein Negative mg/dL (NEGATIVE) 12/06/18 07:50 Urine Glucose (UA) Neg mg/dL (NEGATIVE) 12/06/18 07:50 Urine Ketones Negative mg/dL (NEGATIVE) 12/06/18 07:50 Urine Blood Moderate (NEGATIVE) 12/06/18 07:50 Urine Nitrate Negative (NEGATIVE) 12/06/18 07:50 Urine Bilirubin Negative (NEGATIVE) 12/06/18 07:50 Urine Urobilinogen 0.2-1.0 mg/dL (0.2-1.0) 12/06/18 07:50 Ur Leukocyte Esterase Neg Veto/uL (Negative) 12/06/18 07:50 Urine RBC (Auto) 1 /hpf (0-3) 12/06/18 07:50 Urine Microscopic WBC < 1 /hpf (0-5) 12/06/18 07:50 Urine Osmolality 431 mosm/kg (300-1000) 12/10/18 12:44 Ur Random Creatinine 74.1 mg/dL 12/10/18 12:44 Ur Random Sodium 8 mmol/L 12/10/18 12:44 Ur Random Potassium 67.5 mmol/L 12/08/18 22:00 Influenza Typ A,B (EIA) Negative for flu a/b (NEGATIVE) 12/06/18 06:14 Attending/Attestation - Attestation I have personally seen and examined this patient.: Yes I have fully participated in the care of the patient.: Yes I have reviewed all pertinent clinical information, including history, physical exam and plan: Yes Notes (Text): CAD, ACS ruled out - Troponin x 3 negative - Pt has hx of Stent placement - 2 mos ago - cont Plavix - hold ASA and Xarelto due to hematuria - cont Coreg, and Lisinopril -Cardio consulted - rec to cont medical mgt Acute 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%, now improved - cont Coreg and LIsinopril - water restriction - off Lasix and Aldactone due to hyponatremia Ischemic Cardiomyopathy cont Coreg and DIDIER Hyponatremia likely due to the diuretics - received Samsca - Na now 131 - Nephro consulted - off diuretics - restrict free water A Fib, chronic with RVR cont Coreg , hold Xarelto due to hematuria Hematuria prob due to antiplatelets and Heparin - hold ASA and Xarelto - hematuria cleared up - Urology consulted- no need for Cystoscopy Urinary Retention likely due to Prostatic Enlargement resolved -cont Proscar and Flomax Deconditioning - PT rec TCU , pt refused -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
--- NOTE | 2018-12-16 14:38 | CP.PCM.CON ---
History of Present Illness - History of Present Illness History of Present Illness: late note for [id number] psychiatry called to consult for patient, 78 year old male, lives alone, multiple medical illnesses, family live at a distance Past Patient History - Infectious Disease Hx of Infectious Diseases: None - Tetanus Immunizations Tetanus Immunization: Up to Date - Past Medical History & Family History Past Medical History?: Yes - Past Social History Smoking Status: Never Smoked - CARDIAC Hx Angina: No Hx Atrial Fibrillation: Yes Hx Cardia Arrhythmia: No Hx Circulatory Problems: No Hx Congestive Heart Failure: No Hx Heart Attack: No Hx Heart Murmur: No Hx Heart Transplant: No Hx Hypercholesterolemia: No Hx Hypertension: Yes Hx Hypotension: No Hx Internal Defibrillator: No Hx Mitral Valve Prolapse: No Hx Pacemaker: No Hx Peripheral Edema: No Hx Peripheral Vascular Disease: No - PULMONARY Hx Respiratory Disorders: No - NEUROLOGICAL Hx Neurological Disorder: No - HEENT Hx HEENT Problems: No - RENAL Hx Chronic Kidney Disease: No - ENDOCRINE/METABOLIC Hx Endocrine Disorders: No - HEMATOLOGICAL/ONCOLOGICAL Hx Blood Disorders: No Hx AIDS: No Hx Human Immunodeficiency Virus (HIV): No - INTEGUMENTARY Hx Dermatological Problems: No - MUSCULOSKELETAL/RHEUMATOLOGICAL Hx Musculoskeletal Disorders: No Hx Arthritis: No Hx Back Pain: No Hx Degenerative Joint Disease: No Hx Falls: No Hx Fractures: No Hx Gout: No Hx Herniated Disk: Yes Hx Myasthenia Gravis: No Hx Osteoarthritis: No Hx Osteomyelitis: No Hx Osteoporosis: No Hx Rhabdomyolysis: No Hx Rheumatoid Arthritis: No Hx Spinal Stenosis: No Hx Unsteady Gait: No - GASTROINTESTINAL Hx Gastrointestinal Disorders: No Hx Bowel Surgery: No - GENITOURINARY/GYNECOLOGICAL Hx Genitourinary Disorders: Yes Hx Bladder Cancer: No Hx Bladder Stone: Yes (kidney stones) Hx Hematuria: No Hx Incontinence: No Hx Prostate Cancer: No Hx Prostate Problems: Yes (BPH) Hx Reproductive Disorders: No Hx Sexually Transmitted Disorders: No Hx Urinary Tract Infection: No - PSYCHIATRIC Hx Psychophysiologic Disorder: No Hx Emotional Abuse: No Hx Physical Abuse: No Hx Substance Use: No - SURGICAL HISTORY Hx Abdominal Aortic Aneurysm Repair: No Hx Amputation: No Hx Angiogram: No Hx Angioplasty: No Hx Appendectomy: No Hx Arteriovenous Shunt: No Hx Arthroscopy: No Hx Bile Duct Stent: No Hx Breast Biopsy: No Hx Cataract Extraction: No Hx Cardiac Catheterization: No Hx Carotid Endarterectomy: No Hx Section: No Hx Cholecystectomy: No Hx Coronary Artery Bypass Graft: No Hx Coronary Stent: No Hx Dilation and Curettage: No Hx Eye Surgery: No Hx Femoral-Popliteal Bypass Graft: No Hx Gastric Bypass Surgery: No Hx Herniorrhaphy: Yes Hx Hysterectomy: No Hx Joint Replacement: No Hx Kidney Transplant: No Hx Liver Transplant: No Hx Tonsillectomy: No - ANESTHESIA Hx Anesthesia: Yes Hx Anesthesia Reactions: No Hx Malignant Hyperthermia: No Meds Home Medications: Home Medication List Medication Instructions Recorded Confirmed Type Clopidogrel [Plavix] 75 mg PO DAILY tab 12/16/18 Rx Allergies/Adverse Reactions: Allergies Allergy/AdvReac Type Severity Reaction Status Date / Time No Known Allergies Allergy Verified 12/06/18 05:20 - Medications Medications: Current Medications Albuterol Sulfate (Albuterol 0.083% Inhal Hawa (2.5 Mg/3 Ml) Ud) 2.5 mg IH Q6H PRN PRN Reason: Shortness of Breath Carvedilol (Coreg) 25 mg PO Q12 [facility] Last Admin: 12/16/18 09:13 Dose: 25 mg Clopidogrel Bisulfate (Plavix) 75 mg PO DAILY [facility] Last Admin: 12/15/18 09:02 Dose: 75 mg Docusate Sodium (Colace) 100 mg PO DAILY [facility] Last Admin: 12/16/18 12:00 Dose: 100 mg Finasteride (Proscar) 5 mg PO DAILY [facility] Last Admin: 12/16/18 09:12 Dose: 5 mg Lisinopril (Zestril) 5 mg PO DAILY [facility] Last Admin: 12/16/18 09:14 Dose: 5 mg Tamsulosin HCl (Flomax) 0.4 mg PO DAILY [facility] Last Admin: 12/16/18 12:01 Dose: 0.4 mg Physical Exam - Psychiatric Exam Psychiatric exam: Normal Affect Additional comments: hospital attire, speech of lower tone, varied rate, a/x person, place, situation and time. eye contact fair. reports doing okay, thought process is linear, mood described as okay, affect is mood congruent, denies s/i, h/i or psychosis, i/j appears intact, negative visible psychomotor abnormalities. - Skin Additional comments: hospital attire, speech of lower tone, varied rate, a/x person, place, situation and time. eye contact fair. reports doing okay, thought process is linear, m ood described as okay, affect is mood congruent, denies s/i, h/i or psychosis, i/j appears intact, negative visible psychomotor abnormalities. 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 tachycaria) pt can be offered referral to [facility] ([facility] [phone]), [place], [place]. psychiatry can be reconsulted to reassess potential need for medication Status: Acute Priority: Medium Comment: pt to be offered opportunity to have 1/1 interaction with nursing/social work staff. pt referred to [facility] for follow up ie psychotherapy. psychiatry can be reconsulted as necessary. primary medical team to continue to manage underlying diagnoses. upon discharge possible home health services, possible food preparation worker. team may consider possible referral to medical day program per pt's underlying medical status, insurance and pt's desire. at this time no psychiatric medications are indicated (2) Secondary mood disorder Status: Acute Priority: Medium (3) Adjustment disorder Status: Acute Priority: Medium
--- NOTE | 2018-12-16 19:55 | CP.PCM.CON ---
History of Present Illness - History of Present Illness History of Present Illness: urology consult dictated. Hematurai now resolved conservative management advised Past Patient History - Infectious Disease Hx of Infectious Diseases: None - Tetanus Immunizations Tetanus Immunization: Up to Date - Past Medical History & Family History Past Medical History?: Yes - Past Social History Smoking Status: Never Smoked - CARDIAC Hx Angina: No Hx Atrial Fibrillation: Yes Hx Cardia Arrhythmia: No Hx Circulatory Problems: No Hx Congestive Heart Failure: No Hx Heart Attack: No Hx Heart Murmur: No Hx Heart Transplant: No Hx Hypercholesterolemia: No Hx Hypertension: Yes Hx Hypotension: No Hx Internal Defibrillator: No Hx Mitral Valve Prolapse: No Hx Pacemaker: No Hx Peripheral Edema: No Hx Peripheral Vascular Disease: No - PULMONARY Hx Respiratory Disorders: No - NEUROLOGICAL Hx Neurological Disorder: No - HEENT Hx HEENT Problems: No - RENAL Hx Chronic Kidney Disease: No - ENDOCRINE/METABOLIC Hx Endocrine Disorders: No - HEMATOLOGICAL/ONCOLOGICAL Hx Blood Disorders: No Hx AIDS: No Hx Human Immunodeficiency Virus (HIV): No - INTEGUMENTARY Hx Dermatological Problems: No - MUSCULOSKELETAL/RHEUMATOLOGICAL Hx Musculoskeletal Disorders: No Hx Arthritis: No Hx Back Pain: No Hx Degenerative Joint Disease: No Hx Falls: No Hx Fractures: No Hx Gout: No Hx Herniated Disk: Yes Hx Myasthenia Gravis: No Hx Osteoarthritis: No Hx Osteomyelitis: No Hx Osteoporosis: No Hx Rhabdomyolysis: No Hx Rheumatoid Arthritis: No Hx Spinal Stenosis: No Hx Unsteady Gait: No - GASTROINTESTINAL Hx Gastrointestinal Disorders: No Hx Bowel Surgery: No - GENITOURINARY/GYNECOLOGICAL Hx Genitourinary Disorders: Yes Hx Bladder Cancer: No Hx Bladder Stone: Yes (kidney stones) Hx Hematuria: No Hx Incontinence: No Hx Prostate Cancer: No Hx Prostate Problems: Yes (BPH) Hx Reproductive Disorders: No Hx Sexually Transmitted Disorders: No Hx Urinary Tract Infection: No - PSYCHIATRIC Hx Psychophysiologic Disorder: No Hx Emotional Abuse: No Hx Physical Abuse: No Hx Substance Use: No - SURGICAL HISTORY Hx Abdominal Aortic Aneurysm Repair: No Hx Amputation: No Hx Angiogram: No Hx Angioplasty: No Hx Appendectomy: No Hx Arteriovenous Shunt: No Hx Arthroscopy: No Hx Bile Duct Stent: No Hx Breast Biopsy: No Hx Cataract Extraction: No Hx Cardiac Catheterization: No Hx Carotid Endarterectomy: No Hx Section: No Hx Cholecystectomy: No Hx Coronary Artery Bypass Graft: No Hx Coronary Stent: No Hx Dilation and Curettage: No Hx Eye Surgery: No Hx Femoral-Popliteal Bypass Graft: No Hx Gastric Bypass Surgery: No Hx Herniorrhaphy: Yes Hx Hysterectomy: No Hx Joint Replacement: No Hx Kidney Transplant: No Hx Liver Transplant: No Hx Tonsillectomy: No - ANESTHESIA Hx Anesthesia: Yes Hx Anesthesia Reactions: No Hx Malignant Hyperthermia: No Meds Home Medications: Home Medication List Medication Instructions Recorded Confirmed Type Clopidogrel [Plavix] 75 mg PO DAILY tab 12/16/18 Rx Allergies/Adverse Reactions: Allergies Allergy/AdvReac Type Severity Reaction Status Date / Time No Known Allergies Allergy Verified 12/06/18 05:20 - Medications Medications: Current Medications Albuterol Sulfate (Albuterol 0.083% Inhal Hawa (2.5 Mg/3 Ml) Ud) 2.5 mg IH Q6H PRN PRN Reason: Shortness of Breath Carvedilol (Coreg) 25 mg PO Q12 [facility] Last Admin: 12/16/18 09:13 Dose: 25 mg Clopidogrel Bisulfate (Plavix) 75 mg PO DAILY [facility] Last Admin: 12/15/18 09:02 Dose: 75 mg Docusate Sodium (Colace) 100 mg PO DAILY [facility] Last Admin: 12/16/18 12:00 Dose: 100 mg Finasteride (Proscar) 5 mg PO DAILY [facility] Last Admin: 12/16/18 09:12 Dose: 5 mg Lisinopril (Zestril) 5 mg PO DAILY [facility] Last Admin: 12/16/18 09:14 Dose: 5 mg Tamsulosin HCl (Flomax) 0.4 mg PO DAILY [facility] Last Admin: 12/16/18 12:01 Dose: 0.4 mg Results - Vital Signs Recent Vital Signs: Last Vital Signs Temp 97.9 F 12/16/18 16:19 Pulse 82 12/16/18 16:19 Resp 16 12/16/18 16:19 BP 92/62 L 12/16/18 16:19 Pulse Ox 97 12/16/18 16:19 - Labs Result Diagrams: 12/15/18 05:36 12/16/18 04:30 Labs: Laboratory Results - last 24 hr 12/16/18 04:30 Sodium 131 L Potassium 3.9 Chloride 95 L Carbon Dioxide 26 Anion Gap 14 BUN 19 Creatinine 0.7 L Est GFR ( Amer) > 60 Est GFR (Non-Af Amer) > 60 Random Glucose 110 Calcium 8.6
--- NOTE | 2018-12-17 04:12 | CON ---
DATE: 12/16/2018 19:58:52 [facility] # [id number]
[2018-12-17 06:05] LABS: BLOOD UREA NITROGEN 26 mg/dl (9-20); CALCIUM 8.9 mg/dL (8.4-10.2); GFR NON-AFRICAN AMERICAN > 60
--- NOTE | 2018-12-17 07:57 | CP.PCM.PN ---
<DerrickBelinda - Last Filed: 12/17/18 12:38> Subjective - Date & Time of Evaluation Date of Evaluation: 12/17/18 Time of Evaluation: 09:00 - Subjective Subjective: Pt seen and examined at bedside. Denies SOB or chest pain, hematuria. Tolerating oral intake. Pt to go to TCU today for rehab. Objective - Vital Signs/Intake and Output Vital Signs (last 24 hours): Temp Pulse Resp BP Pulse Ox 97.8 F 77 20 118/74 97 12/17/18 04:59 12/17/18 04:59 12/17/18 04:59 12/17/18 04:59 12/17/18 04:59 - Medications Medications: Current Medications Albuterol Sulfate (Albuterol 0.083% Inhal Hawa (2.5 Mg/3 Ml) Ud) 2.5 mg IH Q6H PRN PRN Reason: Shortness of Breath Carvedilol (Coreg) 25 mg PO Q12 [facility] Last Admin: 12/16/18 21:32 Dose: 25 mg Clopidogrel Bisulfate (Plavix) 75 mg PO DAILY [facility] Last Admin: 12/15/18 09:02 Dose: 75 mg Docusate Sodium (Colace) 100 mg PO DAILY [facility] Last Admin: 12/16/18 12:00 Dose: 100 mg Finasteride (Proscar) 5 mg PO DAILY [facility] Last Admin: 12/16/18 09:12 Dose: 5 mg Lisinopril (Zestril) 5 mg PO DAILY [facility] Last Admin: 12/16/18 09:14 Dose: 5 mg Tamsulosin HCl (Flomax) 0.4 mg PO DAILY [facility] Last Admin: 12/16/18 12:01 Dose: 0.4 mg - Labs Labs: 12/15/18 05:36 12/17/18 05:05 PT 13.6 Seconds (9.8-13.1) H 12/13/18 04:35 INR 1.2 12/13/18 04:35 APTT 30.4 Seconds (25.6-37.1) 12/13/18 04:35 - Constitutional Appears: Non-toxic, No Acute Distress - Head Exam Head Exam: NORMAL INSPECTION - Eye Exam Eye Exam: EOMI - ENT Exam ENT Exam: Mucous Membranes Moist - Respiratory Exam Respiratory Exam: Clear to Ausculation Bilateral. absent: Rales, Rhonchi, Wheezes - Cardiovascular Exam Cardiovascular Exam: RRR, +S1, +S2 - GI/Abdominal Exam GI & Abdominal Exam: Soft, Normal Bowel Sounds. absent: Tenderness - Extremities Exam Extremities Exam: Normal Inspection. absent: Pedal Edema - Neurological Exam Neurological Exam: Alert, Awake, Oriented x3 Assessment and Plan (1) Afib Assessment & Plan: Stable c/w home meds Status: Chronic (2) CAD (coronary artery disease) Assessment & Plan: Stable Status: Acute (3) CHF exacerbation Assessment & Plan: Acute, resolved Status: Acute (4) Hematuria Assessment & Plan: Acute, resolved Status: Acute (5) BPH (benign prostatic hyperplasia) Assessment & Plan: Chronic, stable Status: Chronic (6) Chronic hyponatremia Assessment & Plan: Chronic, stable Status: Chronic (7) HTN (hypertension) Assessment & Plan: Chronic, stable Status: Chronic - Assessment and Plan (Free Text) Assessment: Pt is a 78 yo M with hx of recent PCI 5 stents placed at [place] 1 mo ago, A fib, BPH, HTN presented to the ED with SOB, fatigue, feeling off, weakness and blurry vision admitted for CHF exacerbation. CAD, ACS ruled out Troponin x5 negative Cardiology consulted- Dr. 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 Marie appreciated Fluid restriction @900ml per day D/c diuretics s/p Sodium tablet x2 dose s/p Tolvaptan 15mg x2 dose Hematuria prob due to antiplatelets and Heparin acute, resolved Hold Xarelto and ASA still on plavix Urology consulted-Dr. Joni dinero appreciated- no plan for cystoscopy due to improvement Urinary Retention likely due to Prostatic Enlargement c/w Finasteride 5mg QD and Tamsulosin 0.4mg QD A Fib, chronic with RVR c/w Coreg, Held Xarelto due to hematuria Depression Psych consulted-Maurice Hobbs-[facility] outpt therapy, no medications at this time ([facility] [phone]), [place], [place]. Diet Heart healthy DVT PPx anticoag held due to hematuria See discharge summary done 12/16/18 <Monse Miller - Last Filed: 12/17/18 15:03> Objective - Vital Signs/Intake and Output Vital Signs (last 24 hours): Temp Pulse Resp BP Pulse Ox 98.3 F 93 H 18 103/61 97 12/17/18 12:22 12/17/18 12:22 12/17/18 12:22 12/17/18 12:22 12/17/18 12:22 - Medications Medications: Current Medications Albuterol Sulfate (Albuterol 0.083% Inhal Hawa (2.5 Mg/3 Ml) Ud) 2.5 mg IH Q6H PRN PRN Reason: Shortness of Breath Carvedilol (Coreg) 25 mg PO Q12 [facility] Last Admin: 12/17/18 08:30 Dose: 25 mg Clopidogrel Bisulfate (Plavix) 75 mg PO DAILY [facility] Last Admin: 12/17/18 08:32 Dose: 75 mg Docusate Sodium (Colace) 100 mg PO DAILY [facility] Last Admin: 12/17/18 08:31 Dose: 100 mg Finasteride (Proscar) 5 mg PO DAILY [facility] Last Admin: 12/17/18 08:31 Dose: 5 mg Lisinopril (Zestril) 5 mg PO DAILY [facility] Last Admin: 12/17/18 08:31 Dose: 5 mg Tamsulosin HCl (Flomax) 0.4 mg PO DAILY [facility] Last Admin: 12/17/18 08:32 Dose: 0.4 mg - Labs Labs: 12/15/18 05:36 12/17/18 05:05 PT 13.6 Seconds (9.8-13.1) H 12/13/18 04:35 INR 1.2 12/13/18 04:35 APTT 30.4 Seconds (25.6-37.1) 12/13/18 04:35 Attending/Attestation - Attestation I have personally seen and examined this patient.: Yes I have fully participated in the care of the patient.: Yes I have reviewed all pertinent clinical information, including history, physical exam and plan: Yes Notes (Text): CAD, ACS ruled out - Troponin x 3 negative - Pt has hx of Stent placement - 2 mos ago - cont Plavix - hold ASA and Xarelto due to hematuria - cont Coreg, and Lisinopril -Cardio consulted - rec to cont medical mgt Acute 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%, now improved - cont Coreg and LIsinopril - water restriction - off Lasix and Aldactone due to hyponatremia Ischemic Cardiomyopathy cont Coreg and DIDIER Hyponatremia likely due to the diuretics - received Samsca - Na now 131 - Nephro consulted - off diuretics - restrict free water A Fib, chronic with RVR cont Coreg , hold Xarelto due to hematuria cont Plavix Hematuria prob due to antiplatelets and Heparin - hold ASA and Xarelto - hematuria cleared up - Urology consulted- no need for Cystoscopy Urinary Retention likely due to Prostatic Enlargement resolved -cont Proscar and Flomax Deconditioning - PT rec TCU - pt now agrees because he has been very deconditioned Depression Psych consulted- rec outpt Psych clinic ff up, no need for meds for now DVT proph - anticoag held due to hematuria Awaiting Insurance approval for TCU placement
--- NOTE | 2018-12-17 11:49 | CP.PCM.PN ---
Subjective - Date & Time of Evaluation Date of Evaluation: 12/17/18 Time of Evaluation: 11:48 - Subjective Subjective: Patient awake and conscious not in acute distress Objective - Vital Signs/Intake and Output Vital Signs (last 24 hours): Temp Pulse Resp BP Pulse Ox 98.2 F 101 H 18 120/62 97 12/17/18 08:15 12/17/18 08:31 12/17/18 08:15 12/17/18 08:31 12/17/18 08:15 - Medications Medications: Current Medications Albuterol Sulfate (Albuterol 0.083% Inhal Hawa (2.5 Mg/3 Ml) Ud) 2.5 mg IH Q6H PRN PRN Reason: Shortness of Breath Carvedilol (Coreg) 25 mg PO Q12 [facility] Last Admin: 12/17/18 08:30 Dose: 25 mg Clopidogrel Bisulfate (Plavix) 75 mg PO DAILY [facility] Last Admin: 12/17/18 08:32 Dose: 75 mg Docusate Sodium (Colace) 100 mg PO DAILY [facility] Last Admin: 12/17/18 08:31 Dose: 100 mg Finasteride (Proscar) 5 mg PO DAILY [facility] Last Admin: 12/17/18 08:31 Dose: 5 mg Lisinopril (Zestril) 5 mg PO DAILY [facility] Last Admin: 12/17/18 08:31 Dose: 5 mg Tamsulosin HCl (Flomax) 0.4 mg PO DAILY [facility] Last Admin: 12/17/18 08:32 Dose: 0.4 mg - Labs Labs: 12/15/18 05:36 12/17/18 05:05 PT 13.6 Seconds (9.8-13.1) H 12/13/18 04:35 INR 1.2 12/13/18 04:35 APTT 30.4 Seconds (25.6-37.1) 12/13/18 04:35 - Constitutional Appears: No Acute Distress - Eye Exam Eye Exam: Conjunctival injection - ENT Exam ENT Exam: Mucous Membranes Moist - Neck Exam Neck Exam: absent: Lymphadenopathy - Respiratory Exam Respiratory Exam: NORMAL BREATHING PATTERN - Cardiovascular Exam Cardiovascular Exam: absent: Gallop, Rubs - Extremities Exam Extremities Exam: absent: Calf Tenderness - Back Exam Back Exam: absent: CVA tenderness (L), CVA tenderness (R) - Neurological Exam Neurological Exam: Alert - Psychiatric Exam Psychiatric exam: Normal Affect - Skin Skin Exam: absent: Cyanosis Assessment and Plan (1) CHF exacerbation Status: Acute (2) Chronic hyponatremia Assessment & Plan: Congestive cardiomyopathy with ejection fraction 20-25% reported by the cardiology Persistent hyponatremia Atrial fibrillation H/O post CABG Recommendation Sodium around 131 , patient needs strict fluid restriction 900 cc in 24 hours Status: Acute
--- NOTE | 2018-12-17 15:28 | CP.PCM.PN ---
Subjective - Date & Time of Evaluation Date of Evaluation: 12/17/18 Time of Evaluation: 15:26 - Subjective Subjective: plan for TCU today bnp 739 Objective - Vital Signs/Intake and Output Vital Signs (last 24 hours): Temp Pulse Resp BP Pulse Ox 98.3 F 93 H 18 103/61 97 12/17/18 12:22 12/17/18 12:22 12/17/18 12:22 12/17/18 12:22 12/17/18 12:22 - Medications Medications: Current Medications Albuterol Sulfate (Albuterol 0.083% Inhal Hawa (2.5 Mg/3 Ml) Ud) 2.5 mg IH Q6H PRN PRN Reason: Shortness of Breath Carvedilol (Coreg) 25 mg PO Q12 [facility] Last Admin: 12/17/18 08:30 Dose: 25 mg Clopidogrel Bisulfate (Plavix) 75 mg PO DAILY [facility] Last Admin: 12/17/18 08:32 Dose: 75 mg Docusate Sodium (Colace) 100 mg PO DAILY [facility] Last Admin: 12/17/18 08:31 Dose: 100 mg Finasteride (Proscar) 5 mg PO DAILY [facility] Last Admin: 12/17/18 08:31 Dose: 5 mg Lisinopril (Zestril) 5 mg PO DAILY [facility] Last Admin: 12/17/18 08:31 Dose: 5 mg Tamsulosin HCl (Flomax) 0.4 mg PO DAILY [facility] Last Admin: 12/17/18 08:32 Dose: 0.4 mg - Labs Labs: 12/15/18 05:36 12/17/18 05:05 PT 13.6 Seconds (9.8-13.1) H 12/13/18 04:35 INR 1.2 12/13/18 04:35 APTT 30.4 Seconds (25.6-37.1) 12/13/18 04:35 - Constitutional Appears: Well - Head Exam Head Exam: ATRAUMATIC, NORMAL INSPECTION, NORMOCEPHALIC - Eye Exam Eye Exam: EOMI, Normal appearance, PERRL Pupil Exam: NORMAL ACCOMODATION, PERRL - ENT Exam ENT Exam: Mucous Membranes Moist, Normal Exam - Neck Exam Neck Exam: Full ROM, Normal Inspection. absent: Lymphadenopathy - Respiratory Exam Respiratory Exam: Clear to Ausculation Bilateral, NORMAL BREATHING PATTERN - Cardiovascular Exam Cardiovascular Exam: REGULAR RHYTHM, +S1, +S2. absent: Murmur - GI/Abdominal Exam GI & Abdominal Exam: Soft, Normal Bowel Sounds. absent: Tenderness - Extremities Exam Extremities Exam: Full ROM, Normal Capillary Refill, Normal Inspection. absent: Joint Swelling, Pedal Edema - Back Exam Back Exam: NORMAL INSPECTION - Neurological Exam Neurological Exam: Alert, Awake, CN II-XII Intact, Normal Gait, Oriented x3 - Psychiatric Exam Psychiatric exam: Normal Affect, Normal Mood - Skin Skin Exam: Dry, Intact, Normal Color, Warm Assessment and Plan (1) Hematuria Assessment & Plan: stable resolved Status: Acute (2) Hypovolemia Status: Acute (3) CHF exacerbation Assessment & Plan: stable off diuretics Status: Acute (4) Afib Assessment & Plan: cont bb resume xarelto 10mg po daily Status: Chronic (5) Chronic hyponatremia Status: Chronic (6) HTN (hypertension) Status: Chronic (7) CAD (coronary artery disease) Assessment & Plan: stable cont plavix with xarelto 10mg in TCU Status: Acute
[2018-12-17 19:55] VITALS: BP 102/56; PULSE 76; RESP 18; TEMP 97.9; O2SAT 98
== END 2018-12-17 20:45 | DRG 292 ==
LOC: H.ER 05:11 → H.ERHOLD 06:57 → H.TEL 08:34
PROVIDERS: ADMIT Student in an Organized Health Care Education/Training Program; ATTEND Student in an Organized Health Care Education/Training Program
PROC: 3E0234Z Introduction of Serum, Toxoid and Vaccine into Muscle, Percutaneous Approach (ICD-10-PCS; principal; 2018-12-06)
DX: I11.0 Hypertensive heart disease with heart failure (principal); E87.1 Hypo-osmolality and hyponatremia; E87.3 Alkalosis; E87.8 Other disorders of electrolyte and fluid balance, not elsewhere classified; Z95.5 Presence of coronary angioplasty implant and graft; Z87.891 Personal history of nicotine dependence; Z23 Encounter for immunization; I48.2 Chronic atrial fibrillation; I25.5 Ischemic cardiomyopathy; I25.10 Atherosclerotic heart disease of native coronary artery without angina pectoris; E86.1 Hypovolemia; F06.30 Mood disorder due to known physiological condition, unspecified; F43.20 Adjustment disorder, unspecified; N40.1 Benign prostatic hyperplasia with lower urinary tract symptoms; R33.8 Other retention of urine; I50.43 Acute on chronic combined systolic (congestive) and diastolic (congestive) heart failure; T50.2X5A Adverse effect of carbonic-anhydrase inhibitors, benzothiadiazides and other diuretics, initial encounter; R31.9 Hematuria, unspecified; T45.525A Adverse effect of antithrombotic drugs, initial encounter; T45.515A Adverse effect of anticoagulants, initial encounter; I42.0 Dilated cardiomyopathy; R04.0 Epistaxis; K59.00 Constipation, unspecified

== ENCOUNTER 2018-12-17 17:46 | Inpatient (IN) | payer MEDICARE ==
[2018-12-17 20:44] VITALS: BMI 25.9
[2018-12-18 06:28] LABS: BLOOD UREA NITROGEN 25 mg/dl (9-20); CALCIUM 8.9 mg/dL (8.4-10.2); GFR NON-AFRICAN AMERICAN > 60
--- NOTE | 2018-12-18 13:33 | CP.PCM.HP ---
History of Present Illness - History of Present Illness History of Present Illness: 78 yr old M admitted to TCU for PT/OT for deconditioning s/p discharge from telemetry for treatment of CHF exacerbation and NSTEMI. PMHx is significant for recent PCI 5 stents placed at [place] [address] Moreno, Afib, BPH, HT N. Patient had recent recurrent episode of hematuria, Xarelto and ASA were held and hematuria resolved. Xarelto restarted per cardiology. Hx chronic hyponatremia responsive to Samsca and fluid restriction. Patient denies SOB, chest pain, fevers, chills or hematuria. Present on Admission - Present on Admission Any Indicators Present on Admission: No History of DVT/PE: No History of Uncontrolled Diabetes: No Urinary Catheter: No Decubitus Ulcer Present: No History Surgical Site Infection Following: None Review of Systems - Constitutional Constitutional: absent: Chills, Fever - EENT Eyes: absent: Blurred Vision Ears: absent: Dizziness Nose/Mouth/Throat: absent: Sore Throat - Cardiovascular Cardiovascular: absent: Dyspnea, Syncope - Respiratory Respiratory: absent: Cough, Hemoptysis - Gastrointestinal Gastrointestinal: absent: Nausea, Vomiting - Genitourinary Genitourinary: absent: Dysuria, Hematuria - Musculoskeletal Musculoskeletal: Numbness, Tingling - Neurological Neurological: Confusion, Dizziness - Psychiatric Psychiatric: Depression - Endocrine Endocrine: absent: Fatigue, Polyphagia, Polyuria - Hematologic/Lymphatic Hematologic: absent: Easy Bleeding, Easy Bruising Past Patient History - Infectious Disease Hx of Infectious Diseases: None - Tetanus Immunizations Tetanus Immunization: Up to Date - Past Medical History & Family History Past Medical History?: Yes - Past Social History Smoking Status: Never Smoked - CARDIAC Hx Cardiac Disorders: Yes Hx Atrial Fibrillation: Yes Hx Hypertension: Yes - PULMONARY Hx Respiratory Disorders: No - NEUROLOGICAL Hx Neurological Disorder: No - HEENT Hx HEENT Problems: No - RENAL Hx Chronic Kidney Disease: No - ENDOCRINE/METABOLIC Hx Endocrine Disorders: No - HEMATOLOGICAL/ONCOLOGICAL Hx Blood Disorders: No Hx AIDS: No Hx Human Immunodeficiency Virus (HIV): No - INTEGUMENTARY Hx Dermatological Problems: No - MUSCULOSKELETAL/RHEUMATOLOGICAL Hx Musculoskeletal Disorders: Yes Hx Falls: No Hx Herniated Disk: Yes - GASTROINTESTINAL Hx Gastrointestinal Disorders: No Hx Bowel Surgery: No - GENITOURINARY/GYNECOLOGICAL Hx Genitourinary Disorders: Yes Hx Bladder Stone: Yes (kidney stones) Hx Hematuria: Yes Hx Prostate Problems: Yes (BPH) - PSYCHIATRIC Hx Substance Use: No - SURGICAL HISTORY Hx Surgeries: Yes Hx Herniorrhaphy: Yes - ANESTHESIA Hx Anesthesia: Yes Hx Anesthesia Reactions: No Hx Malignant Hyperthermia: No Meds Allergies/Adverse Reactions: Allergies Allergy/AdvReac Type Severity Reaction Status Date / Time No Known Allergies Allergy Verified 12/17/18 17:53 Physical Exam - Constitutional Appears: Non-toxic, No Acute Distress - Head Exam Head Exam: ATRAUMATIC, NORMOCEPHALIC - Eye Exam Eye Exam: EOMI - ENT Exam ENT Exam: Mucous Membranes Moist - Respiratory Exam Respiratory Exam: Clear to Auscultation Bilateral, NORMAL BREATHING PATTERN - Cardiovascular Exam Cardiovascular Exam: Irregular Rhythm, +S1, +S2 - GI/Abdominal Exam GI & Abdominal Exam: Normal Bowel Sounds, Soft. absent: Tenderness - Extremities Exam Extremities exam: Positive for: pedal pulses present. Negative for: tenderness - Neurological Exam Neurological exam: Alert - Psychiatric Exam Psychiatric exam: Depressed, Flat Affect - Skin Skin Exam: Dry, Normal Color, Warm Results - Vital Signs Recent Vital Signs: Last Vital Signs Temp 97.8 F 12/18/18 08:05 Pulse 83 12/18/18 11:34 Resp 20 12/18/18 08:05 BP 130/85 12/18/18 08:33 Pulse Ox 95 12/18/18 11:34 - Labs Result Diagrams: 12/18/18 05:42 Labs: Laboratory Results - last 24 hr 12/18/18 05:42 Sodium 130 L Potassium 4.1 Chloride 95 L Carbon Dioxide 27 Anion Gap 12 BUN 25 H Creatinine 0.7 L Est GFR ( Amer) > 60 Est GFR (Non-Af Amer) > 60 Random Glucose 100 Calcium 8.9 Assessment & Plan - Assessment and Plan (Free Text) Assessment: 78 yr old M admitted to TCU for PT/OT for deconditioning s/p discharge from telemetry for CHF exacerbation and NSTEMI. PMHx significant for recent PCI 5 stents placed at [place] 1 month ago, Afib, BPH, HTN and chronic hyponatremia. Patient is stable for PT/OT. Nephrology and cardiology on board. Deconditioning -acute s/p tele discharge -patient stable, continue PT/OT Coronary Artery Disease with stents -chronic, stable -Cardiology consulted- Dr. Moreno-resume Xarelto, Coreg 25mg PO Q12, Lisinopril 5 mg PO QD CHF combined dysfunction EF 20-25% -chronic, stable, repeat BNP 739 -continue Coreg and Lisinopril -water restriction 900 mL QD -off Lasix and Aldactone due to hyponatremia Ischemic Cardiomyopathy -chronic, stable -cont Coreg and DIDIER Hyponatremia likely due to the diuretics -chronic, stable -Na 130 today -Nephrology consulted- Dr. Spaulding-reccs appreciated Fluid restriction @900ml per day -D/c diuretics -s/p Sodium tablet x2 dose and Tolvaptan 15mg x2 dose -f/u repeat BMP Urinary Retention likely due to Prostatic Enlargement -chronic, stable -continue with Finasteride 5mg QD and Tamsulosin 0.4mg QD A Fib, chronic with RVR -continue, stable -Coreg and Xarelto Depression -Psych consulted-Maurice Hobbs: recommendation for outpt therapy, no medications at this time -refer as outpatient to: [facility] [phone]), [place], [place]. Diet -Heart healthy with 900mL fluid restriction x 24hrs DVT PPx -patient on xarelto - Date & Time Date: 12/18/18 Time: 10:10
[2018-12-19 07:18] LABS: BLOOD UREA NITROGEN 21 mg/dl (9-20); CALCIUM 8.6 mg/dL (8.4-10.2); GFR NON-AFRICAN AMERICAN > 60
[2018-12-19] MEDS: guaiFENesin 100 mg/5 ml Syrup UD PO PRN ×2 (08:38→16:23)
--- NOTE | 2018-12-19 11:22 | CP.PCM.PN ---
Subjective - Date & Time of Evaluation Date of Evaluation: 12/19/18 Time of Evaluation: 10:30 - Subjective Subjective: Patient seen and examined. Admitted feeling better and stronger. Objective - Vital Signs/Intake and Output Vital Signs (last 24 hours): Temp Pulse Resp BP Pulse Ox 98.0 F 84 20 106/68 97 12/19/18 08:11 12/19/18 08:38 12/19/18 08:11 12/19/18 08:38 12/19/18 08:11 - Medications Medications: Current Medications Carvedilol (Coreg) 25 mg PO Q12 [facility] Last Admin: 12/19/18 08:38 Dose: 25 mg Clopidogrel Bisulfate (Plavix) 75 mg PO DAILY [facility] Last Admin: 12/19/18 08:40 Dose: 75 mg Docusate Sodium (Colace) 100 mg PO DAILY [facility] Last Admin: 12/19/18 08:39 Dose: 100 mg Finasteride (Proscar) 5 mg PO DAILY [facility] Last Admin: 12/19/18 08:40 Dose: 5 mg Gabapentin (Neurontin) 300 mg PO DAILY [facility] Last Admin: 12/19/18 08:39 Dose: 300 mg Guaifenesin (Robitussin) 100 mg PO Q4 PRN PRN Reason: Cough Last Admin: 12/19/18 08:38 Dose: 100 mg Lisinopril (Zestril) 5 mg PO DAILY [facility] Last Admin: 12/19/18 08:38 Dose: 5 mg Rivaroxaban (Xarelto) 10 mg PO QD5 [facility]; Protocol Last Admin: 12/18/18 16:41 Dose: 10 mg Tamsulosin HCl (Flomax) 0.4 mg PO DAILY [facility] Last Admin: 12/19/18 08:39 Dose: 0.4 mg Zolpidem Tartrate (Ambien) 5 mg PO ONCE PRN PRN Reason: Insomnia Last Admin: 12/17/18 23:03 Dose: 5 mg - Labs Labs: 12/19/18 06:30 - Constitutional Appears: No Acute Distress - Head Exam Head Exam: ATRAUMATIC - Eye Exam Eye Exam: absent: Scleral icterus - ENT Exam ENT Exam: Mucous Membranes Moist - Neck Exam Neck Exam: absent: Meningismus - Respiratory Exam Respiratory Exam: absent: Rales, Rhonchi, Wheezes, Respiratory Distress - Cardiovascular Exam Cardiovascular Exam: REGULAR RHYTHM, +S1, +S2 - GI/Abdominal Exam GI & Abdominal Exam: Soft. absent: Tenderness - Rectal Exam Rectal Exam: Deferred - Neurological Exam Neurological Exam: Alert, Oriented x3 - Psychiatric Exam Psychiatric exam: Normal Affect - Skin Skin Exam: Dry, Intact Assessment and Plan - Assessment and Plan (Free Text) Assessment: 78 yo male with history of CAD, CHF and AFib admitted to TCU for therapy because of deconditioning. 1. Deconditioning continue PT/OT 2.CAD asymptomatic and stable continue Coreg, Plavix 3. CHF stable continue Coreg and Lisinopril off Lasix and Aldactone due to hyponatremia 4. Hyponatremia likely due to the diuretics Na: 131 today Nephrology consult with Dr. Spaulding continue fluid restriction @900ml per day off diuretics 5. Urinary Retention likely due to Prostatic Enlargement continue Finasteride and Tamsulosin 6. A Fib, chronic with RVR rate controlled continue Coreg and Xarelto
[2018-12-22 15:43] VITALS: RESP 20
--- NOTE | 2018-12-24 12:06 | CP.PCM.PN ---
Subjective - Date & Time of Evaluation Date of Evaluation: 12/24/18 Time of Evaluation: 12:06 - Subjective Subjective: hd stbale no complaints Objective - Vital Signs/Intake and Output Vital Signs (last 24 hours): Temp Pulse Resp BP Pulse Ox 97.4 F L 90 20 116/78 97 12/24/18 10:42 12/24/18 10:42 12/24/18 10:42 12/24/18 10:42 12/24/18 10:42 Gen: WDWN, cooperative HEENT: NCAT, PERRL HEART: RRR S1S2 LUNG: CTAB NO WRR ABD: SOFT NT ND NO MASS EXT: WARM, WELL PERFUSED SKIN: WARM, NO RASHES NEURO: AWAKE, ALERT PSYCH: NORMAL MOOD, NORMAL AFFECT - Medications Medications: Current Medications Acetaminophen (Tylenol 325mg Tab) 650 mg PO Q6 PRN PRN Reason: Headache Last Admin: 12/23/18 06:00 Dose: 650 mg Carvedilol (Coreg) 25 mg PO Q12 [facility] Last Admin: 12/24/18 08:52 Dose: 25 mg Clopidogrel Bisulfate (Plavix) 75 mg PO DAILY [facility] Last Admin: 12/24/18 08:53 Dose: 75 mg Docusate Sodium (Colace) 100 mg PO DAILY [facility] Last Admin: 12/24/18 08:55 Dose: 100 mg Finasteride (Proscar) 5 mg PO DAILY [facility] Last Admin: 12/24/18 08:55 Dose: 5 mg Gabapentin (Neurontin) 300 mg PO DAILY [facility] Last Admin: 12/24/18 08:56 Dose: 300 mg Guaifenesin (Robitussin) 100 mg PO Q4 PRN PRN Reason: Cough Last Admin: 12/19/18 16:23 Dose: 100 mg Lisinopril (Zestril) 5 mg PO DAILY [facility] Last Admin: 12/24/18 08:54 Dose: 5 mg Rivaroxaban (Xarelto) 10 mg PO QD5 [facility]; Protocol Last Admin: 12/23/18 16:50 Dose: 10 mg Tamsulosin HCl (Flomax) 0.4 mg PO DAILY [facility] Last Admin: 12/24/18 08:55 Dose: 0.4 mg Temazepam (Restoril) 15 mg PO HS PRN PRN Reason: Insomnia Last Admin: 12/24/18 02:03 Dose: 15 mg - Labs Labs: 05/02/19 06:30 Assessment and Plan - Assessment and Plan (Free Text) Plan: 78 yo male with history of CAD, CHF and AFib admitted to TCU for therapy because of deconditioning. 1. Deconditioning continue PT/OT 2.CAD asymptomatic and stable continue Coreg, Plavix 3. CHF stable continue Coreg and Lisinopril off Lasix and Aldactone due to hyponatremia 4. Hyponatremia likely due to the diuretics Na: 131 today Nephrology consult with Dr. Spaulding continue fluid restriction @900ml per day off diuretics 5. Urinary Retention likely due to Prostatic Enlargement continue Finasteride and Tamsulosin 6. A Fib, chronic with RVR rate controlled continue Coreg and Xarelto
--- NOTE | 2018-12-24 14:23 | CP.PCM.CON ---
History of Present Illness - History of Present Illness History of Present Illness: consult requested for irritability episodes pt is 78 yr old M admitted to TCU for PT/OT for deconditioning s/p discharge from telemetry for treatment of CHF exacerbation and NSTEMI. PMHx is significant for recent PCI 5 stents placed at [place] 1 month ago Afib, BPH, HTN. reportedly pt had an episode of agitation during physical therapy on evaluation pt denied any previous psychiatric treatment or hospitalization, currently retired construction project administrator, seperated from lives by self, in touch with his children and grand children, pt reported currently feels down as he has not received visits from his children since his hospitalization also feeling down due to his current medical condition, reported occasional decreased sleep with early insomnia , no changes in appetite episodes of crying and irritability, pt denied any current suicidal or homicidal ideation, denied perceptual disturbances, alert awake ox3 Past Patient History - Infectious Disease Hx of Infectious Diseases: None - Tetanus Immunizations Tetanus Immunization: Up to Date - Past Medical History & Family History Past Medical History?: Yes - Past Social History Smoking Status: Never Smoked - CARDIAC Hx Cardiac Disorders: Yes Hx Atrial Fibrillation: Yes Hx Hypertension: Yes - PULMONARY Hx Respiratory Disorders: No - NEUROLOGICAL Hx Neurological Disorder: No - HEENT Hx HEENT Problems: No - RENAL Hx Chronic Kidney Disease: No - ENDOCRINE/METABOLIC Hx Endocrine Disorders: No - HEMATOLOGICAL/ONCOLOGICAL Hx Blood Disorders: No Hx AIDS: No Hx Human Immunodeficiency Virus (HIV): No - INTEGUMENTARY Hx Dermatological Problems: No - MUSCULOSKELETAL/RHEUMATOLOGICAL Hx Musculoskeletal Disorders: Yes Hx Falls: No Hx Herniated Disk: Yes - GASTROINTESTINAL Hx Gastrointestinal Disorders: No Hx Bowel Surgery: No - GENITOURINARY/GYNECOLOGICAL Hx Genitourinary Disorders: Yes Hx Bladder Stone: Yes (kidney stones) Hx Hematuria: Yes Hx Prostate Problems: Yes (BPH) - PSYCHIATRIC Hx Substance Use: No - SURGICAL HISTORY Hx Surgeries: Yes Hx Herniorrhaphy: Yes - ANESTHESIA Hx Anesthesia: Yes Hx Anesthesia Reactions: No Hx Malignant Hyperthermia: No Meds Allergies/Adverse Reactions: Allergies Allergy/AdvReac Type Severity Reaction Status Date / Time No Known Allergies Allergy Verified 12/17/18 17:53 - Medications Medications: Current Medications Acetaminophen (Tylenol 325mg Tab) 650 mg PO Q6 PRN PRN Reason: Headache Last Admin: 12/23/18 06:00 Dose: 650 mg Carvedilol (Coreg) 25 mg PO Q12 [facility] Last Admin: 12/24/18 08:52 Dose: 25 mg Clopidogrel Bisulfate (Plavix) 75 mg PO DAILY [facility] Last Admin: 12/24/18 08:53 Dose: 75 mg Docusate Sodium (Colace) 100 mg PO DAILY [facility] Last Admin: 12/24/18 08:55 Dose: 100 mg Finasteride (Proscar) 5 mg PO DAILY [facility] Last Admin: 12/24/18 08:55 Dose: 5 mg Gabapentin (Neurontin) 300 mg PO DAILY [facility] Last Admin: 12/24/18 08:56 Dose: 300 mg Guaifenesin (Robitussin) 100 mg PO Q4 PRN PRN Reason: Cough Last Admin: 12/19/18 16:23 Dose: 100 mg Lisinopril (Zestril) 5 mg PO DAILY [facility] Last Admin: 12/24/18 08:54 Dose: 5 mg Rivaroxaban (Xarelto) 10 mg PO QD5 [facility]; Protocol Last Admin: 12/23/18 16:50 Dose: 10 mg Tamsulosin HCl (Flomax) 0.4 mg PO DAILY [facility] Last Admin: 12/24/18 08:55 Dose: 0.4 mg Temazepam (Restoril) 15 mg PO HS PRN PRN Reason: Insomnia Last Admin: 12/24/18 02:03 Dose: 15 mg Results - Vital Signs Recent Vital Signs: Last Vital Signs Temp 97.4 F L 12/24/18 10:42 Pulse 90 12/24/18 10:42 Resp 20 12/24/18 10:42 BP 116/78 12/24/18 10:42 Pulse Ox 97 12/24/18 10:42 - Labs Result Diagrams: 12/19/18 06:30 Assessment & Plan - Assessment and Plan (Free Text) Assessment: mood disorder due to medical condition with depressive features Plan: recommend to start zoloft 12.5mg daily recommend to discontinue temazepam for risk of falls and risk of dependence and start trazodone 50mg qhs
--- NOTE | 2018-12-24 15:48 | CP.PCM.CON ---
History of Present Illness - History of Present Illness History of Present Illness: Consultation for hx of CHF/ CAD s/p multivessel PCI of LAD/LCx and RCA / afib HPI: Shlomo is a pleasant 78-year-old male with past medical history significant for atrial fibrillation who was evaluated by me about 3 months ago at which time he was found to be a new onset CHF he underwent a nuclear stress test which was suggestive of ischemia and multivessel territory he was subsequently transferred over to [place] where he underwent a high risk angioplasty and stenting of multivessel PCI with Impala left ventricular assist device to 3 weeks postprocedure he developed severe hypovolemic hyponatremia and was admitted to [facility] was kept on IV fluid gentle hydration state hospital course was complicated by hematuria for which his Plavix and Xarelto had to be kept on hold patient continued to improve clinically and BNP dropped down to 739 subsequent was transferred over to the TCU he is doing fairly well over a year improving in his exercise tolerance no episodes of chest pain or shortness of breath. Review of Systems - Review of Systems Systems not reviewed;Unavailable: Acuity of Condition - Constitutional Constitutional: As Per HPI - EENT Eyes: As Per HPI Nose/Mouth/Throat: As Per HPI - Cardiovascular Cardiovascular: As Per HPI - Respiratory Respiratory: As Per HPI - Gastrointestinal Gastrointestinal: As Per HPI - Genitourinary Genitourinary: As Per HPI - Reproductive: Male Reproductive:Male: As Per HPI - Musculoskeletal Musculoskeletal: As Per HPI - Integumentary Integumentary: As Per HPI - Neurological Neurological: As Per HPI - Psychiatric Psychiatric: As Per HPI - Endocrine Endocrine: As Per HPI - Hematologic/Lymphatic Hematologic: As Per HPI Past Patient History - Infectious Disease Hx of Infectious Diseases: None - Tetanus Immunizations Tetanus Immunization: Up to Date - Past Medical History & Family History Past Medical History?: Yes - Past Social History Smoking Status: Never Smoked - CARDIAC Hx Cardiac Disorders: Yes Hx Atrial Fibrillation: Yes Hx Hypertension: Yes - PULMONARY Hx Respiratory Disorders: No - NEUROLOGICAL Hx Neurological Disorder: No - HEENT Hx HEENT Problems: No - RENAL Hx Chronic Kidney Disease: No - ENDOCRINE/METABOLIC Hx Endocrine Disorders: No - HEMATOLOGICAL/ONCOLOGICAL Hx Blood Disorders: No Hx AIDS: No Hx Human Immunodeficiency Virus (HIV): No - INTEGUMENTARY Hx Dermatological Problems: No - MUSCULOSKELETAL/RHEUMATOLOGICAL Hx Musculoskeletal Disorders: Yes Hx Falls: No Hx Herniated Disk: Yes - GASTROINTESTINAL Hx Gastrointestinal Disorders: No Hx Bowel Surgery: No - GENITOURINARY/GYNECOLOGICAL Hx Genitourinary Disorders: Yes Hx Bladder Stone: Yes (kidney stones) Hx Hematuria: Yes Hx Prostate Problems: Yes (BPH) - PSYCHIATRIC Hx Substance Use: No - SURGICAL HISTORY Hx Surgeries: Yes Hx Herniorrhaphy: Yes - ANESTHESIA Hx Anesthesia: Yes Hx Anesthesia Reactions: No Hx Malignant Hyperthermia: No Meds Allergies/Adverse Reactions: Allergies Allergy/AdvReac Type Severity Reaction Status Date / Time No Known Allergies Allergy Verified 12/17/18 17:53 - Medications Medications: Current Medications Acetaminophen (Tylenol 325mg Tab) 650 mg PO Q6 PRN PRN Reason: Headache Last Admin: 12/23/18 06:00 Dose: 650 mg Carvedilol (Coreg) 25 mg PO Q12 [facility] Last Admin: 12/24/18 08:52 Dose: 25 mg Clopidogrel Bisulfate (Plavix) 75 mg PO DAILY [facility] Last Admin: 12/24/18 08:53 Dose: 75 mg Docusate Sodium (Colace) 100 mg PO DAILY [facility] Last Admin: 12/24/18 08:55 Dose: 100 mg Finasteride (Proscar) 5 mg PO DAILY [facility] Last Admin: 12/24/18 08:55 Dose: 5 mg Gabapentin (Neurontin) 300 mg PO DAILY [facility] Last Admin: 12/24/18 08:56 Dose: 300 mg Guaifenesin (Robitussin) 100 mg PO Q4 PRN PRN Reason: Cough Last Admin: 12/19/18 16:23 Dose: 100 mg Lisinopril (Zestril) 5 mg PO DAILY [facility] Last Admin: 12/24/18 08:54 Dose: 5 mg Rivaroxaban (Xarelto) 10 mg PO QD5 [facility]; Protocol Last Admin: 12/23/18 16:50 Dose: 10 mg Tamsulosin HCl (Flomax) 0.4 mg PO DAILY [facility] Last Admin: 12/24/18 08:55 Dose: 0.4 mg Temazepam (Restoril) 15 mg PO HS PRN PRN Reason: Insomnia Last Admin: 12/24/18 02:03 Dose: 15 mg Physical Exam - Constitutional Appears: Well - Head Exam Head Exam: ATRAUMATIC, NORMAL INSPECTION, NORMOCEPHALIC - Eye Exam Eye Exam: EOMI, Normal appearance, PERRL Pupil Exam: NORMAL ACCOMODATION, PERRL - ENT Exam ENT Exam: Mucous Membranes Moist, Normal Exam - Neck Exam Neck exam: Positive for: Normal Inspection - Respiratory Exam Respiratory Exam: Clear to Auscultation Bilateral, NORMAL BREATHING PATTERN - Cardiovascular Exam Cardiovascular Exam: Irregular Rhythm, +S1, +S2, Systolic Murmur - GI/Abdominal Exam GI & Abdominal Exam: Normal Bowel Sounds, Soft. absent: Tenderness - Extremities Exam Extremities exam: Positive for: normal inspection - Back Exam Back exam: NORMAL INSPECTION - Neurological Exam Neurological exam: Alert, CN II-XII Intact, Normal Gait, Oriented x3, Reflexes Normal - Psychiatric Exam Psychiatric exam: Normal Affect, Normal Mood - Skin Skin Exam: Dry, Intact, Normal Color, Warm Results - Vital Signs Recent Vital Signs: Last Vital Signs Temp 97.4 F L 12/24/18 10:42 Pulse 90 12/24/18 10:42 Resp 20 12/24/18 10:42 BP 116/78 12/24/18 10:42 Pulse Ox 97 12/24/18 10:42 - Labs Result Diagrams: 12/19/18 06:30 Assessment & Plan (1) CAD (coronary artery disease) Assessment and Plan: cont plavivx, coreg Status: Acute (2) CHF exacerbation Assessment and Plan: cont lisinopril,coreg Status: Acute (3) Hematuria Assessment and Plan: stable Status: Acute (4) 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
[2018-12-25 06:40] LABS: BASO % 0.4 % (0.0-2.0); EOS # 0.2 K/uL (0.0-0.7); EOS % 4.2 % (0.0-4.0); LYMPH # 1.2 K/uL (1.0-4.3); LYMPH % 24.8 % (20.0-40.0); MEAN CELL VOLUME 83.7 fl (80.0-94.0); MEAN CORPUSCULAR HEMOGLOBIN 28.1 pg (27.0-31.0); MEAN CORPUSCULAR HGB CONC 33.5 g/dL (33.0-37.0); MEAN PLATELET VOLUME 8.3 fl (7.2-11.7); MONO # 0.5 K/uL (0.0-0.8); MONO % 10.5 % (0.0-10.0); NEUT # 2.9 K/uL (1.8-7.0); NEUT % 60.1 % (50.0-75.0); RBC 4.27 Mil/uL (4.40-5.90); RED CELL DISTRIBUTION WIDTH 14.3 % (11.5-14.5); WHITE BLOOD COUNT 4.8 K/uL (4.8-10.8)
[2018-12-26 07:54] VITALS: PULSE 92; TEMP 98.5; O2SAT 97
[2018-12-26 08:47] VITALS: BP 129/76
--- NOTE | 2018-12-26 13:40 | CP.PCM.DIS ---
Provider - Provider Date of Admission: 12/17/18 20:45 Attending physician: Debbie Mtz DO Consults: 12/24/18 13:13 Psychiatry Consult Routine Comment: Consulting Provider: Neville Mcintyre Consulting Physician: Neville Mcintyre Reason for Consult: mood disorder 12/24/18 16:49 Cardiology Consult Routine Comment: Consulting Provider: Joey Moreno Consulting Physician: Joey Moreno Reason for Consult: follow up Time Spent in preparation of Discharge (in minutes): 25 Diagnosis - Discharge Diagnosis (1) Physical deconditioning Status: Acute Comment: improved (2) CAD (coronary artery disease) Status: Chronic Comment: stable. continue Coreg and Plavix (3) CHF exacerbation Status: Chronic Comment: stable. continue Coreg and Lisinopril. off Lasix and Aldactone because of hyponatremia (4) Afib Status: Chronic Comment: rate controlled. continue Coreg and Xarelto (5) Hyponatremia Status: Acute Comment: continue fluid restriction. off diuretics (6) BPH (benign prostatic hyperplasia) Status: Chronic Comment: continue Finasteride and Tamsulosin Hospital Course - Lab Results Lab Results: Most Recent Lab Values WBC 4.8 K/uL (4.8-10.8) 12/25/18 05:20 RBC 4.27 Mil/uL (4.40-5.90) L 12/25/18 05:20 Hgb 12.0 g/dL (12.0-18.0) 12/25/18 05:20 Hct 35.7 % (35.0-51.0) 12/25/18 05:20 MCV 83.7 fl (80.0-94.0) 12/25/18 05:20 MCH 28.1 pg (27.0-31.0) 12/25/18 05:20 MCHC 33.5 g/dL (33.0-37.0) 12/25/18 05:20 RDW 14.3 % (11.5-14.5) 12/25/18 05:20 Plt Count 209 K/uL (130-400) 12/25/18 05:20 MPV 8.3 fl (7.2-11.7) 12/25/18 05:20 Neut % (Auto) 60.1 % (50.0-75.0) 12/25/18 05:20 Lymph % (Auto) 24.8 % (20.0-40.0) 12/25/18 05:20 [place] % (Auto) 10.5 % (0.0-10.0) H 12/25/18 05:20 Eos % (Auto) 4.2 % (0.0-4.0) H 12/25/18 05:20 Baso % (Auto) 0.4 % (0.0-2.0) 12/25/18 05:20 Neut # (Auto) 2.9 K/uL (1.8-7.0) 12/25/18 05:20 Lymph # (Auto) 1.2 K/uL (1.0-4.3) 12/25/18 05:20 [place] # (Auto) 0.5 K/uL (0.0-0.8) 12/25/18 05:20 Eos # (Auto) 0.2 K/uL (0.0-0.7) 12/25/18 05:20 Baso # (Auto) 0.0 K/uL (0.0-0.2) 12/25/18 05:20 Sodium 131 mmol/l (132-148) L 12/19/18 06:30 Potassium 4.0 MMOL/L (3.6-5.0) 12/19/18 06:30 Chloride 98 mmol/L (98-107) 12/19/18 06:30 Carbon Dioxide 23 mmol/L (22-30) 12/19/18 06:30 Anion Gap 14 (10-20) 12/19/18 06:30 BUN 21 mg/dl (9-20) H 12/19/18 06:30 Creatinine 0.6 mg/dl (0.8-1.5) L 12/19/18 06:30 Est GFR ( Amer) > 60 12/19/18 06:30 Est GFR (Non-Af Amer) > 60 12/19/18 06:30 Random Glucose 97 mg/dL (75-110) 12/19/18 06:30 Calcium 8.6 mg/dL (8.4-10.2) 12/19/18 06:30 NT-Pro-B Natriuret Pep 1020 pg/ml (0-900) H 12/25/18 05:20 - Hospital Course Hospital Course: 78 yo male with history of CAD, CHF, AFib and HTN admitted initially because of CHF exacerbation. His condition was improved but needed further therapy because of deconditioning. He was transferred to TCU and did well. Patient is now ready for discharge. Discharge Exam - Head Exam Head Exam: ATRAUMATIC, NORMAL INSPECTION, NORMOCEPHALIC - Eye Exam Eye Exam: Normal appearance - ENT Exam ENT Exam: Mucous Membranes Moist - Respiratory Exam Respiratory Exam: absent: Rales, Rhonchi, Wheezes, Respiratory Distress - Cardiovascular Exam Cardiovascular Exam: REGULAR RHYTHM, +S1, +S2 - GI/Abdominal Exam GI & Abdominal Exam: Soft. absent: Tenderness - Rectal Exam Rectal Exam: Deferred - Neurological Exam Neurological exam: Alert, Oriented x3 - Psychiatric Exam Psychiatric exam: Normal Affect - Skin Skin Exam: Dry, Intact Discharge Plan - Follow Up Plan Condition: GOOD Disposition: HOME/ ROUTINE
--- NOTE | 2018-12-26 16:51 | CP.PCM.PN ---
Subjective - Date & Time of Evaluation Date of Evaluation: 12/26/18 Time of Evaluation: 16:49 - Subjective Subjective: [id number] being discharged today off diuretics Objective - Vital Signs/Intake and Output Vital Signs (last 24 hours): Temp Pulse Resp BP Pulse Ox 98.5 F 92 H 20 129/76 97 12/26/18 07:53 12/26/18 08:44 12/26/18 07:53 12/26/18 08:44 12/26/18 07:53 - Medications Medications: Current Medications Acetaminophen (Tylenol 325mg Tab) 650 mg PO Q6 PRN PRN Reason: Headache Last Admin: 12/23/18 06:00 Dose: 650 mg Carvedilol (Coreg) 25 mg PO Q12 [facility] Last Admin: 12/26/18 08:44 Dose: 25 mg Clopidogrel Bisulfate (Plavix) 75 mg PO DAILY [facility] Last Admin: 12/26/18 08:45 Dose: 75 mg Docusate Sodium (Colace) 100 mg PO DAILY [facility] Last Admin: 12/26/18 08:44 Dose: 100 mg Finasteride (Proscar) 5 mg PO DAILY [facility] Last Admin: 12/26/18 08:45 Dose: 5 mg Gabapentin (Neurontin) 300 mg PO DAILY [facility] Last Admin: 12/26/18 08:44 Dose: 300 mg Guaifenesin (Robitussin) 100 mg PO Q4 PRN PRN Reason: Cough Last Admin: 12/19/18 16:23 Dose: 100 mg Lisinopril (Zestril) 5 mg PO DAILY [facility] Last Admin: 12/26/18 08:44 Dose: 5 mg Rivaroxaban (Xarelto) 10 mg PO QD5 [facility]; Protocol Last Admin: 12/25/18 17:29 Dose: 10 mg Sertraline HCl (Zoloft) 12.5 mg PO DAILY [facility] Last Admin: 12/26/18 08:45 Dose: 12.5 mg Tamsulosin HCl (Flomax) 0.4 mg PO DAILY [facility] Last Admin: 12/26/18 08:45 Dose: 0.4 mg Trazodone HCl (Desyrel) 50 mg PO HS [facility] Last Admin: 12/25/18 21:24 Dose: 50 mg - Labs Labs: 12/25/18 05:20 12/19/18 06:30 - Constitutional Appears: Well - Head Exam Head Exam: ATRAUMATIC, NORMAL INSPECTION, NORMOCEPHALIC - Eye Exam Eye Exam: EOMI, Normal appearance, PERRL Pupil Exam: NORMAL ACCOMODATION, PERRL - ENT Exam ENT Exam: Mucous Membranes Moist, Normal Exam - Neck Exam Neck Exam: Full ROM, Normal Inspection. absent: Lymphadenopathy - Respiratory Exam Respiratory Exam: Clear to Ausculation Bilateral, NORMAL BREATHING PATTERN - Cardiovascular Exam Cardiovascular Exam: REGULAR RHYTHM, +S1, +S2. absent: Murmur - GI/Abdominal Exam GI & Abdominal Exam: Soft, Normal Bowel Sounds. absent: Tenderness - Extremities Exam Extremities Exam: Full ROM, Normal Capillary Refill, Normal Inspection. 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
== END 2018-12-26 14:41 | disposition home health service (06) | DRG 292 ==
LOC: H.TCU 20:45
PROVIDERS: ADMIT Student in an Organized Health Care Education/Training Program; ATTEND Student in an Organized Health Care Education/Training Program
PROC: F07L6GZ Therapeutic Exercise Treatment of Musculoskeletal System - Lower Back / Lower Extremity using Aerobic Endurance and Conditioning Equipment (ICD-10-PCS; principal; 2018-12-17)
PROC: F07Z9ZZ Gait Training/Functional Ambulation Treatment (ICD-10-PCS; 2018-12-17)
PROC: F08Z1FZ Dressing Techniques Treatment using Assistive, Adaptive, Supportive or Protective Equipment (ICD-10-PCS; 2018-12-17)
DX: I11.0 Hypertensive heart disease with heart failure (principal); E87.1 Hypo-osmolality and hyponatremia; I50.42 Chronic combined systolic (congestive) and diastolic (congestive) heart failure; N40.1 Benign prostatic hyperplasia with lower urinary tract symptoms; R33.8 Other retention of urine; T50.2X5A Adverse effect of carbonic-anhydrase inhibitors, benzothiadiazides and other diuretics, initial encounter; Z95.5 Presence of coronary angioplasty implant and graft; I25.5 Ischemic cardiomyopathy; I48.2 Chronic atrial fibrillation; I25.10 Atherosclerotic heart disease of native coronary artery without angina pectoris; F06.31 Mood disorder due to known physiological condition with depressive features; G47.00 Insomnia, unspecified